=== PATIENT | female | born 1965 ===

== ENCOUNTER 2020-02-19 10:26 | Outpatient (REF) | payer OTHER, SELFPAY ==
[2020-02-20 09:44] LABS: BV Int Neg Control Negative (Negative); BV Int Pos Control Positive (Positive)
[2020-03-16 11:27] LABS: CT PCR NOT DETECTED (Not Detect.); NG PCR NOT DETECTED (Not Detect.)
== END 2020-02-19 10:27 | disposition home or self-care (01) ==
LOC: HO.LAB 10:26
PROVIDERS: PCP Internal Medicine; Visit Provider Advanced Practice Midwife
DX: N89.8 Other specified noninflammatory disorders of vagina (principal)
CPT/HCPCS: 81003; 87210; 87480; 87491; 87510; 87591; 87660; 99202

== ENCOUNTER 2020-02-26 15:24 | Outpatient (REF) | payer OTHER, SELFPAY ==
[2020-02-29 11:18] LABS: HPV mRNA E6/E7 rflx Not Detected (Not Detected)
== END 2020-02-26 15:25 | disposition home or self-care (01) ==
LOC: HO.LAB 15:24
PROVIDERS: Visit Provider Advanced Practice Midwife
DX: Z01.419 Encounter for gynecological examination (general) (routine) without abnormal findings (principal); N88.9 Noninflammatory disorder of cervix uteri, unspecified; N62 Hypertrophy of breast; Z11.51 Encounter for screening for human papillomavirus (HPV); Z78.0 Asymptomatic menopausal state
CPT/HCPCS: 87624; 87625; 88142

== ENCOUNTER 2020-03-07 09:52 | Outpatient (REF) | payer OTHER, SELFPAY ==
--- NOTE | 2020-03-07 09:58 | XR_ITS ---
EXAMINATION: XR LUMBOSACRAL SPINE CLINICAL INFORMATION: Low back pain COMPARISON: 07/15/2018 TECHNIQUE: AP and lateral views of the lumbar spine with an additional coned down lateral spot view of the lumbosacral junction. FINDINGS: 5 non-rib bearing lumbar type vertebral bodies are seen. The body and disc heights are maintained. Minimal anterior osteophytosis from the superior endplates of L3, L4, and L5. No compression fracture. Normal sagittal alignment. Lower lumbar facet arthropathy. Sacroiliac joints are patent. 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 Mild degenerative changes similar to the prior study.
== END 2020-03-07 09:53 | disposition home or self-care (01) ==
LOC: HO.XRAY 09:52
PROVIDERS: PCP Internal Medicine; Visit Provider Student in an Organized Health Care Education/Training Program
DX: M54.5 Low back pain (principal)
CPT/HCPCS: 72100

== ENCOUNTER 2020-03-11 12:19 | Outpatient (REF) | payer OTHER, SELFPAY ==
--- NOTE | 2020-03-11 12:24 | MM_ITS ---
EXAMINATION: MM SCREENING DIGITAL BREAST TOMOSYNTHESIS, BILATERAL CLINICAL INFORMATION: Screening. Asymptomatic. The lifetime risk of breast cancer based on the Tyrer-Cuzick Model is 7%. COMPARISON: Mammography: 01/02/2019, 12/29/2017, 11/30/2016, 11/23/2016, 11/20/2015 TECHNIQUE: Digital breast tomosynthesis is performed in both the craniocaudal and mediolateral oblique views along with computer-aided detection (CAD). Synthesized 2D images are generated from the tomosynthesis. Additional right MLO view is provided. FINDINGS: There are scattered areas of fibroglandular density (ACR BI-RADS breast composition Category b). Parenchymal pattern is similar to prior studies. Scattered subtle parenchymal asymmetries are stable. There is no developing density or interval mass or architectural abnormality. No abnormal calcifications. The axilla and skin contours are unremarkable. MM/MM tomosynthesis screening BI IMPRESSION: No significant changes from prior studies. ASSESSMENT: BI-RADS 2: Benign RECOMMENDATION: Routine annual mammography screening. This patient's information was entered into a reminder system with a target due date for their next mammogram.
== END 2020-03-11 12:20 | disposition home or self-care (01) ==
LOC: HO.MAMMO 12:19
PROVIDERS: PCP Internal Medicine; Visit Provider Internal Medicine
DX: Z12.31 Encounter for screening mammogram for malignant neoplasm of breast (principal)
CPT/HCPCS: 77063; 77067

== ENCOUNTER 2020-03-14 10:20 | Outpatient (REF) | payer OTHER, SELFPAY ==
[2020-03-15 19:57] LABS: C. trachomatis RNA TMA NOT DETECTED (NOT DETECTED); N. gonorrhoeae RNA TMA NOT DETECTED (NOT DETECTED)
== END 2020-03-14 10:21 | disposition home or self-care (01) ==
LOC: HO.LAB 10:20
PROVIDERS: PCP Internal Medicine; Visit Provider Advanced Practice Midwife
DX: N88.9 Noninflammatory disorder of cervix uteri, unspecified (principal); N89.8 Other specified noninflammatory disorders of vagina
CPT/HCPCS: 36415; 87491; 87591; 99212

== ENCOUNTER 2020-03-27 08:25 | Outpatient (REF) | payer OTHER, SELFPAY ==
[2020-03-28 08:40] LABS: BV Int Neg Control Negative (Negative); BV Int Pos Control Positive (Positive)
[2020-03-29 07:51] LABS: C. trachomatis RNA TMA NOT DETECTED (NOT DETECTED); N. gonorrhoeae RNA TMA NOT DETECTED (NOT DETECTED)
== END 2020-03-27 08:26 | disposition home or self-care (01) ==
LOC: HO.LNP 08:25
PROVIDERS: PCP Internal Medicine; Visit Provider Obstetrics & Gynecology
DX: N89.8 Other specified noninflammatory disorders of vagina (principal); E78.5 Hyperlipidemia, unspecified; Z11.8 Encounter for screening for other infectious and parasitic diseases; Z11.3 Encounter for screening for infections with a predominantly sexual mode of transmission; Z88.0 Allergy status to penicillin
CPT/HCPCS: 87480; 87491; 87510; 87591; 87660; 99212

== ENCOUNTER 2020-04-10 08:12 | Outpatient (REF) | payer OTHER, SELFPAY | END 2020-04-10 08:13 | disposition home or self-care (01) | LOC: HO.LAB 08:12 | PROVIDERS: PCP Internal Medicine; Visit Provider Obstetrics & Gynecology | DX: N87.0 Mild cervical dysplasia (principal) | CPT/HCPCS: 57454; 88305 ==

== ENCOUNTER 2020-04-23 10:18 | Outpatient (REF) | payer OTHER, SELFPAY ==
[2020-04-23 11:04] LABS: MANUAL DIFF FLAG NO
[2020-04-23 11:11] LABS: Basophils Percent Auto 0.3 % (0-2); Eosinophils Percent Auto 0.1 % (0-4); Hematocrit 36.7 % (37-47); Hemoglobin 12.2 g/dl (12.0-16.0); Imm Gran Abs Auto 0.04 X10*3/uL (0.00-0.03); Imm Gran Pct Auto 0.6 % (0.0-0.4); Lymphocytes Absolute Auto 2.1 X10*3/uL (1.2-4.9); Lymphocytes Percent Auto 30.9 % (20-40); Mean Corpuscular HGB Conc 33.2 g/dl (31.0-35.0); Mean Corpuscular Hemoglobin 31.4 pg (27.0-33.0); Mean Corpuscular Volume 94.6 fL (80-98); Mean Platelet Volume 10.3 fL (9.4-12.3); Monocytes Absolute Auto 0.5 X10*3/uL (0.1-1.2); Monocytes Percent Auto 6.9 % (2-11); Neutrophils Absolute Auto 4.2 X10*3/uL (2.0-8.3); Neutrophils Percent Auto 61.2 % (45-73); Platelet Count 307 X10*3/uL (160-400); Red Blood Count 3.88 X10*6/uL (4.20-5.50); Red Cell Distribution Width 13.1 % (11.0-16.0); White Blood Count 6.9 X10*3/uL (4.8-10.8)
[2020-04-23 11:16] LABS: Estimated Average Glucose 111 mg/dL; Hemoglobin A1c % 5.5 %
[2020-04-24 17:36] LABS: C. trachomatis RNA TMA NOT DETECTED (NOT DETECTED); N. gonorrhoeae RNA TMA NOT DETECTED (NOT DETECTED)
== END 2020-04-23 10:19 | disposition home or self-care (01) ==
LOC: HO.LAB 10:18
PROVIDERS: PCP Internal Medicine; Visit Provider Nurse Practitioner Family
DX: Z00.00 Encounter for general adult medical examination without abnormal findings (principal); N89.8 Other specified noninflammatory disorders of vagina
CPT/HCPCS: 36415; 83036; 85025; 87491; 87591

== ENCOUNTER 2020-04-24 11:17 | Emergency (ER) | payer OTHER, SELFPAY | END 2020-04-24 15:17 | disposition left against medical advice (07) | PROVIDERS: Emergency Provider Emergency Medicine; PCP Internal Medicine | DX: M54.5 Low back pain (principal) | CPT/HCPCS: Q3014 ==

== ENCOUNTER 2020-04-24 12:58 | Outpatient (REF) | payer OTHER, SELFPAY ==
--- NOTE | ~2020-04-24 | XR_ITS ---
EXAMINATION: XR SHOULDER, RIGHT CLINICAL INFORMATION: Right shoulder pain. COMPARISON: None TECHNIQUE: AP external rotation, Grashey, scapular Y, and axillary views of the right shoulder. FINDINGS: The bones and soft tissues are normal. No fracture. Glenohumeral and acromioclavicular alignment is anatomic with normal joint space. No abnormal soft tissue calcifications. XR/XR shoulder RT min 2V IMPRESSION: Unremarkable right shoulder.
--- NOTE | ~2020-04-24 | XR_ITS ---
EXAMINATION: XR THORACIC SPINE CLINICAL INFORMATION: Back pain. COMPARISON: None TECHNIQUE: 3 views of the thoracic spine were obtained. FINDINGS: Mild thoracic levoscoliosis is seen. Mild disc space narrowing is seen superiorly in the thoracic spine. Mild to moderate multilevel marginal osteophyte formation is seen most pronounced inferiorly. The vertebral bodies are intact. There is no acute fracture. The soft tissues are unremarkable. XR/XR thoracic spine 3V IMPRESSION: Mild thoracic levoscoliosis and mild to moderate multilevel degenerative changes. No acute abnormality.
== END 2020-04-24 12:59 | disposition home or self-care (01) ==
LOC: HO.XRAY 12:58
PROVIDERS: PCP Internal Medicine; Visit Provider Internal Medicine
DX: M25.511 Pain in right shoulder (principal); M54.9 Dorsalgia, unspecified
CPT/HCPCS: 72072; 73030

== ENCOUNTER 2020-04-29 08:00 | Outpatient (REF) | payer OTHER, SELFPAY | END 2020-04-29 08:01 | disposition home or self-care (01) | LOC: HO.LAB 08:00 | PROVIDERS: Visit Provider Obstetrics & Gynecology | DX: N87.0 Mild cervical dysplasia (principal); E78.5 Hyperlipidemia, unspecified; R03.0 Elevated blood-pressure reading, without diagnosis of hypertension; E78.00 Pure hypercholesterolemia, unspecified; E55.9 Vitamin D deficiency, unspecified; Z88.0 Allergy status to penicillin | CPT/HCPCS: 88305; 99212 ==

== ENCOUNTER → 2020-05-13 11:04 | Outpatient (BNVA) | payer OTHER, SELFPAY | PROVIDERS: PCP Internal Medicine; Visit Provider Obstetrics & Gynecology | DX: Z13.89 Encounter for screening for other disorder (principal) | CPT/HCPCS: Q3014 ==

== ENCOUNTER 2020-12-19 11:09 | Outpatient (REF) | payer OTHER, SELFPAY ==
[2020-12-19 11:27] LABS: MANUAL DIFF FLAG NO
[2020-12-19 11:58] LABS: Basophils Percent Auto 0.1 % (0-2); Eosinophils Percent Auto 0.1 % (0-4); Hematocrit 36.3 % (37-47); Hemoglobin 12.2 g/dl (12.0-16.0); Imm Gran Abs Auto 0.02 X10*3/uL (0.00-0.03); Imm Gran Pct Auto 0.3 % (0.0-0.4); Lymphocytes Absolute Auto 1.5 X10*3/uL (1.2-4.9); Lymphocytes Percent Auto 19.6 % (20-40); Mean Corpuscular HGB Conc 33.6 g/dl (31.0-35.0); Mean Corpuscular Hemoglobin 31.4 pg (27.0-33.0); Mean Corpuscular Volume 93.6 fL (80-98); Mean Platelet Volume 9.6 fL (9.4-12.3); Monocytes Absolute Auto 0.4 X10*3/uL (0.1-1.2); Monocytes Percent Auto 5.8 % (2-11); Neutrophils Absolute Auto 5.5 X10*3/uL (2.0-8.3); Neutrophils Percent Auto 74.1 % (45-73); Platelet Count 303 X10*3/uL (160-400); Red Blood Count 3.88 X10*6/uL (4.20-5.50); White Blood Count 7.5 X10*3/uL (4.8-10.8)
[2020-12-19 12:25] LABS: Estimated Average Glucose 117 mg/dL; Hemoglobin A1c % 5.7 %
[2020-12-19 12:29] LABS: Alanine Aminotransferase 13 U/L (0-31); Albumin Level 4.3 g/dL (3.5-5.0); Alkaline Phosphatase 95 U/L (39-117); Anion Gap 10 (12-20); Aspartate Amino Transferase 16 U/L (5-31); Bilirubin Total 0.5 mg/dL (0.0-1.0); Blood Urea Nitrogen 7 mg/dL (9-16); C Reactive Protein 0.85 mg/dL (< or = 0.50); Calcium 9.8 mg/dL (8.4-10.2); Carbon Dioxide 30 mmol/L (22-29); Chloride 104 mmol/L (96-108); Cholesterol 163 mg/dL; Estimated Glomerular Filt Rate > 60; Glucose Fasting 111 mg/dL (60-99); HDL Cholesterol 51 mg/dL; LDL Cholesterol Calculated 94 mg/dl; Potassium 4.1 mmol/L (3.3-5.1); Sodium 140 mmol/L (135-145); Total Protein 7.5 g/dL (6.5-8.0); Triglycerides 91 mg/dL
[2020-12-19 12:51] LABS: TSH reflex Free T4 1.34 uIU/mL (0.32-4.0); Vitamin D 25-OH Total 29.8 ng/mL (>30)
[2020-12-19 12:58] LABS: Erythrocyte Sedimentation Rate 38 MM/HR (0-20)
[2020-12-20 23:27] LABS: Anti Nuclear Antibody Screen POSITIVE (NEGATIVE); Anti Nuclear Antibody Titer 1:40 titer
== END 2020-12-19 11:10 | disposition home or self-care (01) ==
LOC: HO.LAB 11:09
PROVIDERS: PCP Internal Medicine; Visit Provider Internal Medicine
DX: M25.50 Pain in unspecified joint (principal); R03.0 Elevated blood-pressure reading, without diagnosis of hypertension; M47.816 Spondylosis without myelopathy or radiculopathy, lumbar region; E78.00 Pure hypercholesterolemia, unspecified; R73.01 Impaired fasting glucose; E55.9 Vitamin D deficiency, unspecified
CPT/HCPCS: 36415; 80053; 80061; 82306; 83036; 84443; 85025; 85652; 86038; 86039; 86140

== ENCOUNTER 2021-03-20 09:19 | Outpatient (REF) | payer OTHER, SELFPAY ==
--- NOTE | ~2021-03-20 | MM_ITS ---
EXAMINATION: MM SCREENING DIGITAL BREAST TOMOSYNTHESIS, BILATERAL CLINICAL INFORMATION: Screening. Asymptomatic. The lifetime risk of breast cancer based on the Tyrer-Cuzick Model is 8%. COMPARISON: Mammography: March 11, 2020 and studies dating back to November 03, 2013 TECHNIQUE: Digital breast tomosynthesis is performed in both the craniocaudal and mediolateral oblique views along with computer-aided detection (CAD). Synthesized 2D images are generated from the tomosynthesis. FINDINGS: There are scattered areas of fibroglandular density (ACR BI-RADS breast composition Category b). There are no significant masses, abnormal calcifications, or other abnormalities. MM/MM tomosynthesis screening BI IMPRESSION: There are no significant changes from prior study. ASSESSMENT: BI-RADS 1: Negative RECOMMENDATION: Routine annual mammography screening. This patient's information was entered into a reminder system with a target due date for their next mammogram.
[2021-03-20 10:25] LABS: MANUAL DIFF FLAG NO
[2021-03-20 11:29] LABS: Basophils Percent Auto 0.2 % (0-2); Eosinophils Percent Auto 0.1 % (0-4); Hematocrit 36.4 % (37.0-47.0); Imm Gran Abs Auto 0.04 X10*3/uL (0.00-0.03); Imm Gran Pct Auto 0.5 % (0.0-0.4); Lymphocytes Absolute Auto 1.8 X10*3/uL (1.2-4.9); Mean Corpuscular Hemoglobin 31.2 pg (27.0-33.0); Mean Corpuscular Volume 94.5 fL (80.0-98.0); Mean Platelet Volume 9.7 fL (9.4-12.3); Monocytes Absolute Auto 0.5 X10*3/uL (0.1-1.2); Monocytes Percent Auto 6.5 % (2-11); Neutrophils Percent Auto 71.7 % (45-73); Platelet Count 337 X10*3/uL (160-400); Red Blood Count 3.85 X10*6/uL (4.20-5.50); Red Cell Distribution Width 13.3 % (11.0-16.0); White Blood Count 8.4 X10*3/uL (4.8-10.8)
[2021-03-20 11:55] LABS: Alanine Aminotransferase 14 U/L (0-31); Albumin Level 4.2 g/dL (3.5-5.0); Alkaline Phosphatase 93 U/L (39-117); Anion Gap 11 (12-20); Aspartate Amino Transferase 16 U/L (5-31); Bilirubin Total 0.5 mg/dL (0.0-1.0); Blood Urea Nitrogen 8 mg/dL (9-16); Calcium 9.8 mg/dL (8.4-10.2); Carbon Dioxide 30 mmol/L (22-29); Chloride 106 mmol/L (96-108); Cholesterol 165 mg/dL; Estimated Glomerular Filt Rate > 60; Glucose Fasting 120 mg/dL (60-99); HDL Cholesterol 60 mg/dL; LDL Cholesterol Calculated 92 mg/dl; Potassium 4.7 mmol/L (3.3-5.1); Sodium 142 mmol/L (135-145); Total Protein 7.5 g/dL (6.5-8.0); Triglycerides 68 mg/dL
[2021-03-20 12:05] LABS: Appearance Urine CLEAR; Color Urine YELLOW; Glucose Urine UA NEG (NEG); Leukocyte Esterase Urine NEG (NEG); Nitrite Urine NEG (NEG); PH 7.5 (5.0-8.0); Specific Gravity - Urine 1.025 (1.005-1.025); UACC Culture Trigger NO; Urine Blood 1+ (NEG); Urine Ketones NEG (NEG); Urine Protein NEG (NEG-TRACE)
[2021-03-20 12:11] LABS: TSH reflex Free T4 1.38 uIU/mL (0.32-4.0); Vitamin D 25-OH Total 27.3 ng/mL (>30)
[2021-03-20 12:54] LABS: Squamous Epithelial Cell Urine TRACE /LPF; WBC Urine 0-2 /HPF (0-4)
== END 2021-03-20 09:20 | disposition home or self-care (01) ==
LOC: HO.MAMMO 09:19
PROVIDERS: PCP Internal Medicine; Visit Provider Internal Medicine
DX: Z12.31 Encounter for screening mammogram for malignant neoplasm of breast (principal); E78.00 Pure hypercholesterolemia, unspecified; E55.9 Vitamin D deficiency, unspecified; I10 Essential (primary) hypertension
CPT/HCPCS: 36415; 77063; 77067; 80053; 80061; 81001; 81003; 82306; 84443; 85025

== ENCOUNTER 2021-05-13 08:20 | Outpatient (REF) | payer OTHER, SELFPAY ==
--- NOTE | ~2021-05-13 | XR_ITS ---
EXAMINATION: XR PELVIS XR HIP, LEFT CLINICAL INFORMATION: Pelvic and perineal pain. COMPARISON: Radiographs dated 07/04/2018. TECHNIQUE: AP view of the pelvis. AP and frog-leg lateral views of the left hip. FINDINGS: Bony alignment and mineralization are normal. The acetabular joint spaces are well-maintained. There is mild peripheral osteophyte formation of the bilateral acetabular roofs. The femoral heads appear smooth. There is no fracture or dislocation. A calcified fibroid is seen within the left hemipelvis. There are pelvic phleboliths. XR/XR pelvis 1-2V IMPRESSION: 1. There is stable mild osteoarthritic change of the bilateral hips. 2. No fracture or dislocation is seen. 3. There is a calcified pelvic fibroid.
--- NOTE | ~2021-05-13 | XR_ITS ---
EXAMINATION: XR LUMBOSACRAL SPINE CLINICAL INFORMATION: Lower back pain. COMPARISON: Radiographs dated 03/07/2020. TECHNIQUE: AP and lateral views of the lumbar spine and lateral view of the lumbosacral junction. FINDINGS: The vertebral bodies and posterior elements are normal. The disc spaces are preserved and the vertebral alignment is normal. There is multi-level very mild lumbar spondylosis. The paraspinal soft tissues are normal. A calcified fibroid is seen within the left hemipelvis. XR/XR lumbar spine 2-3V IMPRESSION: 1. No acute fracture or spondylolisthesis is seen. 2. The lumbar disc spaces are well-maintained. 3. There is multi-level very mild lumbar spondylosis.
== END 2021-05-13 08:21 | disposition home or self-care (01) ==
LOC: HO.XRAY 08:20
PROVIDERS: PCP Internal Medicine; Visit Provider Internal Medicine
DX: Z01.411 Encounter for gynecological examination (general) (routine) with abnormal findings (principal); R10.2 Pelvic and perineal pain; N88.9 Noninflammatory disorder of cervix uteri, unspecified; M54.50 Low back pain, unspecified
CPT/HCPCS: 57500; 72100; 72170; 99212

== ENCOUNTER 2021-05-13 09:33 | Outpatient (REF) | payer OTHER, SELFPAY ==
[2021-05-21 16:22] LABS: HPV mRNA E6/E7 rflx Not Detected (Not Detected)
== END 2021-05-13 09:34 | disposition home or self-care (01) ==
LOC: HO.LAB 09:33
PROVIDERS: Visit Provider Obstetrics & Gynecology
DX: Z01.419 Encounter for gynecological examination (general) (routine) without abnormal findings (principal); Z11.51 Encounter for screening for human papillomavirus (HPV); N88.9 Noninflammatory disorder of cervix uteri, unspecified
CPT/HCPCS: 87624; 88142; 88305

== ENCOUNTER → 2021-05-27 12:48 | Outpatient (BNVA) | payer OTHER, SELFPAY | PROVIDERS: PCP Internal Medicine; Visit Provider Obstetrics & Gynecology | DX: N87.0 Mild cervical dysplasia (principal) | CPT/HCPCS: Q3014 ==

== ENCOUNTER 2021-07-17 08:22 | Outpatient (REF) | payer OTHER, SELFPAY ==
[2021-07-17 10:08] LABS: Estimated Average Glucose 123 mg/dL; Hemoglobin A1c % 5.9 %
[2021-07-17 10:34] LABS: Erythrocyte Sedimentation Rate 27 MM/HR (0-20)
[2021-07-17 10:56] LABS: Alanine Aminotransferase 15 U/L (0-31); Albumin Level 4.1 g/dL (3.5-5.0); Alkaline Phosphatase 85 U/L (39-117); Anion Gap 15 (12-20); Aspartate Amino Transferase 17 U/L (5-31); Bilirubin Total 0.5 mg/dL (0.0-1.0); Blood Urea Nitrogen 9 mg/dL (9-16); C Reactive Protein 0.53 mg/dL (< or = 0.50); Calcium 9.6 mg/dL (8.4-10.2); Carbon Dioxide 26 mmol/L (22-29); Chloride 104 mmol/L (96-108); Cholesterol 159 mg/dL; Estimated Glomerular Filt Rate > 60; Glucose Fasting 116 mg/dL (60-99); HDL Cholesterol 60 mg/dL; LDL Cholesterol Calculated 86 mg/dl; Potassium 4.1 mmol/L (3.3-5.1); Sodium 141 mmol/L (135-145); Total Protein 7.2 g/dL (6.5-8.0); Triglycerides 69 mg/dL
[2021-07-17 12:26] LABS: Rheumatoid Factor < 15.0 IU/mL (<15.0)
[2021-07-21 21:16] LABS: Anti DNA DS Antibody <1 IU/mL; Scleroderma 70 Antibody <1.0 NEG AI (<1.0 NEG)
== END 2021-07-17 08:23 | disposition home or self-care (01) ==
LOC: HO.LAB 08:22
PROVIDERS: PCP Internal Medicine; Visit Provider Internal Medicine
DX: M25.50 Pain in unspecified joint (principal); R76.8 Other specified abnormal immunological findings in serum; E78.00 Pure hypercholesterolemia, unspecified; M79.7 Fibromyalgia; R73.01 Impaired fasting glucose
CPT/HCPCS: 36415; 80053; 80061; 83036; 84443; 85652; 86140; 86225; 86235; 86431

== ENCOUNTER → 2021-07-24 12:16 | Outpatient (BNVA) | payer OTHER, SELFPAY | PROVIDERS: PCP Internal Medicine; Visit Provider Obstetrics & Gynecology | DX: B37.2 Candidiasis of skin and nail (principal) | CPT/HCPCS: 99212 ==

== ENCOUNTER → 2021-08-14 10:57 | Outpatient (BNVA) | payer OTHER, SELFPAY | PROVIDERS: PCP Internal Medicine; Visit Provider Obstetrics & Gynecology | DX: N87.0 Mild cervical dysplasia (principal) | CPT/HCPCS: 99212 ==

== ENCOUNTER 2021-08-15 08:13 | Day surgery (SDC) | payer OTHER, SELFPAY ==
--- NOTE | 2021-08-14 08:55 | HO.ANESPROP2 ---
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) Depression (Acute) Primary insomnia (Acute) Lumbar spondylosis (Acute) Vitamin D deficiency (Acute) Impaired fasting glucose (Acute) Pure hypercholesterolemia (Acute) Elevated blood pressure reading (Acute) JENNIFER I (cervical intraepithelial neoplasia I) (Acute) Physical exam (Acute) Vaginal discharge (Acute) Lesion of cervix (Acute) Low back pain (Acute) Vaginal irritation (Acute) Past Medical History Medical History Asthma Degenerative joint disease of thoracic spine Depression Elevated blood pressure reading Hyperlipemia Impaired fasting glucose Insomnia Lumbar spondylosis Obesity (BMI 30-39.9) Physical exam Primary insomnia Pure hypercholesterolemia Vitamin D deficiency Family History Family History Father Cancer Hypertension Bladder cancer Mother Hypertension Diabetes Uterine cancer Maternal Grandmother No problems noted. Sister No problems noted. Surgical History Surgical History History of varicose veins Social History Social History Housing: Apartment Alcohol intake: never Patient Tobacco Use Status: Never used Tobacco Second Hand Smoke Exposure: No Use of substances other than those prescribed or required for medical reasons: No Are you DNR?: No Advance Directives: No Advance Directives Information Provided: Yes service: No Current occupational status: disabled Cognitive needs: No Hearing needs: No Vision needs: No Meds Allergies Allergy/AdvReac Type Severity Reaction Status Date / Time Penicillins [PENICILLINS] Allergy Intermediate RASH/ITCHIN Verified 08/14/21 11:04 G Home Medications Medication Instructions Recorded Confirmed Last Taken Type acetaminophen 500 mg tablet 500 mg PO Q6H PRN 02/26/20 06/19/21 Unknown History baclofen 10 mg tablet 10 mg PO DAILY 02/26/20 06/19/21 Unknown History hydroxyzine pamoate 50 mg capsule 50 mg PO BEDTIME 02/26/20 06/19/21 Unknown History sertraline 100 mg tablet 100 mg PO DAILY 02/26/20 06/19/21 Unknown History trazodone 50 mg tablet 50 mg PO DAILY 02/26/20 06/19/21 Unknown History Exam Exam Date and Time: August 14, 2021 0855 Pertinent Lab Results Pertinent Lab Results: Laboratory Tests 03/20/21 07/17/21 10:24 Unknown WBC 8.4 Hgb 12.0 Hct 36.4 L Plt Count 337 Sodium 141 Potassium 4.1 Chloride 104 Carbon Dioxide 26 BUN 9 Creatinine 0.67 Assessment and Plan Assessment Anesthesia Assessment: Chart Reviewed Documented by User: Teresa Kyle MD 08/15/21 11:57 PMFSH Past Medical History Medical History Asthma Degenerative joint disease of thoracic spine Depression Elevated blood pressure reading Hyperlipemia Impaired fasting glucose Insomnia Lumbar spondylosis Obesity (BMI 30-39.9) Physical exam Primary insomnia Pure hypercholesterolemia Vitamin D deficiency Family History Family History Father Cancer Hypertension Bladder cancer Mother Hypertension Diabetes Uterine cancer Maternal Grandmother No problems noted. Sister No problems noted. Family history of problems with anesthesia: No Surgical History Surgical History History of varicose veins History of Problems with Anesthesia: No Social History Social History Housing: Apartment Alcohol intake: never Patient Tobacco Use Status: Never used Tobacco Second Hand Smoke Exposure: No Use of substances other than those prescribed or required for medical reasons: No Are you DNR?: No Advance Directives: No Advance Directives Information Provided: Yes service: No Current occupational status: disabled Cognitive needs: No Hearing needs: No Vision needs: No Meds Allergies Allergy/AdvReac Type Severity Reaction Status Date / Time Penicillins [PENICILLINS] Allergy Intermediate RASH/ITCHIN Verified 08/14/21 11:04 G Home Medications Medication Instructions Recorded Confirmed Last Taken Type acetaminophen 500 mg tablet 500 mg PO Q6H PRN 02/26/20 06/19/21 Unknown History baclofen 10 mg tablet 10 mg PO DAILY 02/26/20 06/19/21 Unknown History hydroxyzine pamoate 50 mg capsule 50 mg PO BEDTIME 02/26/20 06/19/21 Unknown History sertraline 100 mg tablet 100 mg PO DAILY 02/26/20 06/19/21 Unknown History trazodone 50 mg tablet 50 mg PO DAILY 02/26/20 06/19/21 Unknown History Exam Height,Weight and Vital Signs: Height 5 ft Weight 86.636 kg Vital Signs Temp Pulse Resp BP Pulse Ox O2 Del Method 08/15/21 09:45 98.2 F 81 16 148/85 H 96 Room Air Airway Mallampati Class: III TM Dist: >3cm Loose/Missing/Broken Teeth: Yes (Loose incisor bottom ) Heart: RRR Lungs: CTAB Assessment and Plan Assessment Anesthesia Assessment: Anesthesia Plan Discussed Final Anesthetic Review Family History of Problems with Anesthesia: No History of Problems with Anesthesia: No ASA Class: III Final Preanesthetic Review: No Changes in Pt Med Stat, Meds/Allgs Chart Reviewed, Consent Obtained/Reviewed and Anes Risks/Benef Reviewed Patient Risk: Intermediate Procedure Risk: Low Assessment/Block/Sedation in SS: Assess/Block/Sedation-SS Anesthetic Plan Anesthetic Plan: GA Disposition: Standard PACU
[2021-08-15] VITALS (7 sets, daily range): BP systolic 126–148; BP diastolic 71–85; PULSE 81–91; RESP 16–18; TEMP 36.7–36.9; O2SAT 94–98; BMI 37.3
[2021-08-15] MEDS: Lactated Ringers 1,000 ML 100 ML IVCONT (10:04)
--- NOTE | 2021-08-15 10:44 | MHC.SHP ---
Pre-Procedural Eval Section A Date of Service: 08/15/21 The patient is an INPATIENT: No Changes since office visit: No Cold of Flu in the past 2 weeks, No New Medical Problems, No Changes in Medication and No Patient answered all questions The History & Physical has been completed within 30 days and I have reviewed it.: Yes Section B Chief Complaint: edilma 1 Allergies: Allergies Allergy/AdvReac Type Severity Reaction Status Date / Time Penicillins [PENICILLINS] Allergy Intermediate RASH/ITCHIN Verified 08/14/21 11:04 G Plan Diagnosis/Plan: Unchanged I have reviewed the history and physical and performed a pertinent physical examination on my patient. No changes have occurred unless specified.
--- NOTE | 2021-08-15 11:09 | PM.OP ---
Brief Operative Note Date of Service: 08/15/21 Pre-op diagnosis: Persistent JENNIFER 1 Post-op diagnosis: same Procedure: LEEP CONE with post CONE ECC under colposcopic guidance Surgeon: Pramod Coronado MD Anesthesia: local and other (Paracervical block) Was an Director Of Instructional Technology used for this Procedure?: No Estimated blood loss (mL): 0 Pathology: other (Cervical cone, top-hat endocervical excision, Post cone ECC) Disposition: other (Home)
--- NOTE | 2021-08-15 11:10 | P.OP_ITS ---
Operative Note Operative Note Date of Service: 08/15/21 Narrative: Pre op diagnosis: Persistent JENNIFER 1 Operation: Colposcopy, Loop electrical excision procedure cone, top hat endocervical excision, post cone ECC Postop diagnosis: the same Quantitative blood loss: 10 cc Surgeon: Pramod Coronado MD, FACOG Licensed Social Worker: None Pathology: Cervical cone, top-hat endo cervical excision, endo cervical curettage Complications: none Anesthesia: MAC and Para cervical block Procedure: The patient was put in a dorsal lithotomy position, scrubbed and draped in the usual sterile fashion. A speculum was inserted inside the patient's vagina. The cervix is assessed using the colposcope with acetic acid , the lesions were seen, and at least 1 cm of the squamocolumnar junction was observed. 20 x 5 mm size loop was selected based upon the diameter of the lesion. Lugol solution was used to outline the lesions and area of the transformation zone order to be removed 10 cc of xylocaine with epinephrine were injected submucosally into the surface of the cervix (ectocervix) at the 3, 6, 9, and 12 o'clock positions. The electrosurgical generator is set at 30 to 40 seay on blend 1. The loop is carefully passed simultaneously around and under the transformation zone, in order to ensure excising it making sure the lesion is at least 5 mm far from the specimen margins . The loop was allowed to glide through the cervix from one side to the other, allowing the cutting current to divide the tissue. Since ECC was positive and the entire endo cervical canal was not visualized well, endo cervical disease could be beyond the reach of the loop, additional tissue was excised from this area with a smaller-diameter loop , endo cervical top-hat excision was performed An endo cervical curettage is performed following completion of excision, and hemostasis is obtained with a Ball electrode or regular tip cautery. At the end, Monsel's solution was applied to the cone bed. The patient tolerated the procedure well and, all instruments were taken out of the patient vaginal cavity, and the patient was transferred to the PACU in stable condition.
[2021-08-15] MEDS: Acetaminophen 325 MG TABLET 650 MG PO (11:36)
== END 2021-08-15 12:35 | disposition home or self-care (01) ==
PROVIDERS: PCP Internal Medicine; Visit Provider Obstetrics & Gynecology
PROC: 0UBC7ZZ Excision of Cervix, Via Natural or Artificial Opening (ICD-10-PCS; CPT 57522; principal; 2021-08-15 10:10)
DX: N87.1 Moderate cervical dysplasia (principal); J45.909 Unspecified asthma, uncomplicated; R03.0 Elevated blood-pressure reading, without diagnosis of hypertension; E78.5 Hyperlipidemia, unspecified; E78.00 Pure hypercholesterolemia, unspecified; E55.9 Vitamin D deficiency, unspecified; R76.0 Raised antibody titer; R73.01 Impaired fasting glucose; Z79.899 Other long term (current) drug therapy; Z88.0 Allergy status to penicillin
CPT/HCPCS: 57460; 88305; 88307; J2250; J2405; J3010

== ENCOUNTER 2021-08-27 10:30 | Emergency (ER) | payer OTHER, SELFPAY ==
--- NOTE | ~2021-08-27 | XR_ITS ---
EXAMINATION: XR THORACOLUMBAR SPINE CLINICAL INFORMATION: Pain. COMPARISON: X-ray thoracic spine 04/24/2020 TECHNIQUE: 3 views FINDINGS: Mild levoconvex curvature of the thoracic spine. On the lateral images, the cervicothoracic junction, upper vertebral bodies are partially obscured by overlapping densities. Posterior alignment is maintained. Mild to moderate multilevel spondylosis in the thoracic spine. No acute fracture is seen. Bones appear osteopenic. The included portions of the cervical and lumbar spine, are incompletely evaluated, without obvious fracture. No suspicious findings in the visualized lung. XR/XR thoracic spine 2V IMPRESSION: Mild thoracic levoscoliosis. Mild to moderate multilevel spondylosis in the thoracic spine. No acute fractures seen. Osteopenia.
[2021-08-27 10:36] VITALS: BP 149/60; PULSE 86; RESP 16; TEMP 36; O2SAT 99; BMI 37.5
--- NOTE | 2021-08-27 11:14 | ED_ITS ---
HPI - General Adult General Chief complaint: Back Pain/Injury Stated complaint: R Side Pain Time Seen by Provider: 08/27/21 11:14 Source: patient and certified court/medical interpreter Mode of arrival: ambulatory Limitations: language barrier History of Present Illness HPI narrative: Patient is a 55 year old female presenting to the emergency department today with mid back pain. Patient states that over the last few days she has had mid back pain that is worse with movement. Patient denies any dizziness, lightheadedness, abdominal pain, nausea, vomiting, fever, chills, blurry vision, double vision, loss of vision, chest pain, difficulty breathing, shortness of breath, night sweats, pain with urination, increased urinary frequency, increased urinary urgency, blood in her urine or stool, syncope or a near syncopal episode, recent trauma or falls, bowel incontinence, bladder incontinence, bowel retention, bladder retention, or any other complaints at this time. Onset (ago): day(s) Location: back Radiation: non-radiation Severity: mild Severity scale (1-10): 3 Quality: dull Pain Consistency: constant Relieving factors: none Exacerbating factors: movement Associated symptoms: denies other symptoms Treatments prior to arrival: none Related Data Home Medications Medication Instructions Recorded Confirmed acetaminophen 500 mg tablet 500 mg PO Q6H PRN 02/26/20 06/19/21 baclofen 10 mg tablet 10 mg PO DAILY 02/26/20 06/19/21 hydroxyzine pamoate 50 mg capsule 50 mg PO BEDTIME 02/26/20 06/19/21 sertraline 100 mg tablet 100 mg PO DAILY 02/26/20 06/19/21 trazodone 50 mg tablet 50 mg PO DAILY 02/26/20 06/19/21 Previous Rx's Medication Instructions Recorded acetaminophen 650 mg 650 mg PO Q8H PRN pain 30 days #90 05/20/20 tablet,extended release (Mapap tabs Arthritis Pain) ibuprofen 600 mg tablet 600 mg PO TID PRN pain 30 days #90 12/23/20 tabs cholecalciferol (vitamin D3) 25 25 mcg PO DAILY 90 days #90 caps 03/21/21 mcg (1,000 unit) capsule albuterol sulfate 90 mcg/actuation 2 puff inhalation Q6H PRN 06/19/21 aerosol inhaler (ProAir HFA) shortness of breath or wheezing 30 days #18 grams azithromycin 250 mg tablet See Rx Instructions PO .COMPLEX #6 06/19/21 tabs nebulizers (Compact Compressor #1 ea 06/19/21 Nebulizer) atorvastatin 20 mg tablet 20 mg PO QPM 90 days #90 tabs 06/20/21 clotrimazole-betamethasone 1 1 appl topical BID 5 days #45 grams 07/24/21 %-0.05 % topical cream cephalexin 500 mg capsule 500 mg PO Q6H 7 days #28 caps 08/27/21 Allergies Allergy/AdvReac Type Severity Reaction Status Date / Time Penicillins [PENICILLINS] Allergy Intermediate RASH/ITCHIN Verified 08/14/21 11:04 G Review of Systems Constitutional: Constitutional: Reports no additional constitutional complaints, Denies chills, Denies fever(s) and Denies night sweats Eyes: Eyes: Reports no additional eye complaints, Denies blurry vision, Denies change in vision, Denies diplopia, Denies eye discharge, Denies loss of vision and Denies eye pain ENT: Denies dizziness Cardiovascular: Cardiovascular: Reports no additional cardiovascular complaints, Denies chest pain, Denies lightheadedness, Denies Loss of Consciousness and Denies dyspnea Respiratory: Respiratory: Reports no additional respiratory complaints and Denies dyspnea Gastrointestinal: Gastrointestinal: Reports no additional gastrointestinal complaints, Denies abdominal pain, Denies melena, Denies hematochezia, Denies change in bowel habits and Denies change in stool character Genitourinary: Genitourinary: Denies hematuria, Denies urinary frequency, Denies dysuria, Denies urinary incontinence, Denies urinary hesitancy and Denies urinary urgency Musculoskeletal: Musculoskeletal: Reports no additional musculoskeletal complaints, Reports back pain, Denies numbness and Denies tingling Neurologic: Denies dizziness, Denies loss of vision, Denies numbness and Denies tingling Psychiatric: Psychiatric: Reports no additional psychiatric complaints Endocrine: Endocrine: Reports no additional endocrine complaints Hematologic/Lymphatic: Hematologic/Lymphatic: Reports no additional hematologic/lymphatic complaints Allergic/Immunologic: Allergic/Immunologic: Reports no additional allergic/immunologic complaints PMF Past Medical History Attestation statement: The following information was validated with the patient. Source: old records reviewed Medical History Asthma Hyperlipemia Insomnia Surgical History History of varicose veins Family History Family History Father Cancer Hypertension Bladder cancer Mother Hypertension Diabetes Uterine cancer Maternal Grandmother No problems noted. Sister No problems noted. Social History Social History Housing: Apartment Alcohol intake: never Patient Tobacco Use Status: Never used Tobacco Second Hand Smoke Exposure: No Advance Directives: No Advance Directives Information Provided: Yes service: No Current occupational status: disabled Cognitive needs: No Hearing needs: No Vision needs: No Physical Exam ED Vital Signs: Vital Signs - 24 hr 08/27/21 10:36 Temperature 96.8 F Pulse Rate 86 Respiratory Rate 16 Blood Pressure 149/60 H Pulse Oximetry 99 Oxygen Delivery Method Room Air BMI result Body Mass Index 37.5 Const General: cooperative, no acute distress, alert and awake Nutritional Appearance: well nourished Orientation/consciousness: patient oriented x3 Limitations: no limitations HENMT Head: Yes normal to inspection and Yes atraumatic Ears: hearing grossly normal bilaterally and external ears normal General nose exam: Normal external nose present, no nasal discharge noted and no epistaxis Face and sinus: Yes normal facial exam, No abrasion and No laceration Mouth: Normal oral and palatal mucosa present, no drooling and no muffled voice Eyes General: appearance normal, both eyes and all related structures Periorbital: periorbital findings normal Eyelids: Yes eyelids normal Conjunctivae: conjunctivae normal Pupils: Equal, round and reactive pupils present EOM: EOMs intact bilaterally Neck Neck: Yes normal visual inspection, Yes full ROM and Yes no lymphadenopathy Chest Chest palpation & inspection: normal inspection of the chest Resp Effort & Inspection: normal respiratory effort and able to speak in complete sentences Auscultation: clear to auscultation bilaterally Cardio Rate: regular rate Rhythm: regular rhythm GI Inspection: Yes normal to inspection General: Yes CVA tenderness and Yes no CVA tenderness Back/Spine/Pelvis Back: no CVA tenderness and CVA tenderness Cervical Spine: normal cervical lordosis and cervical ROM normal Thoracic/Lumbar Spine: thoracic and lumbar spine normal to inspection and thoraco-lumbar ROM normal Neuro General: patient oriented x3 and moves all extremities Cranial nerves: Yes Equal, round and reactive pupils present Cognition (Neuro): normal cognition Motor exam (neuro): 5/5 motor strength present throughout Sensory Exam: Normal double simultaneous stimulation for sensation Coordination: [id number] test normal Extrem General: Yes normal to inspection, Yes full ROM and Yes capillary refill normal Psych Appearance: grossly normal Mental Status: mental status grossly normal Affect: normal affect Attitude: cooperative Thought process: Normal thought process present Thought content: Normal thought content present Insight: Good insight present (Psych) Medical Decision Making MDM Narrative Medical decision making narrative: Patient is a 55 year old female presenting to the emergency department today with mid back pain. Patient's physical exam was unremarkable. Patient's urine showed an acute UTI. Patient's thoracic spine x-ray showed no acute process. I explained my physical exam findings as well as all test results to the patient. I answered all questions asked by the patient. Patient received IM toradol and PO Flexeril which she stated helped her symptoms significantly. I stressed the importance of the patient taking her medication as prescribed. I stressed the importance of the patient following up with her primary care provider. I stressed the importance of the patient returning to the emergency department immediately if her symptoms were to worsen or if she were to develop any dizziness, shortness of breath, difficulty breathing, chest pain, blurry vision, loss of vision, nausea, vomiting, abdominal pain, fever, chills, back pain, or any other complaints. Patient verbalized agreement and understanding with this t reatment plan and discharge. Differential Diagnosis Differential Diagnosis: UTI, mechanical back pain Medical Records Medical records reviewed: Yes I reviewed the patient's medical records. Lab Data Lab results reviewed: Yes I reviewed the patient's lab results. Labs: Lab Results 08/27/21 Range/Units 11:44 Urine Color STRAW Urine Appearance CLEAR Urine pH 6.5 (5.0-8.0) Ur Specific [place] <= 1.005 (1.005-1.025) Urine Protein NEG (NEG-TRACE) MG/DL Urine Glucose (UA) NEG (NEG) MG/DL Urine Ketones NEG (NEG) MG/DL Urine Blood 1+ H (NEG) Urine Nitrite NEG (NEG) Ur Leukocyte Esterase 1+ H (NEG) Urine RBC 5-9 H (0) /HPF Urine WBC 1-4 (0-4) /HPF Ur Squamous Epith Cells TRACE /LPF Urine Bacteria NONE /LPF Imaging Data Thoracic spine x-ray: Attestation: I personally reviewed and interpreted this imaging study as follows: My impression: No acute fractures. Radiologist's impression: EXAMINATION: XR THORACOLUMBAR SPINE CLINICAL INFORMATION: Pain.? COMPARISON: X-ray thoracic spine 04/24/2020? TECHNIQUE: 3 views? FINDINGS: Mild levoconvex curvature of the thoracic spine. On the lateral images, the cervicothoracic junction, upper vertebral bodies are partially obscured by overlapping densities. Posterior alignment is maintained. Mild to moderate multilevel spondylosis in the thoracic spine. No acute fracture is seen. Bones appear osteopenic. The included portions of the cervical and lumbar spine, are incompletely evaluated, without obvious fracture. No suspicious findings in the visualized lung. XR/XR thoracic spine 2V IMPRESSION: Mild thoracic levoscoliosis. Mild to moderate multilevel spondylosis in the thoracic spine. No acute fractures seen. Osteopenia.? Dictated By: Gabe Duncan MD Signed By: Electronically signed by Gabe Duncan MD 08/27/21 0757 Discharge Plan Discharge Clinical Impression: Urinary tract infection Patient Disposition: Home, Self-Care Instructions: Urinary Tract Infection in Women (ED) Additional Instructions: Follow up with your primary care provider. Return to the emergency department immediately if your symptoms worsen or if you develop any dizziness, shortness of breath, difficulty breathing, chest pain, blurry vision, loss of vision, nausea, vomiting, abdominal pain, fever, chills, back pain, or any other complaints. Prescriptions: New cephalexin 500 mg capsule 500 mg PO Q6H 7 Days Qty: 28 0RF No Action acetaminophen [Mapap Arthritis Pain] 650 mg tablet extended release 650 mg PO Q8H PRN (Reason: pain) 30 Days Qty: 90 3RF ibuprofen 600 mg tablet 600 mg PO TID PRN (Reason: pain) 30 Days Qty: 90 0RF Rx Instructions: Take with food atorvastatin 20 mg tablet 20 mg PO QPM 90 Days Qty: 90 1RF azithromycin 250 mg tablet See Rx Instructions PO .COMPLEX Qty: 6 0RF Rx Instructions: take 500 mg today (day 1), then 250 mg for 4 days (days 2-5) PO (DME) Compact Compressor Nebulizer Misc See Rx Instructions .Route Qty: 1 0RF Rx Instructions: As directed albuterol sulfate [ProAir HFA] 90 mcg/actuation HFA aerosol inhaler 2 puff inhalation Q6H PRN (Reason: shortness of breath or wheezing) 30 Days Qty: 18 5RF cholecalciferol (vitamin D3) 25 mcg (1,000 unit) capsule 25 mcg PO DAILY 90 Days Qty: 90 3RF baclofen 10 mg tablet 10 mg PO DAILY sertraline 100 mg tablet 100 mg PO DAILY acetaminophen 500 mg tablet 500 mg PO Q6H PRN hydroxyzine pamoate 50 mg capsule 50 mg PO BEDTIME trazodone 50 mg tablet 50 mg PO DAILY clotrimazole-betamethasone 1-0.05 % cream 1 appl topical BID 5 Days Qty: 45 0RF Referrals: Nathan Xavier MD [Primary Care Provider] - Interventions: ED Discharge Assessment Last Done: 08/27/21 12:49 Discharge Date/Time: 08/27/21 12:51 Print Language: Guatemalan
[2021-08-27 11:52] LABS: Appearance Urine CLEAR; Color Urine STRAW; Glucose Urine UA NEG (NEG); Leukocyte Esterase Urine 1+ (NEG); Nitrite Urine NEG (NEG); PH 6.5 (5.0-8.0); Specific Gravity - Urine <= 1.005 (1.005-1.025); UACC Culture Trigger YES; Urine Blood 1+ (NEG); Urine Ketones NEG (NEG); Urine Protein NEG (NEG-TRACE)
[2021-08-27 12:00] LABS: Squamous Epithelial Cell Urine TRACE /LPF
[2021-08-27] MEDS: Cyclobenzaprine HCl 5 MG TABLET PO (12:03)
[2021-08-27] MEDS: Ketorolac Tromethamine 15 MG/ML VIAL IM (12:04)
== END 2021-08-27 12:51 | disposition home or self-care (01) ==
PROVIDERS: Physician Assistant Medical; Emergency Provider Emergency Medicine; PCP Internal Medicine
DX: N39.0 Urinary tract infection, site not specified (principal); M54.6 Pain in thoracic spine; M54.50 Low back pain, unspecified; Z79.899 Other long term (current) drug therapy
CPT/HCPCS: 72070; 81001; 87086; 96372; 99284; J1885

== ENCOUNTER → 2021-08-28 12:19 | Outpatient (BNVA) | payer OTHER, SELFPAY | PROVIDERS: PCP Internal Medicine; Visit Provider Obstetrics & Gynecology | DX: N87.0 Mild cervical dysplasia (principal) | CPT/HCPCS: 99212 ==

== ENCOUNTER 2021-12-02 09:08 | Outpatient (REF) | payer OTHER, SELFPAY ==
[2021-12-02 17:04] LABS: Appearance Urine Clear; Color Urine Yellow; Glucose Urine UA Negative (Negative); Leukocyte Esterase Urine Negative (Negative); Nitrite Urine Negative (Negative); PH 6.5 (5.0-9.0); UMIC TRIGGER UACC YES; Urine Blood Small (1+) (Negative); Urine Ketones Negative (Negative); Urine Protein Negative (Neg-Trace)
[2021-12-02 17:12] LABS: Bacteria Urine None Seen (None Seen); Hyaline Casts Urine 0-2 /LPF (0-2); WBC Urine 0-5 /HPF (0-5)
== END 2021-12-02 09:09 | disposition home or self-care (01) ==
LOC: HO.LAB 09:08
PROVIDERS: Internal Medicine; Visit Provider Nurse Practitioner Family
DX: N39.0 Urinary tract infection, site not specified (principal)
CPT/HCPCS: 81001; 81003

== ENCOUNTER 2021-12-23 11:55 | Outpatient (REF) | payer OTHER, SELFPAY ==
[2021-12-23 12:38] LABS: Appearance Urine Clear; Color Urine Yellow; Glucose Urine UA Negative (Negative); Leukocyte Esterase Urine Small (1+) (Negative); Nitrite Urine Negative (Negative); PH 8.5 (5.0-9.0); Specific Gravity - Urine 1.015 (1.005-1.025); UMIC TRIGGER UACC YES; Urine Blood Negative (Negative); Urine Ketones Negative (Negative); Urine Protein Negative (Neg-Trace)
[2021-12-23 13:05] LABS: Bacteria Urine None Seen (None Seen); Hyaline Casts Urine 0-2 /LPF (0-2); UACC Culture Trigger YES; WBC Urine 0-5 /HPF (0-5)
[2021-12-23 13:08] LABS: Alanine Aminotransferase 16 U/L (0-31); Albumin Level 4.4 g/dL (3.5-5.0); Alkaline Phosphatase 92 U/L (39-117); Anion Gap 16 (12-20); Aspartate Amino Transferase 19 U/L (5-31); Bilirubin Total 0.7 mg/dL (0.0-1.0); Blood Urea Nitrogen 9 mg/dL (9-16); Calcium 9.6 mg/dL (8.4-10.2); Carbon Dioxide 28 mmol/L (22-29); Chloride 101 mmol/L (96-108); Cholesterol 211 mg/dL; Estimated Glomerular Filt Rate > 60; Glucose Fasting 111 mg/dL (60-99); HDL Cholesterol 60 mg/dL; LDL Cholesterol Calculated 135 mg/dl; Potassium 4.4 mmol/L (3.3-5.1); Sodium 141 mmol/L (135-145); Total Protein 7.7 g/dL (6.5-8.0); Triglycerides 82 mg/dL
== END 2021-12-23 11:56 | disposition home or self-care (01) ==
LOC: HO.LAB 11:55
PROVIDERS: PCP Internal Medicine; Visit Provider Internal Medicine
DX: E78.00 Pure hypercholesterolemia, unspecified (principal); E55.9 Vitamin D deficiency, unspecified; M54.50 Low back pain, unspecified; R30.0 Dysuria
CPT/HCPCS: 36415; 80053; 80061; 81001; 82306; 87086

== ENCOUNTER 2022-04-03 10:23 | Outpatient (REF) | payer OTHER, SELFPAY ==
--- NOTE | ~2022-04-03 | MM_ITS ---
EXAMINATION: MM SCREENING DIGITAL BREAST TOMOSYNTHESIS, BILATERAL CLINICAL INFORMATION: Screening. Asymptomatic. The lifetime risk of breast cancer based on the Tyrer-Cuzick Model is 4%. COMPARISON: Mammography: 03/20/2021, 03/11/2020, 01/02/2019 TECHNIQUE: Digital breast tomosynthesis is performed in both the craniocaudal and mediolateral oblique views along with computer-aided detection (CAD). Synthesized 2D images are generated from the tomosynthesis. FINDINGS: There are scattered areas of fibroglandular density (ACR BI-RADS breast composition Category b). Parenchymal pattern is similar to prior studies. There is no developing density or architectural abnormality. Minor fibronodular densities are stable. No significant mass. The axilla and skin contours are unremarkable. No significant changes. MM/MM tomosynthesis screening BI IMPRESSION: No mammographic evidence of malignancy. ASSESSMENT: BI-RADS 2: Benign RECOMMENDATION: Routine annual mammography screening. This patient's information was entered into a reminder system with a target due date for their next mammogram.
== END 2022-04-03 10:24 | disposition home or self-care (01) ==
LOC: HO.MAMMO 10:23
PROVIDERS: PCP Internal Medicine; Visit Provider Internal Medicine
DX: Z12.31 Encounter for screening mammogram for malignant neoplasm of breast (principal)
CPT/HCPCS: 77063; 77067

== ENCOUNTER 2022-05-20 10:03 | Outpatient (REF) | payer OTHER, SELFPAY ==
[2022-05-22 02:04] LABS: HPV mRNA E6/E7 rflx Not Detected (Not Detected)
== END 2022-05-20 10:04 | disposition home or self-care (01) ==
LOC: HO.LNP 10:03
PROVIDERS: Visit Provider Obstetrics & Gynecology
DX: Z01.419 Encounter for gynecological examination (general) (routine) without abnormal findings (principal)
CPT/HCPCS: 87624; 88142

== ENCOUNTER 2022-11-13 12:21 | Outpatient (AMB) | payer OTHER, SELFPAY ==
[2022-11-13 12:39] VITALS: BP 126/82; PULSE 91; O2SAT 99; BMI 39.4
--- NOTE | 2022-11-13 12:39 | A.OFFPC_ITS ---
Vital Signs 11/13/22 12:39 Height 5 ft Weight 202 lb BMI 39.4 BP 126/82 Blood Pressure Location Lt brachial Position Sitting Pulse 91 Pulse Source Pulse Oximeter Pulse Oximetry (%) 99 Oxygen Delivery Method Room Air Intake Visit Reasons: Body aches [employer] Developer Required: Yes [employer] Crm Developer Language: Whitesmith Name: Ellie Pepe Accompanied by: Self / Same As Patient Allergies Penicillins [PENICILLINS] Allergy (Intermediate, Verified 11/13/22 13:12) RASH/ITCHING Medication List - Last Reconciled 11/13/22 by Nathan Xavier MD acetaminophen ER ([facility] Arthritis Pain) 650 mg PO Q8H PRN 30 days albuterol sulfate 90 mcg/actuation (ProAir HFA) 2 puffs inhalation Q6H PRN 30 days atorvastatin 20 mg PO QPM 90 days buspirone 5 mg PO BID calcium acetate 667 mg PO TID 30 days cholecalciferol (vitamin D3) 25 mcg PO DAILY 90 days clotrimazole-betamethasone 1-0.05 % 1 appl topical BID 5 days cyclobenzaprine 5 mg PO BID PRN ibuprofen 600 mg PO TID PRN 30 days nebulizers (Compact Compressor Nebulizer) As directed sertraline 100 mg PO DAILY trazodone 50 mg PO DAILY Tobacco use date assessed: 11/13/22 Dental Screening Dental Screen Date: 11/13/22 Did you have a dental visit in the last 12 months?: No Did you have a dental problem in the last 6 months where you did not have access to dental care?: No Was dental information given to patient?: Patient has dentist HPI Body aches HPI Details Patient comes in today for her follow up visit - was last seen in December 2021 States that she continues to experience increased pain diffusely Still has increased pain and stiffness over both shoulders often - states that she has a hard time lifting up her arms as a result Has also been experiencing increased pain over her left knee lately and would like to get an x-ray of her knee to look into this Reports (+) back pain as well - chronic She denies any headaches or dizziness Denies any chest pains, no SOB No nausea/vomiting, no abdominal pain No change in bowel habits noted Needs a few of her Rx refilled Has no follow up labs done since December 2021 [facility] Medical History Obesity (BMI 30-39.9) Degenerative joint disease of thoracic spine Depression Primary insomnia Lumbar spondylosis Vitamin D deficiency Impaired fasting glucose Pure hypercholesterolemia Elevated blood pressure reading JENNIFER I (cervical intraepithelial neoplasia I) Physical exam Insomnia Asthma Hyperlipemia Surgical History History of varicose veins Family History Father Cancer Hypertension Bladder cancer Mother Hypertension Diabetes Uterine cancer Maternal Grandmother No problems noted. Sister No problems noted. Social History Housing: Apartment Alcohol intake: never Patient Tobacco Use Status: Never used Tobacco e-Cigarette/Vaping Use: Never Used Second Hand Smoke Exposure: No service: No Current occupational status: disabled Cognitive needs: No Hearing needs: No Vision needs: No Female Reproductive History Menstrual Age of Menarche: 14 Questionnaire PHQ-9 Over the last 2 weeks, how often have you been bothered by any of the following problems? 1. Little interest or pleasure in doing things: several days 2. Feeling down, depressed, or hopeless: several days 3. Trouble falling or staying asleep, or sleeping too much: several days 4. Feeling tired or having little energy: several days 5. Poor appetite or overeating: not at all 6. Feeling bad about yourself - or that you are a failure or have let yourself or your family down: not at all 7. Trouble concentrating on things, such as reading the newspaper or watching television: not at all 8. Moving or speaking so slowly that other people could have noticed. Or the opposite - being so fidgety or restless that you have been moving around a lot more than usual: not at all 9. Thoughts that you would be better off or of hurting yourself in some way: not at all Total score: 4 Depression Screening Interpretation: Positive Depression Screening Follow-up: Existing condition and In treatment 71796 - PHQ-9 Billing: Yes Source: Developed by Drs. Yves Lam, María Alfred, Negrito Mcguire and colleagues, with an educational terri from [employer]. Thrive Questionnaire Date Thrive assessed: 11/13/22 I am a: Patient What is your living situation today?: I have a steady place to live Within the past 12 months, did the food you bought not last and you didn't have the money to get more?: Never true Within the past 12 months, did you worry whether your food would run out before you got money to buy more?: Never true Do you have trouble paying for medicines?: No Do you have trouble getting transportation to medical appointments?: No Do you have trouble paying your heating and electricity bill?: No Do you have trouble taking care of your child, family member or friend?: No Do you have trouble with day-to-day activities such as bathing, preparing meals, shopping, managing finances, etc.?: No Are you currently unemployed and looking for a job?: No Are you interested in more education?: No Please select the resources that you would like help with: None Currently or been in a relationship where the following occur: no concerns r eported AUDIT C Alcohol Use Questionnaire (AUDIT-C) 1. How often do you have a drink containing alcohol?: Never 3. How often do you have six or more drinks on one occasion?: Never Total Score: 0 Score Reviewed/Action Taken: Yes EZ-7 AMB Questionnaire EZ-7 Date EZ - 7 assessed: 11/13/22 Feeling nervous, anxious, or on edge: 0 = Not at all Not being able to stop or control worryin = Not at all Worrying too much about different things: 0 = Not at all Trouble relaxin = Not at all Being so restless that it is hard to sit still: 0 = Not at all Becoming easily annoyed or irritable: 0 = Not at all Feeling afraid as if something awful might happen: 0 = Not at all Total EZ-7 score (0-4 normal; 5-9 mild; 10-14 moderate; 15-21 severe): 0 Source: Developed by Drs. Yves Lam, María Alfred, Negrito Mcguire and colleagues, with an educational terri from [employer]. EZ-7 Assessment Billing EZ-7 Assessment Tool: EZ-7 Assessment 91597 Review of Systems Const Reports fatigue, Denies fever(s) and Denies headache(s) ENT Denies dysphagia, Denies dizziness, Denies otalgia, Denies headache(s), Denies odynophagia and Denies sore throat Card Denies chest pain, Denies palpitations and Denies dyspnea Resp Denies cough and Denies dyspnea GI Denies abdominal pain, Denies constipation, Denies dysphagia, Denies heartburn, Denies diarrhea, Denies nausea, Denies odynophagia and Denies vomiting Denies difficulty voiding, Denies nocturia and Denies dysuria Musc Reports back pain (over the lower back), Reports myalgias (diffuse), Reports arthralgias (multiple joints, including both shoulders and left knee) and Reports stiffness Skin/Breast Denies rash Neuro Denies dizziness and Denies headache(s) Endo Reports fatigue and Denies palpitations Physical exam (Primary Care) Vital Signs: Last Vital Signs Pulse 91 11/13/22 12:39 BP 126/82 11/13/22 12:39 Pulse Ox 99 11/13/22 12:39 Oxygen Delivery Method Room Air 11/13/22 12:39 BMI result Body Mass Index 39.4 Tobacco/Smoking Status: Tobacco use Status Tobacco use date assessed 11/13/22 11/13/22 12:57 Patient Tobacco Use Status Never used Tobacco 11/13/22 12:57 e-Cigarette/Vaping Use Never Used 11/13/22 12:57 PHQ-9: PHQ-9 Score PHQ-9: Total score 4 11/13/22 12:57 Depression Screening Interpretation: Positive Depression Screening Follow-up: Existing condition and In treatment Thrive Assessment: Date of Thrive Assessment Date Thrive assessed 11/13/22 11/13/22 12:57 Currently or been in a relationship where the following occur: no concerns reported Const General: no acute distress and alert HENMT Ears: TM's normal bilaterally and EAC's normal Throat: Yes posterior oropharynx normal and Yes tonsils normal (no TP congestion) Neck Neck: Yes no lymphadenopathy and Yes supple Resp Auscultation: clear to auscultation bilaterally, no rales and no wheezes Cardio Rate: regular rate Rhythm: regular rhythm Heart sounds: no murmurs GI Palpation (GI): Soft to palpation and nontender Auscultation: normal bowel sounds Back/Spine/Pelvis Thoracic/Lumbar Spine: paraspinal muscle tenderness bilaterally in the mid lumbar and in the lower lumbar, thoracic spinal tenderness and lumbar spinal tenderness Skin General skin exam: no rashes or lesions noted Extrem General: Yes no clubbing, cyanosis or edema Right upper extremity: shoulder/upper arm Details: tenderness; no swelling Left upper extremity: shoulder/upper arm Details: tenderness; no swelling Left lower extremity: knee Details: tenderness; no swelling Assessment and Plan Assessment & Plan (1) Pure hypercholesterolemia: Code(s): E78.00 - Pure hypercholesterolemia, unspecified Plan: Has no follow up labs done recently; will have her check her fasting lipids BRO Reinforced low cholesterol diet Continue Atorvastatin 20 gm QD Will recheck her labs again in 4 months for follow up (2) Elevated blood pressure reading: Code(s): R03.0 - Elevated blood-pressure reading, without diagnosis of hypertension Plan: Reinforced low sodium diet Patient is reminded to continue monitoring her blood pressure regularly (3) Impaired fasting glucose: Code(s): R73.01 - Impaired fasting glucose Plan: In-office HgbA1c was at 5.8% and 5.5% when checked a couple of times separately last year Reinforced low calorie diet/exercise as tolerated (4) Vitamin D deficiency: Code(s): E55.9 - Vitamin D deficiency, unspecified Plan: Continue Vitamin D3 1000 units QD (5) Lumbar spondylosis: Code(s): M47.816 - Spondylosis without myelopathy or radiculopathy, lumbar region Plan: Reinforced activity and weight-lifting restrictions X-rays done last year showed only mild lumbar spondylosis Takes OTC Tylenol as needed with (+) relief of her low back pain May need to consider referral again to physical therapy if symptoms persist Advised to apply some warm compress over her lower back PRN Per request, will send for repeat thoracic and lumbar spine x-rays for follow up (6) Degenerative joint disease of thoracic spine: Comment: Thoracic spine x-rays done a couple of days ago showed (+) mild levoscoliosis and mild to moderate multilevel degenerative disc disease Code(s): M47.814 - Spondylosis without myelopathy or radiculopathy, thoracic region Qualifiers: Spinal osteoarthritis complication: without myelopathy or radiculopathy Qualified Code(s): M47.814 - Spondylosis without myelopathy or radiculopathy, thoracic region Plan: Reinforced activity and weight lifting restrictions to minimize aggravating her back pain Will send her for repeat thoracic spine x-rays, per request, for further evaluation (7) Left knee pain: Code(s): M25.562 - Pain in left knee Qualifiers: Chronicity: chronic Qualified Code(s): M25.562 - Pain in left knee; G89.29 - Other chronic pain Plan: Per request, will send her for left knee x-rays for further evaluation (8) Shoulder pain: Code(s): M25.519 - Pain in unspecified shoulder Qualifiers: Chronicity: unspecified Laterality: bilateral Qualified Code(s): M25.511 - Pain in right shoulder; M25.512 - Pain in left shoulder Plan: Will send her for x-rays of both shoulders, per request, for further evaluation Will refer her to rheumatology for further evaluation and management of her diffuse arthralgias and joint pains (9) Primary insomnia: Code(s): F51.01 - Primary insomnia Plan: Sleep hygiene reinforced Continue Trazodone 50 mg daily and OTC Melatonin 10 mg daily at bedtime (10) Depression: Code(s): F32.9 - Major depressive disorder, single episode, unspecified Qualifiers: Depression Type: unspecified Qualified Code(s): F32.9 - Major depressive disorder, single episode, unspecified Plan: Continue Sertraline 100 mg QD Follow-up with Psychiatry as scheduled (11) Obesity (BMI 30-39.9): Code(s): E66.9 - Obesity, unspecified Plan: Reinforced diet/exercise as tolerated/lose weight Plan Follow up in 4 months Orders: Orders Erythrocyte Sedimentation Rate Today M25.50 - Pain in unspecified joint, R76.8 - Other specified abnormal immunological findings in serum Complete Blood Count Auto Diff Today I10 - Essential (primary) hypertension Vitamin D 25-OH Total Today E55.9 - Vitamin D deficiency, unspecified Lipid Panel 4 Months E78.00 - Pure hypercholesterolemia, unspecified UA CC w/rflx Micro + Cult 4 Months R30.0 - Dysuria Complete Blood Count Auto Diff 4 Months I10 - Essential (primary) hypertension XR shoulder LT min 2V Today M25.519 - Pain in unspecified shoulder XR shoulder RT min 2V Today M25.519 - Pain in unspecified shoulder XR lumbar spine 2-3V Today M54.50 - Low back pain, unspecified, M54.9 - Dorsalgia, unspecified XR knee LT 4V Today M25.562 - Pain in left knee C Reactive Protein Today M25.50 - Pain in unspecified joint, R76.8 - Other specified abnormal immunological findings in serum CALEB Reflex Titer and Pattern Today M25.50 - Pain in unspecified joint, R76.8 - Other specified abnormal immunological findings in serum Rheumatoid Factor Today M25.50 - Pain in unspecified joint, R76.8 - Other specified abnormal immunological findings in serum Comprehensive [place]. Panel Fast Today E78.00 - Pure hypercholesterolemia, unspecified Lipid Panel Today E78.00 - Pure hypercholesterolemia, unspecified TSH reflex Free T4 Today E78.00 - Pure hypercholesterolemia, unspecified UA CC w/rflx Micro + Cult Today R30.0 - Dysuria Comprehensive [place]. Panel Fast 4 Months E78.00 - Pure hypercholesterolemia, unspecified XR thoracic spine 3V Today M54.9 - Dorsalgia, unspecified Referrals Rheumatology Referral M25.50 - Pain in unspecified joint Medications: New calcium carbonate 650 mg PO DAILY 30 tabs 5RF Refilled atorvastatin 20 mg PO QPM 90 days 90 tabs 1RF cholecalciferol (vitamin D3) 25 mcg PO DAILY 90 days 90 caps 3RF Coding Level of Care Code Est Pt Level 4 (01630) Diagnoses Pure hypercholesterolemia E78.00 Elevated blood pressure reading R03.0 Impaired fasting glucose R73.01 Vitamin D deficiency E55.9 Lumbar spondylosis M47.816 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.814 Spinal osteoarthritis complication: without myelopathy or radiculopathy Chronic pain of left knee M25.562; G89.29 Chronicity: chronic Bilateral shoulder pain, unspecified chronicity M25.511; M25.512 Chronicity: unspecified Laterality: bilateral Primary insomnia F51.01 Depression, unspecified depression type F32.9 Depression Type: unspecified Obesity (BMI 30-39.9) E66.9 Additional Codes EZ-7 Assessment Billing - EZ-7 Assessment Tool: EZ-7 Assessment 17832 ([id number])
== END 2022-11-13 13:27 | disposition home or self-care (01) ==
PROVIDERS: PCP Internal Medicine; Visit Provider Internal Medicine
DX: E78.00 Pure hypercholesterolemia, unspecified (principal); R03.0 Elevated blood-pressure reading, without diagnosis of hypertension; E55.9 Vitamin D deficiency, unspecified; F32.9 Major depressive disorder, single episode, unspecified; R73.01 Impaired fasting glucose; M47.816 Spondylosis without myelopathy or radiculopathy, lumbar region; M47.814 Spondylosis without myelopathy or radiculopathy, thoracic region; M25.562 Pain in left knee; M25.511 Pain in right shoulder; M25.512 Pain in left shoulder; F51.01 Primary insomnia
CPT/HCPCS: 99214

== ENCOUNTER 2022-11-16 08:22 | Outpatient (REF) | payer OTHER, SELFPAY ==
--- NOTE | ~2022-11-16 | XR_ITS ---
EXAMINATION: XR SHOULDER, RIGHT CLINICAL INFORMATION: Pain. COMPARISON: Radiographs dated 04/24/2020. TECHNIQUE: AP external rotation, Grashey, scapular Y, and axillary views of the right shoulder. FINDINGS: Bony alignment and mineralization are normal. The glenohumeral joint is intact. There is moderate peripheral osteophyte formation of the intra-articular margin of the glenoid. The acromioclavicular coracoclavicular intervals are normal. No fracture or dislocation is seen. There is no soft tissue calcifications or foreign body. No right pneumothorax is seen. XR/XR shoulder LT min 2V IMPRESSION: 1. There is moderate osteoarthritic change of the right glenohumeral joint. 2. No fracture or dislocation is seen. EXAMINATION: XR SHOULDER, LEFT CLINICAL INFORMATION: Pain. COMPARISON: Radiograph dated 03/14/2019. TECHNIQUE: AP external rotation, Grashey, scapular Y, and axillary views of the left shoulder. FINDINGS: Bony alignment and mineralization are normal. The glenohumeral joint is intact. A moderate osteophyte is again seen arising from the inferior articular margin of the glenoid. The acromioclavicular and coracoclavicular intervals are normal. There is cortical irregularity of the greater tuberosity of the proximal right humerus. A tiny calcification is seen on the Grashey view towards the rotator cuff insertion. No fracture or dislocation is seen. There is no foreign body. No left pneumothorax is seen. IMPRESSION: 1. There is moderate osteoarthritic change of the left glenohumeral joint. 2. There is slight calcific tendinitis of the left rotator cuff. 3. No fracture or dislocation is seen.
--- NOTE | ~2022-11-16 | XR_ITS ---
EXAMINATION: XR THORACIC SPINE CLINICAL INFORMATION: Lower back pain. COMPARISON: None available. TECHNIQUE: Frontal and lateral views of the thoracic spine were obtained, together with a swimmer's view. FINDINGS: Vertebral body heights are normal. There is a mild thoracolumbar levoscoliosis. The thoracic disc spaces are relatively well-maintained. No acute fracture or spondylolisthesis is seen. There is multi-level moderate to marked thoracic spondylosis. The posterior elements are intact. The paravertebral soft tissues are unremarkable. XR/XR lumbar spine 2-3V IMPRESSION: 1. The thoracic disc spaces are relatively well-maintained. 2. There is multi-level moderate to marked thoracic spondylosis. 3. There is a mild thoracolumbar levoscoliosis. EXAMINATION: XR LUMBOSACRAL SPINE CLINICAL INFORMATION: Lower back pain. COMPARISON: None available. TECHNIQUE: Three views of the lumbosacral spine. FINDINGS: The vertebral bodies and posterior elements are normal. The disc spaces are preserved and the vertebral alignment is normal. There is mild anterior spondylosis of the L3-L5 upper endplates. The paraspinal soft tissues are normal. A calcified uterine fibroid and a small phlebolith are noted within the left hemipelvis. IMPRESSION: 1. The lumbar disc spaces are well-maintained. 2. There is mild anterior spondylosis of the L3-L5 upper endplates. 3. No acute fracture or spondylolisthesis is seen.
--- NOTE | ~2022-11-16 | XR_ITS ---
EXAMINATION: XR THORACIC SPINE CLINICAL INFORMATION: Lower back pain. COMPARISON: None available. TECHNIQUE: Frontal and lateral views of the thoracic spine were obtained, together with a swimmer's view. FINDINGS: Vertebral body heights are normal. There is a mild thoracolumbar levoscoliosis. The thoracic disc spaces are relatively well-maintained. No acute fracture or spondylolisthesis is seen. There is multi-level moderate to marked thoracic spondylosis. The posterior elements are intact. The paravertebral soft tissues are unremarkable. XR/XR thoracic spine 3V IMPRESSION: 1. The thoracic disc spaces are relatively well-maintained. 2. There is multi-level moderate to marked thoracic spondylosis. 3. There is a mild thoracolumbar levoscoliosis. EXAMINATION: XR LUMBOSACRAL SPINE CLINICAL INFORMATION: Lower back pain. COMPARISON: None available. TECHNIQUE: Three views of the lumbosacral spine. FINDINGS: The vertebral bodies and posterior elements are normal. The disc spaces are preserved and the vertebral alignment is normal. There is mild anterior spondylosis of the L3-L5 upper endplates. The paraspinal soft tissues are normal. A calcified uterine fibroid and a small phlebolith are noted within the left hemipelvis. IMPRESSION: 1. The lumbar disc spaces are well-maintained. 2. There is mild anterior spondylosis of the L3-L5 upper endplates. 3. No acute fracture or spondylolisthesis is seen.
--- NOTE | ~2022-11-16 | XR_ITS ---
EXAMINATION: XR KNEE, LEFT CLINICAL INFORMATION: Pain. COMPARISON: None available. TECHNIQUE: AP, lateral, tunnel, and sunrise views of the left knee. FINDINGS: Bony alignment and mineralization are normal. The lateral and medial joint space compartments are well-maintained. The patellofemoral compartment is well-maintained. Tiny peripheral osteophyte is seen of the superior articular surface of the patella. Enthesophytes arise from the anterior patella at the quadriceps and patellar tendon insertions. No fracture, dislocation or joint effusion is seen. There is no foreign body. XR/XR knee LT 4V IMPRESSION: 1. There is minimal osteoarthritic change of the left patellofemoral compartment. 2. No left knee fracture, dislocation or joint effusion is seen.
--- NOTE | ~2022-11-16 | XR_ITS ---
EXAMINATION: XR SHOULDER, RIGHT CLINICAL INFORMATION: Pain. COMPARISON: Radiographs dated 04/24/2020. TECHNIQUE: AP external rotation, Grashey, scapular Y, and axillary views of the right shoulder. FINDINGS: Bony alignment and mineralization are normal. The glenohumeral joint is intact. There is moderate peripheral osteophyte formation of the intra-articular margin of the glenoid. The acromioclavicular coracoclavicular intervals are normal. No fracture or dislocation is seen. There is no soft tissue calcifications or foreign body. No right pneumothorax is seen. XR/XR shoulder RT min 2V IMPRESSION: 1. There is moderate osteoarthritic change of the right glenohumeral joint. 2. No fracture or dislocation is seen. EXAMINATION: XR SHOULDER, LEFT CLINICAL INFORMATION: Pain. COMPARISON: Radiograph dated 03/14/2019. TECHNIQUE: AP external rotation, Grashey, scapular Y, and axillary views of the left shoulder. FINDINGS: Bony alignment and mineralization are normal. The glenohumeral joint is intact. A moderate osteophyte is again seen arising from the inferior articular margin of the glenoid. The acromioclavicular and coracoclavicular intervals are normal. There is cortical irregularity of the greater tuberosity of the proximal right humerus. A tiny calcification is seen on the Grashey view towards the rotator cuff insertion. No fracture or dislocation is seen. There is no foreign body. No left pneumothorax is seen. IMPRESSION: 1. There is moderate osteoarthritic change of the left glenohumeral joint. 2. There is slight calcific tendinitis of the left rotator cuff. 3. No fracture or dislocation is seen.
[2022-11-16 08:43] LABS: MANUAL DIFF FLAG NO
[2022-11-16 09:42] LABS: Basophils Percent Auto 0.2 % (0-2); Eosinophils Percent Auto 0.3 % (0-4); Hematocrit 37.4 % (37.0-47.0); Hemoglobin 12.3 g/dl (12.0-16.0); Imm Gran Abs Auto 0.02 X10*3/uL (0.00-0.03); Imm Gran Pct Auto 0.2 % (0.0-0.4); Lymphocytes Percent Auto 23.5 % (20-40); Mean Corpuscular HGB Conc 32.9 g/dl (31.0-35.0); Mean Corpuscular Hemoglobin 30.8 pg (27.0-33.0); Mean Corpuscular Volume 93.7 fL (80.0-98.0); Mean Platelet Volume 9.5 fL (9.4-12.3); Monocytes Absolute Auto 0.6 X10*3/uL (0.1-1.2); Monocytes Percent Auto 6.5 % (2-11); Neutrophils Absolute Auto 5.9 x10*3/uL (2.0-8.3); Neutrophils Percent Auto 69.3 % (45-73); Platelet Count 316 X10*3/uL (160-400); Red Blood Count 3.99 X10*6/uL (4.20-5.50); Red Cell Distribution Width 13.1 % (11.0-16.0); White Blood Count 8.6 X10*3/uL (4.8-10.8)
[2022-11-16 09:42] LABS: Appearance Urine Cloudy; Color Urine Yellow; Glucose Urine UA Negative (Negative); Leukocyte Esterase Urine Moderate (2+) (Negative); Nitrite Urine Negative (Negative); PH 6.5 (5.0-9.0); Specific Gravity - Urine 1.015 (1.005-1.025); UMIC TRIGGER UACC YES; Urine Blood Small (1+) (Negative); Urine Ketones Negative (Negative); Urine Protein Trace mg/dL (Neg-Trace)
[2022-11-16 09:46] LABS: Bacteria Urine Trace (None Seen); Hyaline Casts Urine 0-2 /LPF (0-2); UACC Culture Trigger YES
[2022-11-16 09:58] LABS: Estimated Average Glucose 114 mg/dL; Hemoglobin A1c % 5.6 % (<6.0)
[2022-11-16 10:39] LABS: Erythrocyte Sedimentation Rate 26 MM/HR (0-20)
[2022-11-16 11:07] LABS: Rheumatoid Factor < 13.0 IU/mL (<15.0)
[2022-11-16 11:24] LABS: Alanine Aminotransferase 11 U/L (0-31); Albumin Level 4.1 g/dL (3.5-5.0); Alkaline Phosphatase 74 U/L (39-117); Anion Gap 13 (12-20); Aspartate Amino Transferase 15 U/L (5-31); Bilirubin Total 0.6 mg/dL (0.0-1.0); Blood Urea Nitrogen 9 mg/dL (9-16); C Reactive Protein 0.56 mg/dL (< or = 0.50); Carbon Dioxide 26 mmol/L (22-29); Chloride 107 mmol/L (96-108); Cholesterol 188 mg/dL (<200); Estimated Glomerular Filt Rate > 60; Glucose Fasting 118 mg/dL (60-99); HDL Cholesterol 54 mg/dL (>40); LDL Cholesterol Calculated 118 mg/dL (<100); Potassium 3.8 mmol/L (3.3-5.1); Sodium 142 mmol/L (135-145); Total Protein 7.4 g/dL (6.5-8.0); Triglycerides 81 mg/dL (<150)
[2022-11-16 11:30] LABS: TSH reflex Free T4 1.84 uIU/mL (0.32-4.0); Vitamin D 25-OH Total 29.6 ng/mL (>30)
[2022-11-20 09:53] LABS: Anti Nuclear Antibody Screen NEGATIVE (NEGATIVE)
== END 2022-11-16 08:23 | disposition home or self-care (01) ==
LOC: HO.LAB 08:22
PROVIDERS: PCP Internal Medicine; Visit Provider Internal Medicine
DX: E55.9 Vitamin D deficiency, unspecified (principal); R76.8 Other specified abnormal immunological findings in serum; I10 Essential (primary) hypertension; E78.00 Pure hypercholesterolemia, unspecified; E11.9 Type 2 diabetes mellitus without complications; M54.50 Low back pain, unspecified; M54.9 Dorsalgia, unspecified; M25.562 Pain in left knee; M25.511 Pain in right shoulder; M25.512 Pain in left shoulder
CPT/HCPCS: 36415; 72072; 72100; 73030; 73564; 80053; 80061; 81001; 82306; 83036; 84443; 85025; 85652; 86038; 86140; 86431; 87086

== ENCOUNTER 2022-12-17 08:04 | Outpatient (AMB) | payer OTHER, SELFPAY ==
--- NOTE | 2022-12-17 08:12 | A.OFFVIS_ITS ---
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9) Degenerative joint disease of thoracic spine Depression Primary insomnia Lumbar spondylosis Vitamin D deficiency Impaired fasting glucose Pure hypercholesterolemia Elevated blood pressure reading JENNIFER I (cervical intraepithelial neoplasia I) Physical exam Insomnia Asthma Hyperlipemia Surgical History History of varicose veins Family History Father Cancer Hypertension Bladder cancer Mother Hypertension Diabetes Uterine cancer Maternal Grandmother No problems noted. Sister No problems noted. Social History Housing: Apartment Alcohol intake: never Patient Tobacco Use Status: Never used Tobacco e-Cigarette/Vaping Use: Never Used Second Hand Smoke Exposure: No service: No Current occupational status: disabled Cognitive needs: No Hearing needs: No Vision needs: No Female Reproductive History Menstrual Age of Menarche: 14 control method: none Physical Exam Vital Signs: Last Vital Signs BP 140/76 H 12/17/22 08:17 BMI result Body Mass Index 39.2 Chest Breast/axilla inspection: Other (Skin candidiasis bilateral under both breasts) Results AMB Urinalysis, Automated UA Leukoctes 2 Taylor/uL Last Edit by MARGIE Melton on 12/17/22 08:37 UA Nitrite Negative Last Edit by MARGIE Melton on 12/17/22 08:37 UA Urobilinogen 0 mg/dL Last Edit by SRAVANI MeltonA on 12/17/22 08:37 UA Protein 0.5 mg/dL Last Edit by Ramírez Brasher MARGIE on 12/17/22 08:37 UA pH 6 Last Edit by Ramírez Brasher, RMA on 12/17/22 08:37 UA Blood 3 Lm/uL Last Edit by Ramírez Brasher RMGarland on 12/17/22 08:37 UA Specific Osgood 1.020 Last Edit by Ramírez Brasher MARGIE on 12/17/22 08: 37 UA Ketone Negative Last Edit by Ramírez Brasher RMA on 12/17/22 08:37 UA Bilirubin 0 mg/dL Last Edit by Ramírez Brasher SRAVANIA on 12/17/22 08:37 UA Glucose 0 mg/dL Last Edit by Ramírez Brasher MARGIE on 12/17/22 08:37 Assessment & Plan Assessment & Plan (1) UTI (urinary tract infection): Code(s): N39.0 - Urinary tract infection, site not specified Plan: Urine dip showed microscopic hematuria and leukocytes, will send urine for culture treat with Macrobid 100 mg p.o. b.i.d.. Instructions given the patient to call in case symptoms persist , fever above 1.4, flank pain, nausea or vomiting (2) Skin candidiasis: Comment: Under needs both breasts Code(s): B37.2 - Candidiasis of skin and nail Plan: The patient was instructed to keep the area dry, use hair blower after showering, use baby powder without Talc and Desitin cream in addition to applying lotrisone cream BID x5 days Orders: Orders AMB Urinalysis Automated Today Z13.9 - Encounter for screening, unspecified Urine Culture Today R31.9 - Hematuria, unspecified, R80.9 - Proteinuria, unspecified Medications: New clotrimazole-betamethasone 1-0.05 % 1 appl topical BID 45 grams 0RF 5 days nitrofurantoin monohyd/m-cryst 100 mg (Macrobid) 100 mg PO BID 10 caps 0RF 5 days Coding Level of Care Code Est Pt Level 3 (73152) Diagnoses UTI (urinary tract infection) N39.0 Skin candidiasis B37.2
[2022-12-17 08:17] VITALS: BP 140/76; BMI 39.2
== END 2022-12-17 13:25 | disposition home or self-care (01) ==
LOC: HO.HWS 08:04
PROVIDERS: PCP Internal Medicine; Visit Provider Obstetrics & Gynecology
DX: N39.0 Urinary tract infection, site not specified (principal); B37.2 Candidiasis of skin and nail; Z13.9 Encounter for screening, unspecified
CPT/HCPCS: 99213

== ENCOUNTER 2022-12-17 08:04 | Outpatient (REF) | payer OTHER, SELFPAY | END 2022-12-17 08:05 | disposition home or self-care (01) | LOC: HO.LNP 08:04 | PROVIDERS: PCP Internal Medicine; Visit Provider Obstetrics & Gynecology | DX: N39.0 Urinary tract infection, site not specified (principal); B37.2 Candidiasis of skin and nail; R31.9 Hematuria, unspecified; R80.9 Proteinuria, unspecified | CPT/HCPCS: 81003; 87086; 99212 ==

== ENCOUNTER 2023-01-05 09:16 | Outpatient (AMB) | payer OTHER, SELFPAY ==
[2023-01-05 09:17] VITALS: BP 138/76; BMI 39.3
--- NOTE | 2023-01-05 09:17 | A.OFFVIS_ITS ---
Intake Vital Signs 3 01/05/23 09:17 Height 5 ft Weight 201 lb BMI 39.3 BP 138/76 Intake Visit Reasons: Cyst of skin/breast Traffic Control Supervisor Required: Yes Traffic Control Supervisor Language: Turkish Information Interpreted: non-clinical & clinical Accompanied by: Self / Same As Patient Allergies Penicillins [PENICILLINS] Allergy (Intermediate, Verified 01/05/23 09:18) RASH/ITCHING Medication List - Last Reconciled 01/05/23 by Minnie Kimble CNM acetaminophen ER (Mapap Arthritis Pain) 650 mg PO Q8H PRN 30 days albuterol sulfate 90 mcg/actuation (ProAir HFA) 2 puffs inhalation Q6H PRN 30 days atorvastatin 20 mg PO QPM 90 days buspirone 5 mg PO BID calcium carbonate 650 mg PO DAILY cholecalciferol (vitamin D3) 25 mcg PO DAILY 90 days clotrimazole-betamethasone 1-0.05 % 1 appl topical BID 5 days cyclobenzaprine 5 mg PO BID PRN ibuprofen 600 mg PO TID PRN 30 days nebulizers (Compact Compressor Nebulizer) As directed sertraline 100 mg PO DAILY trazodone 50 mg PO DAILY Post menopausal: Yes HPI Cyst of skin/breast 2 HPI0 Details It was here 2 weeks ago and saw Dr. Coronado she had fungal irritation underneath her breasts and he prescribed Lotrisone cream she has been keeping the area dry and she says the fungal irritation is better but about a week ago she started having the swelling that was very painful and itchy between her breasts it appears to be a swollen painful follicular cyst it is inflamed to the side of the breast she says when her breasts which are very heavy pull it hurts even more the main body of the lesion appears to be about 1 cm and is somewhat hardened and painful under the skin and appears that it may soon erupt. The patient has not been squeezing it she has only been placing warm soaks on it but it is getting more painful when her breasts pull it. [facility] Medical History Obesity (BMI 30-39.9) Degenerative joint disease of thoracic spine Depression Primary insomnia Lumbar spondylosis Vitamin D deficiency Impaired fasting glucose Pure hypercholesterolemia Elevated blood pressure reading JENNIFER I (cervical intraepithelial neoplasia I) Physical exam Insomnia Asthma Hyperlipemia Surgical History History of varicose veins Family History Father Cancer Hypertension Bladder cancer Mother Hypertension Diabetes Uterine cancer Maternal Grandmother No problems noted. Sister No problems noted. Social History Housing: Apartment Alcohol intake: never Patient Tobacco Use Status: Never used Tobacco e-Cigarette/Vaping Use: Never Used Second Hand Smoke Exposure: No service: No Current occupational status: disabled Cognitive needs: No Hearing needs: No Vision needs: No Female Reproductive History Menstrual Age of Menarche: 14 Physical Exam Vital Signs: Last Vital Signs BP 138/76 01/05/23 09:17 BMI result Body Mass Index 39.3 Chest Other: Patient has large pendulous breasts the fungal irritation underneath her breasts has improved and is not active there is 1 cm hardened raised swelling that appears cystic. There is an area of inflammation to the right of that on her breast. The entire her area involved is about 3 cm. It is between the breasts. Chest/axillae images: 2 1. follicular cyst. Assessment & Plan Assessment & Plan (1) Inflamed epidermoid cyst of skin: Comment: painful, between breasts, has been using warm soaks Code(s): L72.3 - Sebaceous cyst Plan It was here 2 weeks ago and saw Dr. Coronado she had fungal irritation underneath her breasts and he prescribed Lotrisone cream she has been keeping the area dry and she says the fungal irritation is better but about a week ago she started having the swelling that was very painful and itchy between her breasts it appears to be a swollen painful follicular cyst it is inflamed to the side of the breast she says when her breasts which are very heavy pull it hurts even more the main body of the lesion appears to be about 1 cm and is somewhat hardened and painful under the skin and appears that it may soon erupt. The patient has not been squeezing it she has only been placing warm soaks on it but it is getting more painful when her breasts pull it. I am placing an urgent referral to breast surgery where she hopefully might get evaluated in the next day or so. She may need and a intervention. In the meantime I recommend that she continue exactly what she is doing with the warm soaks and not squeeze it she is sure is me she is not doing that and she is taking very good care. I do not think there is an indication for antibiotics at this stage but I told her she may need them depending on what happens I gave her couple of gauze pads in case it burst and asked her to clean it if that happens with half-strength hydrogen peroxide. Awaiting placement the urgent referral. I asked the patient to wait in the waiting room Orders: Referrals 2 Breast Surgery Referral L72.3 - Sebaceous cyst Coding Level of Care Code Est Pt Level 3 (36661) Diagnoses Inflamed epidermoid cyst of skin L72.3
== END 2023-01-05 09:47 | disposition home or self-care (01) ==
LOC: HO.HWS 09:16
PROVIDERS: PCP Internal Medicine; Visit Provider Advanced Practice Midwife
DX: L72.3 Sebaceous cyst (principal)
CPT/HCPCS: 99213

== ENCOUNTER → 2023-01-05 09:16 | Outpatient (BNVA) | payer OTHER, SELFPAY | PROVIDERS: PCP Internal Medicine; Visit Provider Advanced Practice Midwife | DX: L72.3 Sebaceous cyst (principal) | CPT/HCPCS: 99212 ==

== ENCOUNTER 2023-01-06 11:05 | Outpatient (AMB) | payer OTHER, SELFPAY ==
[2023-01-06 11:07] VITALS: BP 134/76; PULSE 100; BMI 39.4
--- NOTE | 2023-01-06 11:07 | MHC.OFFVIS ---
Intake Vital Signs 01/06/23 11:07 Height 5 ft Weight 202 lb BMI 39.4 BP 134/76 Blood Pressure Location Lt brachial Position Sitting Pulse 100 Intake Visit Reasons: sebaceous cyst Intake Note: This patient presents for an assessment for sebaceous cyst. Patient c/o; reports pain, reports redness, reports cyst mid chest. Health Care Sanitary Technician Required: Yes Health Care Sanitary Technician Language: Floor Finisher Helper Name: Nany Information Interpreted: non-clinical & clinical Accompanied by: Self / Same As Patient Allergies Penicillins [PENICILLINS] Allergy (Intermediate, Verified 01/06/23 11:13) RASH/ITCHING Medication List - Last Reconciled 01/06/23 by Sandeep Jacobs MD acetaminophen ER (Mapap Arthritis Pain) 650 mg PO Q8H PRN 30 days albuterol sulfate 90 mcg/actuation (ProAir HFA) 2 puffs inhalation Q6H PRN 30 days atorvastatin 20 mg PO QPM 90 days buspirone 5 mg PO BID calcium carbonate 650 mg PO DAILY cholecalciferol (vitamin D3) 25 mcg PO DAILY 90 days clotrimazole-betamethasone 1-0.05 % 1 appl topical BID 5 days cyclobenzaprine 5 mg PO BID PRN ibuprofen 600 mg PO TID PRN 30 days nebulizers (Compact Compressor Nebulizer) As directed sertraline 100 mg PO DAILY trazodone 50 mg PO DAILY HPI sebaceous cyst HPI Details 57-year-old female referred for an infected epidermal cyst. She has had an area of pain, swelling tenderness on the lateral aspect near the right breast for over a week. This seems to be worsening. There was note of redness on the area. She denies any recent trauma or bug bite. Denies any drainage. [facility] Medical History (Updated 01/06/23 @ 11:30 by Sandeep Jacobs MD) Chest wall abscess Obesity (BMI 30-39.9) Degenerative joint disease of thoracic spine Depression Primary insomnia Lumbar spondylosis Vitamin D deficiency Impaired fasting glucose Pure hypercholesterolemia Elevated blood pressure reading JENNIFER I (cervical intraepithelial neoplasia I) Physical exam Insomnia Asthma Hyperlipemia Surgical History History of varicose veins Family History Father Cancer Hypertension Bladder cancer Mother Hypertension Diabetes Uterine cancer Maternal Grandmother No problems noted. Sister No problems noted. Social History Housing: Apartment Alcohol intake: never Patient Tobacco Use Status: Never used Tobacco e-Cigarette/Vaping Use: Never Used Second Hand Smoke Exposure: No service: No Current occupational status: disabled Cognitive needs: No Hearing needs: No Vision needs: No Female Reproductive History Menstrual Age of Menarche: 14 Review of Systems Const Denies chills and Denies fever(s) Card Denies chest pain, Denies dyspnea and Denies dyspnea on exertion Resp Denies cough, Denies dyspnea and Denies dyspnea on exertion GI Denies hematochezia and Denies change in bowel habits Denies hematuria Musc Denies back pain and Denies limited range of motion Neuro Denies focal weakness and Denies convulsions Psych Denies depression and Denies mood swings Physical Exam Const Other: Obese General: comfortable and no acute distress Orientation/consciousness: patient oriented x3 Neck Neck: Yes no lymphadenopathy Chest Other: On the right sternal area near the breast was note of an induration with central fluctuance about 1 cm in diameter, and redness consistent with an abscess likely from an infected epidermal cyst Resp Auscultation: clear to auscultation bilaterally Cardio Rhythm: regular rhythm GI Palpation (GI): Soft to palpation, nontender and no guarding Neuro General: patient oriented x3 Office Procedures I&D Drain Details: She was placed supine. The area of the abscess on the sternum to the right was prepped and draped. This was about 1 cm in diameter. Lidocaine 1% was used for local anesthesia. I made an incision on the skin overlying this abscess using blade 11. This carried down through the full-thickness the skin all the way to the subcutaneous layer until an abscess cavity was entered. This was drained. I bluntly debrided the abscess cavity with a Q-tip. Once the abscess cavity was completely emptied, I applied dressings. She tolerated procedure well. There were no immediate complications. [id number] of Skin Abscess, complex All charges added?: Procedure code (CPT) selection complete Assessment & Plan Assessment & Plan (1) Chest wall abscess: Code(s): L02.213 - Cutaneous abscess of chest wall Plan: She has an abscess on the sternum likely from an infected epidermal cyst. I told her it will be best to proceed with I&D. I explained the technique of I&D under local anesthesia. I discussed the risks, benefits, and alternatives and she had given verbal consent . I&D was done under local anesthesia here in the office. She tolerated procedure well. There were no immediate complications. I explained her proper wound care. She was instructed to see me in the office down the line if she notices not improvement or worsening. She can take Tylenol and ibuprofen at home. Plan I explained the technique of excision of the epidermal cyst. I reviewed the risks including but not limited to bleeding, infections, poor healing, postop pain, as well as the benefits and alternatives. Coding Level of Care Code New Pt Level 3 (57388) Diagnoses Chest wall abscess L02.213 CPT Codes I&D Drain - Drain 2: [id number] of Skin Abscess, complex ([id number])
== END 2023-01-06 11:32 | disposition home or self-care (01) ==
PROVIDERS: PCP Internal Medicine; Visit Provider Surgery
DX: L02.213 Cutaneous abscess of chest wall (principal)
CPT/HCPCS: 10060; 99203

== ENCOUNTER → 2023-01-06 11:05 | Outpatient (BNVA) | payer OTHER, SELFPAY | PROVIDERS: PCP Internal Medicine; Visit Provider Surgery | DX: L02.213 Cutaneous abscess of chest wall (principal) | CPT/HCPCS: 10060; 99202 ==

== ENCOUNTER 2023-03-17 10:20 | Outpatient (AMB) | payer OTHER, SELFPAY ==
[2023-03-17 10:34] VITALS: BP 104/80; PULSE 80; O2SAT 98; BMI 38.9
--- NOTE | 2023-03-17 10:34 | MHC.PC.OV ---
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 Accompanied by: Self / Same As Patient Allergies Penicillins [PENICILLINS] Allergy (Intermediate, Verified 03/17/23 11:20) RASH/ITCHING Medication List - Last Reconciled 03/17/23 by Nathan Xavier MD acetaminophen ER (Mapap Arthritis Pain) 650 mg PO Q8H PRN 30 days albuterol sulfate 90 mcg/actuation (ProAir HFA) 2 puffs inhalation Q6H PRN 30 days atorvastatin 20 mg PO QPM 90 days buspirone 5 mg PO BID calcium carbonate 650 mg PO DAILY cholecalciferol (vitamin D3) 25 mcg PO DAILY 90 days clotrimazole-betamethasone 1-0.05 % 1 appl topical BID 5 days cyclobenzaprine 5 mg PO BID PRN ibuprofen 600 mg PO TID PRN 30 days nebulizers (Compact Compressor Nebulizer) As directed sertraline 100 mg PO DAILY trazodone 50 mg PO DAILY Tobacco use date assessed: 03/17/23 Dental Screening Dental Screen Date: 03/17/23 Did you have a dental visit in the last 12 months?: No Did you have a dental problem in the last 6 months where you did not have access to dental care?: No Was dental information given to patient?: Patient has dentist HPI 4mth follow up HPI Details Patient comes in today for her follow up visit States that she feels okay Still has recurrent back pain and on and off sharp pains over her sides, along the lower margin of her rib cage bilaterally Recalls that she was referred to physical therapy over a year ago for the same complaints but states that she never received a call from physical therapy and was never scheduled for any PT visits She was referred to rheumatology previously and is scheduled to see them in a few days on 03/19/2023 She denies any headaches or dizziness Denies any chest pains, no SOB No nausea/vomiting, no abdominal pain No change in bowel habits noted Would like to know how she did on her labs and x-rays done AFTER her last visit; did not get any other follow up labs done recently as she states that she was not aware that she had to get some more labs done prior to her appt today Needs a few of her Rx refilled today Would also like to get her flu shot today PFSH Medical History Chest wall abscess Obesity (BMI 30-39.9) Degenerative joint disease of thoracic spine Depression Primary insomnia Lumbar spondylosis Vitamin D deficiency Impaired fasting glucose Pure hypercholesterolemia Elevated blood pressure reading JENNIFER I (cervical intraepithelial neoplasia I) Physical exam Insomnia Asthma Hyperlipemia Surgical History History of varicose veins Family History Father Cancer Hypertension Bladder cancer Mother Hypertension Diabetes Uterine cancer Maternal Grandmother No problems noted. Sister No problems noted. Social History Housing: Apartment Alcohol intake: never Patient Tobacco Use Status: Never used Tobacco e-Cigarette/Vaping Use: Never Used Second Hand Smoke Exposure: No service: No Current occupational status: disabled Cognitive needs: No Hearing needs: No Vision needs: No Female Reproductive History Menstrual Age of Menarche: 14 Questionnaire PHQ-9 Over the last 2 weeks, how often have you been bothered by any of the following problems? 1. Little interest or pleasure in doing things: several days 2. Feeling down, depressed, or hopeless: several days 3. Trouble falling or staying asleep, or sleeping too much: several days 4. Feeling tired or having little energy: several days 5. Poor appetite or overeating: not at all 6. Feeling bad about yourself - or that you are a failure or have let yourself or your family down: not at all 7. Trouble concentrating on things, such as reading the newspaper or watching television: not at all 8. Moving or speaking so slowly that other people could have noticed. Or the opposite - being so fidgety or restless that you have been moving around a lot more than usual: not at all 9. Thoughts that you would be better off or of hurting yourself in some way: not at all Total score: 4 Depression Screening Interpretation: Positive Depression Screening Follow-up: Existing condition and In treatment Depression Screening Done: Yes 99111 - PHQ-9 Billing: Yes Source: Developed by Drs. Yves Lam, María Alfred, Negrito Mcguire and colleagues, with an educational terri from [employer]. Thrive Questionnaire Date Thrive assessed: 03/17/23 I am a: Patient What is your living situation today?: I have a steady place to live Within the past 12 months, did the food you bought not last and you didn't have the money to get more?: Never true Within the past 12 months, did you worry whether your food would run out before you got money to buy more?: Never true Do you have trouble paying for medicines?: No Do you have trouble getting transportation to medical appointments?: No Do you have trouble paying your heating and electricity bill?: No Do you have trouble taking care of your child, family member or friend?: No Do you have trouble with day-to-day activities such as bathing, preparing meals, shopping, managing finances, etc.?: No Are you currently unemployed and looking for a job?: No Are you interested in more education?: No Please select the resources that you would like help with: None Currently or been in a relationship where the following occur: no concerns reported AUDIT C Alcohol Use Questionnaire (AUDIT-C) 1. How often do you have a drink containing alcohol?: Never 3. How often do you have six or more drinks on one occasion?: Never Total Score: 0 Score Reviewed/Action Taken: Yes EZ-7 AMB Questionnaire EZ-7 Date EZ - 7 assessed: 03/17/23 Feeling nervous, anxious, or on edge: 0 = Not at all Not being able to stop or control worryin = Not at all Worrying too much about different things: 0 = Not at all Trouble relaxin = Not at all Being so restless that it is hard to sit still: 0 = Not at all Becoming easily annoyed or irritable: 0 = Not at all Feeling afraid as if something awful might happen: 0 = Not at all Total EZ-7 score (0-4 normal; 5-9 mild; 10-14 moderate; 15-21 severe): 0 Source: Developed by María Cruz.W. Tima, Negrito Mcguire and colleagues, with an educational terri from [employer]. EZ-7 Assessment Billing EZ-7 Assessment Tool: EZ-7 Assessment 34364 Review of Systems Const Denies chills, Reports fatigue, Denies fever(s) and Denies headache(s) ENT Denies dysphagia, Denies dizziness, Denies otalgia, Denies headache(s), Denies neck pain, Denies odynophagia and Denies sore throat Card Denies chest pain, Denies palpitations and Denies dyspnea Resp Denies chest congestion, Denies cough and Denies dyspnea GI Denies abdominal pain, Denies constipation, Denies dysphagia, Denies heartburn, Denies diarrhea, Denies nausea, Denies odynophagia and Denies vomiting Denies difficulty voiding, Denies nocturia and Denies dysuria Musc Reports back pain (over the mid to lower back), Reports myalgias (diffuse), Reports arthralgias (multiple joints, including both shoulders and the left knee), Denies neck pain and Reports stiffness Skin/Breast Denies rash Neuro Denies dizziness and Denies headache(s) Endo Reports fatigue and Denies palpitations Physical exam (Primary Care) Vital Signs: Last Vital Signs Pulse 80 03/17/23 10:34 BP 104/80 03/17/23 10:34 Pulse Ox 98 03/17/23 10:34 Oxygen Delivery Method Room Air 03/17/23 10:34 BMI result Body Mass Index 38.9 Tobacco/Smoking Status: Tobacco use Status Tobacco use date assessed 03/17/23 03/17/23 10:39 Patient Tobacco Use Status Never used Tobacco 03/17/23 10:39 e-Cigarette/Vaping Use Never Used 03/17/23 10:39 PHQ-9: PHQ-9 Score PHQ-9: Total score 4 03/17/23 11:21 Depression Screening Interpretation: Positive Depression Screening Follow-up: Existing condition and In treatment Thrive Assessment: Date of Thrive Assessment Date Thrive assessed 03/17/23 03/17/23 10:39 Currently or been in a relationship where the following occur: no concerns reported Const General: no acute distress and alert HENMT Ears: TM's normal bilaterally and EAC's normal Throat: Yes posterior oropharynx normal and Yes tonsils normal (no TP congestion) Neck Neck: Yes no lymphadenopathy and Yes supple Resp Other: (+) tenderness over the lower margins of the rib cage bilaterally Auscultation: clear to auscultation bilaterally, no rales and no wheezes Cardio Rate: regular rate Rhythm: regular rhythm Heart sounds: no murmurs GI Palpation (GI): Soft to palpation and nontender Auscultation: normal bowel sounds Back/Spine/Pelvis Thoracic/Lumbar Spine: paraspinal muscle tenderness bilaterally in the mid thoracic, in the lower thoracic, in the mid lumbar and in the lower lumbar, thoracic spinal tenderness and lumbar spinal tenderness Skin Rashes: no rashes Extrem General: Yes no clubbing, cyanosis or edema Right upper extremity: shoulder/upper arm Details: tenderness; no swelling Left upper extremity: shoulder/upper arm Details: tenderness; no swelling Left lower extremity: knee Details: tenderness; no swelling Office Procedures Flu Questionnaire Does the patient have a severe egg allergy?: No Does the patient have severe life threatening allergies?: No Does the patient have a fever or illness today?: No Has the patient ever had Guillain-Tillson Syndrome?: No Has the patient ever had any past reaction to a flu shot?: No Immunizations flu vacc [id number] 6mos up(PF) 60 mcg(15 mcgx4)/0.5 mL IM syringe Performing Provider: Nathan Xavier MD Performing Location: [facility] Administered by: Maico Nunez on 03/17/23 11:35 Dose Route Admin Location Dispensed Lot Number Expiration Date N[employer] Super[employer] 0.5 mL IM Left Deltoid 0.5 mL [id number] 09/05/23 06512-606-01 [email or web address] VIS Given Date VIS Provided VIS Publication Date 03/17/23 Single Vaccine 20 Eligibility Eligibility Date Funding Source Not [facility] Eligible 03/17/23 Private Results Reviewed Results Reviewed: Laboratory Tests 11/16/22 11/16/22 11/16/22 08:35 08:35 08:42 WBC 8.6 Hgb 12.3 Hct 37.4 Plt Count 316 ESR 26 H Sodium 142 Potassium 3.8 Creatinine 0.71 Estimated GFR > 60 Fasting Glucose 118 H Hemoglobin A1c % 5.6 Calcium 10.0 AST 15 ALT C-Reactive Protein Triglycerides Cholesterol 188 LDL Cholesterol, Calc 118 H HDL Cholesterol 54 25-OH Vitamin D Total 29.6 TSH 1.84 Ur Specific [place] 1.015 Urine Protein Trace Urine Glucose (UA) Negative Urine Blood Small (1+) H Urine Nitrite Negative Ur Leukocyte Esterase Moderate (2+) H Rheumatoid Factor CALEB Screen 11/16/22 11/16/22 08:42 08:42 WBC Hgb Hct Plt Count ESR Sodium Potassium Creatinine Estimated GFR Fasting Glucose Hemoglobin A1c % Calcium AST ALT 11 C-Reactive Protein 0.56 H Triglycerides 81 Cholesterol LDL Cholesterol, Calc HDL Cholesterol 25-OH Vitamin D Total TSH Ur Specific [place] Urine Protein Urine Glucose (UA) Urine Blood Urine Nitrite Ur Leukocyte Esterase Rheumatoid Factor < 13.0 CALEB Screen NEGATIVE Assessment and Plan Assessment & Plan (1) Pure hypercholesterolemia: Code(s): E78.00 - Pure hypercholesterolemia, unspecified Plan: Patient did not get her follow up labs done recently although she did go to the lab after her last visit Per request, results of her labs done back in November 2022 reviewed and discussed with patient - advised that her LDL cholesterol level has improved from a year ago Reinforced low cholesterol diet Continue Atorvastatin 20 gm QD Will have patient recheck her labs and fasting lipids in 4 months for follow up (2) Elevated blood pressure reading: Code(s): R03.0 - Elevated blood-pressure reading, without diagnosis of hypertension Plan: Reinforced low sodium diet Patient is reminded to continue monitoring her blood pressure regularly (3) Impaired fasting glucose: Code(s): R73.01 - Impaired fasting glucose Plan: In-office HgbA1c was at 5.8% and 5.5% when checked a couple of times separately last year; HgbA1c was also normal at 5.6% on her labs done back in November 2022 Reinforced low calorie diet/exercise as tolerated (4) Vitamin D deficiency: Code(s): E55.9 - Vitamin D deficiency, unspecified Plan: Continue Vitamin D3 1000 units QD (5) Lumbar spondylosis: Code(s): M47.816 - Spondylosis without myelopathy or radiculopathy, lumbar region Plan: Reinforced activity and weight-lifting restrictions X-rays done a couple of years ago showed (+) mild lumbar spondylosis; repeat x-rays done in November 2022 revealed (+) mild to moderate thoracolumbar spondylosis Per request, will refer her to physical therapy to help with her symptoms Patient takes OTC Tylenol as needed with (+) relief of her low back pain; may also continue with warm compresses PRN for symptomatic relief (6) Degenerative joint disease of thoracic spine: Comment: Thoracic spine x-rays done a couple of days ago showed (+) mild levoscoliosis and mild to moderate multilevel degenerative disc disease Code(s): M47.814 - Spondylosis without myelopathy or radiculopathy, thoracic region Qualifiers: Spinal osteoarthritis complication: without myelopathy or radiculopathy Qualified Code(s): M47.814 - Spondylosis without myelopathy or radiculopathy, thoracic region Plan: Reinforced activity and weight lifting restrictions to minimize aggravating her back pain Repeat thoracic spine x-rays done last November 2022 revealed (+) thoracolumbar spondylosis She is being referred to physical therapy, per her request (7) Left knee pain: Code(s): M25.562 - Pain in left knee Qualifiers: Chronicity: chronic Qualified Code(s): M25.562 - Pain in left knee; G89.29 - Other chronic pain Plan: Left knee x-rays done last November 2022 revealed (+) OA changes Advised that we can refer her to orthopedics if her knee symptoms get worse - patient will call for referral when appropriate (8) Shoulder pain: Code(s): M25.519 - Pain in unspecified shoulder Qualifiers: Chronicity: unspecified Laterality: bilateral Qualified Code(s): M25.511 - Pain in right shoulder; M25.512 - Pain in left shoulder Plan: X-rays of both shoulders done last November 2022 also revealed (+) OA changes She has been referred to rheumatology for further evaluation and management of her diffuse arthralgias and joint pains and she is now scheduled to see rheumatology in a few days on 03/19/2023 (9) Primary insomnia: Code(s): F51.01 - Primary insomnia Plan: Sleep hygiene reinforced Continue Trazodone 50 mg daily and OTC Melatonin 10 mg daily at bedtime (10) Depression: Code(s): F32.9 - Major depressive disorder, single episode, unspecified Qualifiers: Depression Type: unspecified Qualified Code(s): F32.9 - Major depressive disorder, single episode, unspecified Plan: Continue Sertraline 100 mg QD Follow-up with Psychiatry as scheduled (11) Obesity (BMI 30-39.9): Code(s): E66.9 - Obesity, unspecified Plan: Reinforced diet/exercise as tolerated/lose weight Plan Flu vaccine given today Follow up in 4 months Orders: Orders PT Evaluation and Treatment Today M54.6 - Pain in thoracic spine, M54.9 - Dorsalgia, unspecified Comprehensive [place]. Panel Fast 4 Months E78.00 - Pure hypercholesterolemia, unspecified TSH reflex Free T4 4 Months E78.00 - Pure hypercholesterolemia, unspecified UA CC w/rflx Micro + Cult 4 Months R30.0 - Dysuria Vitamin D 25-OH Total 4 Months E55.9 - Vitamin D deficiency, unspecified Complete Blood Count Auto Diff 4 Months I10 - Essential (primary) hypertension Lipid Panel 4 Months E78.00 - Pure hypercholesterolemia, unspecified Influenza [id number] Immunization Today Z23 - Encounter for immunization Medications: Refilled ibuprofen Take with food 600 mg PO TID 30 days PRN 90 tabs 0RF pain cholecalciferol (vitamin D3) 25 mcg PO DAILY 90 days 90 caps 3RF atorvastatin 20 mg PO QPM 90 days 90 tabs 1RF Coding Level of Care Code Est Pt Level 4 (50334) Diagnoses Pure hypercholesterolemia E78.00 Elevated blood pressure reading R03.0 Impaired fasting glucose R73.01 Vitamin D deficiency E55.9 Lumbar spondylosis M47.816 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.814 Spinal osteoarthritis complication: without myelopathy or radiculopathy Chronic pain of left knee M25.562; G89.29 Chronicity: chronic Bilateral shoulder pain, unspecified chronicity M25.511; M25.512 Chronicity: unspecified Laterality: bilateral Primary insomnia F51.01 Depression, unspecified depression type F32.9 Depression Type: unspecified Obesity (BMI 30-39.9) E66.9 Additional Codes EZ-7 Assessment Billing - EZ-7 Assessment Tool: EZ-7 Assessment [id number] ([id number])
== END 2023-03-17 11:35 | disposition home or self-care (01) ==
PROVIDERS: PCP Internal Medicine; Visit Provider Internal Medicine
DX: Z23 Encounter for immunization (principal)
CPT/HCPCS: 90471; 90686; 99214

== ENCOUNTER 2023-03-19 09:27 | Outpatient (AMB) | payer OTHER, SELFPAY ==
--- NOTE | 2023-03-19 09:40 | MHC.OFFVIS ---
Intake Vital Signs 03/19/23 09:41 Height 5 ft Weight 199 lb 8.293 oz BMI 39.0 BP 118/70 Blood Pressure Location Rt brachial Position Sitting Pulse 82 Pulse Source Pulse Oximeter Temp 97.0 F Temp Source Skin Pulse Oximetry (%) 99 Oxygen Delivery Method Room Air Intake Visit Reasons: Joint Pain Intake Note: New patient, internally referred by PCP, presents to office today for joint pain. Previously seen at [facility] Rheumatology. C/o pain in shoulders, back, hips, and knees. Furniture Packer Required: Yes Furniture Packer Name: David [id number] Information Interpreted: clinical only Accompanied by: Self / Same As Patient Allergies Penicillins [PENICILLINS] Allergy (Intermediate, Verified 03/19/23 09:44) RASH/ITCHING HPI HPI Comments History of Present Illness Details Ms. Boyle 57 yoF presents today for evaluation of joint pain. She is a former patient and was last seen in the office June 2022. Today she registers similar concerns for shoulder, knee and foot pain. She reports her PCP told her to go back to the embossograph operator to discuss the joint pain treatment. She currently takes Ibuprofen and Tylenol arthritis which provides relief for 4 hours but the pain returns. The main area today is her left shoulder. She is also scheduled to do PT per PCP. She has also done xrays of shoulder, knees and lower back. She has not had any joint swelling or redness. She does have stiffness that comes and goes all day. [facility] Medical History (Updated 03/19/23 @ 10:58 by FRANCIS Beebe-) Bilateral primary osteoarthritis of knee Osteoarthritis of shoulders, bilateral Calcific tendinitis of left shoulder region Chest wall abscess Obesity (BMI 30-39.9) Degenerative joint disease of thoracic spine Depression Primary insomnia Lumbar spondylosis Vitamin D deficiency Impaired fasting glucose Pure hypercholesterolemia Elevated blood pressure reading JENNIFER I (cervical intraepithelial neoplasia I) Physical exam Insomnia Asthma Hyperlipemia Surgical History History of varicose veins Family History Father Cancer Hypertension Bladder cancer Mother Hypertension Diabetes Uterine cancer Maternal Grandmother No problems noted. Sister No problems noted. Social History Household Members Other:: Son Housing: Apartment Alcohol intake: never Patient Tobacco Use Status: Never used Tobacco e-Cigarette/Vaping Use: Never Used Second Hand Smoke Exposure: No service: No Current occupational status: disabled Cognitive needs: No Hearing needs: No Vision needs: No Female Reproductive History Menstrual Age of Menarche: 14 Review of Systems Const All systems reviewed & are unremarkable except as noted in HPI and below Physical Exam Vital Signs: Last Vital Signs Temp 97.0 F 03/19/23 09:41 Pulse 82 03/19/23 09:41 BP 118/70 03/19/23 09:41 Pulse Ox 99 03/19/23 09:41 Oxygen Delivery Method Room Air 03/19/23 09:41 BMI result Body Mass Index 39.0 APPEARANCE: Patient in no acute distress EYES no redness, pupils equal and reactive to light, eyelids normal EARS:? External ear normal, canal clear and tympanic membrane normal. NOSE/SINUS:? Airflow through both nares, no nasal discharge, no bleeding THROAT:? Oral mucosa moist, no ulcerations NECK:? No thyromegaly or masses, no adenopathy, trachea midline. HEART:? Regular rhythm, S1-S2 heard, no murmurs, rubs or gallops. LUNG:? Clear to percussion and auscultation ABD:? Normal bowel sounds, no organomegaly, masses or tenderness. MUSCULOSKELETAL:? No edema, no calf tenderness, normal peripheral pulses. Grossly normal range of motion in joints throughout the body. No deformity or other signs of injury. NEURO:? Oriented and alert x3.? No focal weakness.? Reflexes symmetric.? Gait normal. SKIN:? There are no skin lesions evident. No objective signs of Raynaud's phenomenon. JOINT EXAM: Cervical Spine:.? Full range of motion without pain; no tenderness. Thoracic Spine:.? No scoliosis.? No tenderness on palpation. Lumbar Spine:.? Alignment normal.? Full range of motion without pain, mild tenderness with palpation Chest Wall:.? No tenderness, swelling, increased warmth or erythema. Hands:.? Normal pain-free range of motion without tenderness, swelling, increased warmth or erythema. Able to make a full fist and has a good electronic imaging system operator strength. Wrists:.? Normal pain-free range of motion without tenderness, swelling, increased warmth or erythema. Elbows:. Normal pain-free range of motion without tenderness, swelling, increased warmth or erythema. Shoulders:.?? RIGHT:Full range of motion without pain. No tenderness, weakness, swelling, increased warmth or erythema. LEFT: decreased range of motion with pain at 110 degrees. tenderness, mild weakness, no swelling, increased warmth or erythema. Hips:.? Full range of motion without pain. Hip bursa:.? No tenderness. Knees:.?? Normal pain-free range of motion without tenderness, swelling, increased warmth or erythema.? There is no effusion or crepitation Ankles:.? Normal pain-free range of motion without tenderness, swelling, increased warmth or erythema. Feet:.? Normal pain-free range of motion without tenderness, swelling, increased warmth or erythema. Office Procedures Joint Injection/Drain Joint Injection/Drain Primary Site: left shoulder Prep: site was prepped using aseptic technique Injected: 80 mg of, Kenalog, with 1 mL of and 1% plain lidocaine Approach Used: anterolateral Procedure: The patient tolerated the procedure well and but had some pain with the injection Coding 77177 - Large joint Procedure code (CPT) selection complete Results Reviewed Results Reviewed: XR SHOULDER, LEFT CLINICAL INFORMATION: Pain. COMPARISON: Radiograph dated 03/14/2019. 1. There is moderate osteoarthritic change of the left glenohumeral joint. 2. There is slight calcific tendinitis of the left rotator cuff. 3. No fracture or dislocation is seen. XR/XR shoulder LT min 2V IMPRESSION: EXAMINATION: XR SHOULDER, RIGHT CLINICAL INFORMATION: Pain. 1. There is moderate osteoarthritic change of the right glenohumeral joint. 2. No fracture or dislocation is seen. XR/XR knee LT 4V IMPRESSION: 1. There is minimal osteoarthritic change of the left patellofemoral compartment. 2. No left knee fracture, dislocation or joint effusion is seen. EXAMINATION: XR THORACIC SPINE CLINICAL INFORMATION: Lower back pain. COMPARISON: None available. TECHNIQUE: Frontal and lateral views of the thoracic spine were obtained, together with a swimmer's view. FINDINGS: Vertebral body heights are normal. There is a mild thoracolumbar levoscoliosis. The thoracic disc spaces are relatively well-maintained. No acute fracture or spondylolisthesis is seen. There is multi-level moderate to marked thoracic spondylosis. The posterior elements are intact. The paravertebral soft tissues are unremarkable. XR/XR lumbar spine 2-3V IMPRESSION: 1. The thoracic disc spaces are relatively well-maintained. 2. There is multi-level moderate to marked thoracic spondylosis. 3. There is a mild thoracolumbar levoscoliosis. EXAMINATION: XR LUMBOSACRAL SPINE CLINICAL INFORMATION: Lower back pain. COMPARISON: None available. TECHNIQUE: Three views of the lumbosacral spine. FINDINGS: The vertebral bodies and posterior elements are normal. The disc spaces are preserved and the vertebral alignment is normal. There is mild anterior spondylosis of the L3-L5 upper endplates. The paraspinal soft tissues are normal. A calcified uterine fibroid and a small phlebolith are noted within the left hemipelvis. IMPRESSION: 1. The lumbar disc spaces are well-maintained. 2. There is mild anterior spondylosis of the L3-L5 upper endplates. 3. No acute fracture or spondylolisthesis is seen. Assessment & Plan Assessment & Plan (1) Shoulder pain: Code(s): M25.519 - Pain in unspecified shoulder Qualifiers: Chronicity: unspecified Laterality: bilateral Qualified Code(s): M25.511 - Pain in right shoulder; M25.512 - Pain in left shoulder (2) Calcific tendinitis of left shoulder region: Code(s): M75.32 - Calcific tendinitis of left shoulder (3) Osteoarthritis of shoulders, bilateral: Code(s): M19.011 - Primary osteoarthritis, right shoulder; M19.012 - Primary osteoarthritis, left shoulder Qualifiers: Osteoarthritis type: primary Qualified Code(s): M19.011 - Primary osteoarthritis, right shoulder; M19.012 - Primary osteoarthritis, left shoulder (4) Bilateral primary osteoarthritis of knee: Code(s): M17.0 - Bilateral primary osteoarthritis of knee Plan #Bilateral Shoulder OA/Left Shoulder Calcific Tendinitis: Ms. Hanna 57 yoF returns for evaluation of joint pain after a long absent. Her PCP ordered Xrays which shows OA of both shoulders with calcific tendonitis, with more calcification on the left. She is having difficulty today lifting the left arm. I think it is reasonable to give a corticosteroid injection today. I informed patient of precautions to take in the next 2 to 3 days with her shoulder and also demonstrated wall exercises she can do subsequently. She will hold starting PT for now. Patient would also benefit from wearing sports bra with wider shoulder straps. Her breasts are ample and given the bra impression on her shoulders, I suspect this may also be contributing to the shoulder discomfort. #Bilateral Knee OA: I think the knee pain is from the OA but also deconditioning. She has weak quad muscles and weak muscles causes more pressure on the joints. She denies red, warm swollen joints and the knee pain happes when she walks. Her Rheumatology serology for is negative for RF/CCP, and CALEB. Her CRP/ESR baseline mild elevation. She will continue with Ibuprofen 600 mg 1 tablet PO Q4 prn and Acetaminophen 650mg -1-2 tablets q12 hours PRN pain. Return to clinic 2 months I have spent 35 minutes reviewing chart and imaging, evaluating patient, and documenting. Orders: Orders Erythrocyte Sedimentation Rate Today M25.519 - Pain in unspecified shoulder C Reactive Protein Today M25.519 - Pain in unspecified shoulder AMB Joint Injection/Aspiration Today M75.32 - Calcific tendinitis of left shoulder Medications: Changed From acetaminophen ER ([facility] Arthritis Pain) 650 mg PO Q8H 30 days PRN 90 tabs 3RF pain To acetaminophen ER 650 mg PO Q8H 30 days PRN 90 tabs 3RF pain Coding Level of Care Code Tele New Pt Level 3 (72052) Diagnoses Bilateral shoulder pain, unspecified chronicity M25.511; M25.512 Chronicity: unspecified Laterality: bilateral Calcific tendinitis of left shoulder region M75.32 Primary osteoarthritis of both shoulders M19.011; M19.012 Osteoarthritis type: primary Bilateral primary osteoarthritis of knee M17.0 CPT Codes Coding - 54263 Large joint: 77737 - Large joint ([id number])
[2023-03-19 09:41] VITALS: BP 118/70; PULSE 82; TEMP 36.1; O2SAT 99; BMI 39.0
== END 2023-03-19 10:33 | disposition home or self-care (01) ==
PROVIDERS: PCP Internal Medicine; Visit Provider Nurse Practitioner Family
DX: M25.511 Pain in right shoulder (principal); M25.512 Pain in left shoulder; M75.32 Calcific tendinitis of left shoulder; M19.011 Primary osteoarthritis, right shoulder; M19.012 Primary osteoarthritis, left shoulder; M17.0 Bilateral primary osteoarthritis of knee
CPT/HCPCS: 20610; 99204

== ENCOUNTER → 2023-03-19 09:27 | Outpatient (BNVA) | payer OTHER, SELFPAY | PROVIDERS: PCP Internal Medicine; Visit Provider Nurse Practitioner Family | DX: M75.32 Calcific tendinitis of left shoulder (principal); M19.012 Primary osteoarthritis, left shoulder; M25.512 Pain in left shoulder; M19.011 Primary osteoarthritis, right shoulder; M25.511 Pain in right shoulder; M17.0 Bilateral primary osteoarthritis of knee | CPT/HCPCS: 20610; 99202; J3301 ==

== ENCOUNTER 2023-04-09 10:22 | Outpatient (REF) | payer OTHER, SELFPAY | END 2023-04-09 10:23 | disposition home or self-care (01) | LOC: HO.MAMMO 10:22 | PROVIDERS: PCP Internal Medicine; Visit Provider Internal Medicine | DX: Z12.31 Encounter for screening mammogram for malignant neoplasm of breast (principal) | CPT/HCPCS: 77063; 77067 ==

== ENCOUNTER → 2023-04-09 10:45 | Outpatient (BNV) | payer OTHER, SELFPAY | PROVIDERS: PCP Internal Medicine; Visit Provider Radiology Diagnostic Radiology | DX: Z12.31 Encounter for screening mammogram for malignant neoplasm of breast (principal) | CPT/HCPCS: 77063; 77067 ==

== ENCOUNTER 2023-06-09 10:41 | Outpatient (REF) | payer OTHER, SELFPAY ==
[2023-06-09 11:47] LABS: C Reactive Protein 0.74 mg/dL (< or = 0.50)
[2023-06-09 11:54] LABS: Erythrocyte Sedimentation Rate 37 MM/HR (0-20)
== END 2023-06-09 10:42 | disposition home or self-care (01) ==
LOC: HO.LAB 10:41
PROVIDERS: PCP Internal Medicine; Visit Provider Nurse Practitioner Family
DX: M25.519 Pain in unspecified shoulder (principal)
CPT/HCPCS: 36415; 85652; 86140

== ENCOUNTER 2023-07-19 08:19 | Outpatient (REF) | payer OTHER, SELFPAY ==
[2023-07-19 08:32] LABS: MANUAL DIFF FLAG NO
[2023-07-19 08:40] LABS: Basophils Percent Auto 0.2 % (0-2); Eosinophils Percent Auto 0.2 % (0-4); Hematocrit 37.2 % (37.0-47.0); Hemoglobin 12.7 g/dl (12.0-16.0); Imm Gran Abs Auto 0.03 X10*3/uL (0.00-0.03); Imm Gran Pct Auto 0.3 % (0.0-0.4); Lymphocytes Absolute Auto 2.2 X10*3/uL (1.2-4.9); Lymphocytes Percent Auto 26.1 % (20-40); Mean Corpuscular HGB Conc 34.1 g/dl (31.0-35.0); Mean Corpuscular Hemoglobin 31.7 pg (27.0-33.0); Mean Corpuscular Volume 92.8 fL (80.0-98.0); Mean Platelet Volume 8.9 fL (9.4-12.3); Monocytes Absolute Auto 0.6 X10*3/uL (0.1-1.2); Monocytes Percent Auto 7.1 % (2-11); Neutrophils Absolute Auto 5.7 x10*3/uL (2.0-8.3); Neutrophils Percent Auto 66.1 % (45-73); Platelet Count 317 X10*3/uL (160-400); Red Blood Count 4.01 X10*6/uL (4.20-5.50); Red Cell Distribution Width 13.3 % (11.0-16.0); White Blood Count 8.6 X10*3/uL (4.8-10.8)
[2023-07-19 09:22] LABS: Alanine Aminotransferase 15 U/L (0-31); Albumin Level 4.1 g/dL (3.5-5.0); Alkaline Phosphatase 88 U/L (39-117); Anion Gap 12 (12-20); Aspartate Amino Transferase 15 U/L (5-31); Bilirubin Total 0.4 mg/dL (0.0-1.0); Blood Urea Nitrogen 14 mg/dL (9-16); Carbon Dioxide 27 mmol/L (22-29); Chloride 106 mmol/L (96-108); Cholesterol 164 mg/dL (<200); Estimated Glomerular Filt Rate > 60; Glucose Fasting 124 mg/dL (60-99); HDL Cholesterol 60 mg/dL (>40); LDL Cholesterol Calculated 89 mg/dL (<100); Potassium 3.9 mmol/L (3.3-5.1); Sodium 141 mmol/L (135-145); Total Protein 7.8 g/dL (6.5-8.0); Triglycerides 75 mg/dL (<150)
[2023-07-19 09:29] LABS: TSH reflex Free T4 2.03 uIU/mL (0.32-4.0); Vitamin D 25-OH Total 28.1 ng/mL (>30)
[2023-07-19 10:22] LABS: Appearance Urine Clear; Color Urine Yellow; Glucose Urine UA Negative (Negative); Leukocyte Esterase Urine Trace (Negative); Nitrite Urine Negative (Negative); Specific Gravity - Urine 1.025 (1.005-1.025); UMIC TRIGGER UACC YES; Urine Blood Trace (Negative); Urine Ketones Negative (Negative); Urine Protein Negative (Neg-Trace)
[2023-07-19 10:26] LABS: Bacteria Urine None Seen (None Seen); Hyaline Casts Urine 0-2 /LPF (0-2); WBC Urine 0-5 /HPF (0-5)
== END 2023-07-19 08:20 | disposition home or self-care (01) ==
LOC: HO.LAB 08:19
PROVIDERS: PCP Internal Medicine; Visit Provider Internal Medicine
DX: I10 Essential (primary) hypertension (principal); E78.00 Pure hypercholesterolemia, unspecified; E55.9 Vitamin D deficiency, unspecified
CPT/HCPCS: 36415; 80053; 80061; 81001; 81003; 82306; 84443; 85025

== ENCOUNTER 2023-07-21 10:21 | Outpatient (AMB) | payer OTHER, SELFPAY ==
[2023-07-21 10:27] VITALS: BP 126/78; PULSE 90; O2SAT 98; BMI 38.7
--- NOTE | 2023-07-21 10:27 | A.OFFPC_ITS ---
Vital Signs 07/21/23 10:27 Height 5 ft Weight 198 lb 0.2 oz BMI 38.7 BP 126/78 Blood Pressure Location Lt brachial Position Sitting Pulse 90 Pulse Source Pulse Oximeter Pulse Oximetry (%) 98 Oxygen Delivery Method Room Air Intake Visit Reasons: 4 month f/u Intake Note: Patient is here to follow up on 4 months High Raw Sugar Boiler Required: Yes High Raw Sugar Boiler Language: Moldovan Allergies Penicillins (PENICILLINS) Allergy (Intermediate, Verified 07/07/24 11:01) RASH/ITCHING Medication List - Last Reconciled 07/21/23 by Nathan Xavier MD acetaminophen ER 650 mg PO Q8H PRN 30 days albuterol sulfate 90 mcg/actuation (ProAir HFA) 2 puffs inhalation Q6H PRN 30 days atorvastatin 20 mg PO QPM 90 days buspirone 5 mg PO BID calcium acetate(phosphat bind) 667 mg PO TID cholecalciferol (vitamin D3) 25 mcg PO DAILY 90 days clotrimazole-betamethasone 1-0.05 % 1 appl topical BID 5 days cyclobenzaprine 5 mg PO BID PRN hydroxyzine pamoate 50 mg PO BID PRN ibuprofen 600 mg PO TID PRN 30 days nebulizers (Compact Compressor Nebulizer) As directed sertraline 100 mg PO DAILY trazodone 50 mg PO DAILY Tobacco use date assessed: 07/21/23 Dental Screening Dental Screen Date: 03/17/23 HPI 4 month f/u HPI Details Patient comes in today for her follow up visit States that she feels okay She denies any headaches or dizziness Denies any chest pains, no increased SOB No nausea/vomiting, no abdominal pain No change in bowel habits noted She had her follow up labs done a couple of days ago - to discuss her results [facility] Medical History Chronic thoracic back pain Levoscoliosis of thoracolumbar spine Bilateral primary osteoarthritis of knee Osteoarthritis of shoulders, bilateral Calcific tendinitis of left shoulder region Chest wall abscess Obesity (BMI 30-39.9) Degenerative joint disease of thoracic spine Depression Primary insomnia Lumbar spondylosis Vitamin D deficiency Impaired fasting glucose Pure hypercholesterolemia Elevated blood pressure reading JENNIFER I (cervical intraepithelial neoplasia I) Insomnia Asthma Hyperlipemia Surgical History History of varicose veins Family History Father Cancer Hypertension Bladder cancer Mother Hypertension Diabetes Uterine cancer Maternal Grandmother No problems noted. Sister No problems noted. 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: left hand Cognitive needs: No Hearing needs: No Vision needs: No Female Reproductive History Menstrual Age of Menarche: 14 Questionnaire Thrive Questionnaire Date Thrive assessed: 07/21/23 I am a: Patient What is your living situation today?: I have a steady place to live Within the past 12 months, did the food you bought not last and you didn't have the money to get more?: Never true Within the past 12 months, did you worry whether your food would run out before you got money to buy more?: Never true Do you have trouble paying for medicines?: No Do you have trouble getting transportation to medical appointments?: No Do you have trouble paying your heating and electricity bill?: No Do you have trouble taking care of your child, family member or friend?: No Do you have trouble with day-to-day activities such as bathing, preparing meals, shopping, managing finances, etc.?: No Are you currently unemployed and looking for a job?: No Are you interested in more education?: No Please select the resources that you would like help with: None Currently or been in a relationship where the following occur: no concerns reported THRIVE Score: 0 AUDIT C Alcohol Use Questionnaire (AUDIT-C) 1. How often do you have a drink containing alcohol?: Never 3. How often do you have six or more drinks on one occasion?: Never Total Score: 0 Score Reviewed/Action Taken: Yes EZ-7 AMB Questionnaire EZ-7 Date EZ - 7 assessed: 03/17/23 Source: Developed by Drs. Yves Lam, María Alfred, Negrito Mcguire and colleagues, with an educational terri from [employer]. Review of Systems Const Denies chills, Denies fatigue, Denies fever(s) and Denies headache(s) ENT Denies dysphagia, Denies dizziness, Denies otalgia, Denies headache(s), Denies neck pain, Denies odynophagia and Denies sore throat Card Denies chest pain, Denies palpitations and Reports dyspnea on exertion (mild) Resp Denies chest congestion, Denies cough and Reports dyspnea on exertion (mild) GI Denies abdominal pain, Denies constipation, Denies dysphagia, Denies heartburn, Denies diarrhea, Denies nausea, Denies odynophagia and Denies vomiting Denies difficulty voiding, Denies nocturia, Denies dysuria and Denies urinary urgency Musc Reports back pain (over the mid to lower back), Reports myalgias (diffuse), Reports arthralgias (multiple joints, including both shoulders and the left knee), Denies neck pain and Reports stiffness Skin/Breast Denies rash Neuro Denies dizziness and Denies headache(s) Endo Denies fatigue and Denies palpitations Physical exam (Primary Care) Vital Signs: Last Vital Signs Pulse 90 07/21/23 10:27 BP 126/78 07/21/23 10:27 Pulse Ox 98 07/21/23 10:27 Oxygen Delivery Method Room Air 07/21/23 10:27 BMI result Body Mass Index 38.7 Tobacco/Smoking Status: Tobacco use Status Tobacco use date assessed 07/21/23 07/21/23 10:28 Patient Tobacco Use Status Never used Tobacco 07/21/23 10:28 e-Cigarette/Vaping Use Never Used 07/21/23 10:28 Thrive Assessment: Date of Thrive Assessment Date Thrive assessed 07/21/23 07/21/23 10:28 Currently or been in a relationship where the following occur: no concerns reported Const General: no acute distress and alert HENMT Ears: TM's normal bilaterally and EAC's normal Throat: Yes posterior oropharynx normal and Yes tonsils normal (no TP congestion) Neck Neck: Yes no lymphadenopathy and Yes supple Thyroid: Thyroid normal Resp Auscultation: clear to auscultation bilaterally, no rales and no wheezes Cardio Rate: regular rate Rhythm: regular rhythm Heart sounds: no murmurs GI Palpation (GI): Soft to palpation and nontender Auscultation: normal bowel sounds General: Yes no CVA tenderness Back/Spine/Pelvis Back: no CVA tenderness Thoracic/Lumbar Spine: paraspinal muscle tenderness bilaterally in the mid thoracic, in the lower thoracic, in the mid lumbar and in the lower lumbar, thoracic spinal tenderness and lumbar spinal tenderness Skin Rashes: no rashes Extrem General: Yes no clubbing, cyanosis or edema Right upper extremity: shoulder/upper arm Details: tenderness; no swelling Left upper extremity: shoulder/upper arm Details: tenderness; no swelling Left lower extremity: knee Details: tenderness; no swelling Results Reviewed Results Reviewed: Laboratory Tests 07/19/23 07/19/23 08:25 08:27 WBC 8.6 Hgb 12.7 Hct 37.2 Plt Count 317 Sodium 141 Potassium 3.9 Creatinine 0.66 Estimated GFR > 60 Fasting Glucose 124 H Calcium 10.0 AST 15 ALT 15 Triglycerides 75 Cholesterol 164 LDL Cholesterol, Calc 89 HDL Cholesterol 60 25-OH Vitamin D Total 28.1 L TSH 2.03 Ur Specific [place] 1.025 Urine Protein Negative Urine Glucose (UA) Negative Urine Blood Trace H Urine Nitrite Negative Ur Leukocyte Esterase Trace H Coding Level of Care Code Est Pt Level 4 (01671) Diagnoses Pure hypercholesterolemia E78.00 Elevated blood pressure reading R03.0 Impaired fasting glucose R73.01 Vitamin D deficiency E55.9 Lumbar spondylosis M47.816 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.814 Spinal osteoarthritis complication: without myelopathy or radiculopathy Chronic pain of left knee M25.562; G89.29 Chronicity: chronic Bilateral shoulder pain, unspecified chronicity M25.511; M25.512 Chronicity: unspecified Laterality: bilateral Primary insomnia F51.01 Depression, unspecified depression type F32.9 Depression Type: unspecified Obesity (BMI 30-39.9) E66.9
== END 2023-07-21 11:48 | disposition home or self-care (01) ==
PROVIDERS: PCP Internal Medicine; Visit Provider Internal Medicine
DX: E78.00 Pure hypercholesterolemia, unspecified (principal); R03.0 Elevated blood-pressure reading, without diagnosis of hypertension; R73.01 Impaired fasting glucose; E55.9 Vitamin D deficiency, unspecified; M47.816 Spondylosis without myelopathy or radiculopathy, lumbar region; M47.814 Spondylosis without myelopathy or radiculopathy, thoracic region; M25.562 Pain in left knee; G89.29 Other chronic pain; M25.511 Pain in right shoulder; M25.512 Pain in left shoulder; F51.01 Primary insomnia; F32.9 Major depressive disorder, single episode, unspecified; E66.9 Obesity, unspecified
CPT/HCPCS: 99499

== ENCOUNTER 2023-08-13 10:33 | Outpatient (AMB) | payer OTHER, SELFPAY ==
--- NOTE | 2023-08-13 10:38 | MHC.OFFVIS ---
Vital Signs 08/13/23 10:48 Height 5 ft Weight 198 lb BMI 38.7 BP 130/92 H Blood Pressure Location Rt brachial Position Sitting Pulse 88 Pulse Oximetry (%) 97 Intake Visit Reasons: Left Shoulder Pain/OA Intake Note: Patient last seen 03/19/23 by Luke, presents today for follow up. Patient reports back pain today. Agent Based Modeler Required: Yes Agent Based Modeler Language: Mud Temperer Name: [id number] Information Interpreted: clinical only Allergies Penicillins [PENICILLINS] Allergy (Intermediate, Verified 08/13/23 10:39) RASH/ITCHING HPI Comments Details: Ms. Montana Monzon yoRasheed presents today for evaluation of joint pain. She is a former patient and was last seen in the office June 2022. 03/19/2023 visit: Ms. Montana Monzon yoRasheed presents today for evaluation of joint pain. She is a former patient and was last seen in the office June 2022. Today she registers similar concerns for shoulder, knee and foot pain. She reports her PCP told her to go back to the pharmaceutical development technician to discuss the joint pain treatment. She currently takes Ibuprofen and Tylenol arthritis which provides relief for 4 hours but the pain returns. The main area today is her left shoulder. She is also scheduled to do PT per PCP. She has also done xrays of shoulder, knees and lower back. She has not had any joint swelling or redness. She does have stiffness that comes and goes all day. [facility] Medical History (Updated 08/13/23 @ 11:15 by Maura Butler [facility]) Chronic thoracic back pain Levoscoliosis of thoracolumbar spine Bilateral primary osteoarthritis of knee Osteoarthritis of shoulders, bilateral Calcific tendinitis of left shoulder region Chest wall abscess Obesity (BMI 30-39.9) Degenerative joint disease of thoracic spine Depression Primary insomnia Lumbar spondylosis Vitamin D deficiency Impaired fasting glucose Pure hypercholesterolemia Elevated blood pressure reading JENNIFER I (cervical intraepithelial neoplasia I) Physical exam Insomnia Asthma Hyperlipemia Surgical History History of varicose veins Family History Father Cancer Hypertension Bladder cancer Mother Hypertension Diabetes Uterine cancer Maternal Grandmother No problems noted. Sister No problems noted. Social History (Reviewed 08/13/23 @ 10:49 by LAYNE Desir Household Members Other:: Son Housing: Apartment Alcohol intake: never Patient Tobacco Use Status: Never used Tobacco e-Cigarette/Vaping Use: Never Used Second Hand Smoke Exposure: No service: No Current occupational status: disabled Cognitive needs: No Hearing needs: No Vision needs: No Female Reproductive History Menstrual Age of Menarche: 14 Review of Systems Const All systems reviewed & are unremarkable except as noted in HPI and below Physical Exam Vital Signs: Last Vital Signs Pulse 88 08/13/23 10:48 BP 130/92 H 08/13/23 10:48 Pulse Ox 97 08/13/23 10:48 BMI result Body Mass Index 38.7 APPEARANCE: Patient in no acute distress EYES no redness, eyelids normal EARS:? External ear normal, canal clear and tympanic membrane normal. NOSE/SINUS:? Airflow through both nares, no nasal discharge, no bleeding HEART:? Regular rhythm, S1-S2 heard, no murmurs, rubs or gallops. LUNG:? Clear to percussion and auscultation MUSCULOSKELETAL:? No edema, no calf tenderness, normal peripheral pulses. Grossly normal range of motion in joints throughout the body. No deformity or other signs of injury. NEURO:? Oriented and alert x3.? No focal weakness.? Reflexes symmetric.? Gait normal. SKIN:? There are no skin lesions evident. No objective signs of Raynaud's phenomenon. JOINT EXAM: Cervical Spine:.? Full range of motion without pain; no tenderness. Thoracic Spine:.? No scoliosis.? No tenderness on palpation. Lumbar Spine:.? Alignment normal.? Full range of motion without pain, mild tenderness with palpation Chest Wall:.? No tenderness, swelling, increased warmth or erythema. Hands:.? Normal pain-free range of motion without tenderness, swelling, increased warmth or erythema. Able to make a full fist and has a good sheetfed press operator strength. Wrists:.? Normal pain-free range of motion without tenderness, swelling, increased warmth or erythema. Elbows:. Normal pain-free range of motion without tenderness, swelling, increased warmth or erythema. Shoulders:.?? RIGHT:Full range of motion without pain. No tenderness, weakness, swelling, increased warmth or erythema. LEFT: decreased range of motion with pain at 110 degrees. tenderness, mild weakness, no swelling, increased warmth or erythema. Hips:.? Full range of motion without pain. Hip bursa:.? No tenderness. Knees:.?? Normal pain-free range of motion without tenderness, swelling, increased warmth or erythema.? There is no effusion or crepitation Ankles:.? Normal pain-free range of motion without tenderness, swelling, increased warmth or erythema. Feet:.? Normal pain-free range of motion without tenderness, swelling, increased warmth or erythema. Results Reviewed Results Reviewed: Laboratory Tests 06/09/23 07/19/23 10:49 08:27 WBC 8.6 RBC 4.01 L Hgb 12.7 Hct 37.2 ESR 37 H AST 15 ALT 15 C-Reactive Protein 0.74 H 25-OH Vitamin D Total 28.1 L Assessment & Plan Assessment & Plan (1) Shoulder pain: Code(s): M25.519 - Pain in unspecified shoulder Category: Medical Qualifiers: Chronicity: unspecified Laterality: bilateral Qualified Code(s): M25.511 - Pain in right shoulder; M25.512 - Pain in left shoulder (2) Calcific tendinitis of left shoulder region: Code(s): M75.32 - Calcific tendinitis of left shoulder Category: Medical (3) Osteoarthritis of shoulders, bilateral: Code(s): M19.011 - Primary osteoarthritis, right shoulder; M19.012 - Primary osteoarthritis, left shoulder Category: Medical Qualifiers: Osteoarthritis type: primary Qualified Code(s): M19.011 - Primary osteoarthritis, right shoulder; M19.012 - Primary osteoarthritis, left shoulder (4) Bilateral primary osteoarthritis of knee: Code(s): M17.0 - Bilateral primary osteoarthritis of knee Category: Medical (5) Levoscoliosis of thoracolumbar spine: Code(s): M41.85 - Other forms of scoliosis, thoracolumbar region Category: Medical (6) Chronic thoracic back pain: Comment: She as marked Levoscoliosis. Code(s): M54.6 - Pain in thoracic spine; G89.29 - Other chronic pain Category: Medical Qualifiers: Back pain laterality: bilateral Qualified Code(s): M54.6 - Pain in thoracic spine; G89.29 - Other chronic pain Plan #Bilateral Shoulder OA/Left Shoulder Calcific Tendinitis: Ms. Hanna 57 yoF returns for evaluation of joint pain after a long absent. Her PCP ordered Xrays which shows OA of both shoulders with calcific tendonitis, with more calcification on the left. The left shoulder injection given at 03/2023 did help for 2 months but now has onset of ROS although not as bad as it was before. She can use the newly prescribed volateren gel on the shoulder also. She does not want anymore injections. Patient would also benefit from wearing sports bra with wider shoulder straps. Her breasts are ample and given the bra impression on her shoulders, I suspect this may also be contributing to the shoulder and back discomfort. #Thoracic back pain with Levoscoliosis: Imaging shows marked Levoscoliosis. She said her son had her try the diclofenac gel which she says gave her 3 days relief at a time so I will prescribe that for her. Tylenol also helps with the pain. Note: The patient has elevated ESR/CRP. In the context of her back pain, one wonders if this is inflammatory back pain. She does get relief from the Tyelenol and the diclofenac so we will continue those at this time. She has had multiple therapy session over the years. #Bilateral Knee OA: I think the knee pain is from the OA, but also deconditioning. She has weak quad muscles and weak muscles causes more pressure on the joints. She denies red, warm swollen joints and the knee pain happes when she walks. Her Rheumatology serology is negative for RF/CCP, and CALEB. Her CRP/ESR baseline mild elevation. She will continue with Ibuprofen 600 mg 1 tablet PO Q4 prn and Acetaminophen 650mg -1-2 tablets q12 hours PRN pain. Return to clinic 6 months I have spent 20 minutes reviewing chart and imaging, evaluating patient, discussing treatment options, and documenting. Coding Level of Care Code Est Pt Level 3 (33938) Complex EM visit Add On G2211 Diagnoses Bilateral shoulder pain, unspecified chronicity M25.511; M25.512 Chronicity: unspecified Laterality: bilateral Calcific tendinitis of left shoulder region M75.32 Primary osteoarthritis of both shoulders M19.011; M19.012 Osteoarthritis type: primary Bilateral primary osteoarthritis of knee M17.0 Levoscoliosis of thoracolumbar spine M41.85 Chronic bilateral thoracic back pain M54.6; G89.29 Back pain laterality: bilateral
[2023-08-13 10:48] VITALS: BP 130/92; PULSE 88; O2SAT 97; BMI 38.7
== END 2023-08-13 11:12 | disposition home or self-care (01) ==
PROVIDERS: PCP Internal Medicine; Visit Provider Nurse Practitioner Family
DX: M25.511 Pain in right shoulder (principal); M25.512 Pain in left shoulder; M75.32 Calcific tendinitis of left shoulder; M19.011 Primary osteoarthritis, right shoulder; M19.012 Primary osteoarthritis, left shoulder; M17.0 Bilateral primary osteoarthritis of knee; M41.85 Other forms of scoliosis, thoracolumbar region; M54.6 Pain in thoracic spine; G89.29 Other chronic pain
CPT/HCPCS: 99213; G2211

== ENCOUNTER → 2023-08-13 10:33 | Outpatient (BNVA) | payer OTHER, SELFPAY | PROVIDERS: PCP Internal Medicine; Visit Provider Nurse Practitioner Family | DX: M25.511 Pain in right shoulder (principal); M25.512 Pain in left shoulder; M19.011 Primary osteoarthritis, right shoulder; M19.012 Primary osteoarthritis, left shoulder; M75.32 Calcific tendinitis of left shoulder; M17.0 Bilateral primary osteoarthritis of knee; M41.85 Other forms of scoliosis, thoracolumbar region; M54.6 Pain in thoracic spine; G89.29 Other chronic pain | CPT/HCPCS: 99212 ==

== ENCOUNTER 2023-10-21 14:22 | Outpatient (AMB) | payer OTHER, SELFPAY ==
[2023-10-21 14:34] VITALS: BP 110/70; BMI 38.3
--- NOTE | 2023-10-21 14:34 | MHC.OFFVIS ---
Vital Signs 10/21/23 14:34 Height 5 ft Weight 196 lb BMI 38.3 BP 110/70 Intake Visit Reasons: CARDIAC SPECIALIST annual exam/DO NOT RS Language Arts Teacher Required: Yes Language Arts Teacher Language: Route Relief Driver Services: Language Arts Teacher Present (in person) Language Arts Teacher Name: Romy HANSON Information Interpreted: non-clinical & clinical Engineer Exhauster: Engineer Exhauster Present (Romy HANSON) Accompanied by: Self / Same As Patient Allergies Penicillins [PENICILLINS] Allergy (Intermediate, Verified 10/21/23 14:38) RASH/ITCHING Post menopausal: Yes HPI Comments Details: Presenting for annual exam. No complaints. Last Pap/HPV was negative in 05/28 this was preceded by LEEP cone for persistent JENNIFER 1 in 2021 Last Mammogram was BI-RADS 1 in 05/01 Last Colonoscopy was 8 years ago, the recommendation was to repeat in 10 years according to the patient [facility] Medical History Chronic thoracic back pain Levoscoliosis of thoracolumbar spine Bilateral primary osteoarthritis of knee Osteoarthritis of shoulders, bilateral Calcific tendinitis of left shoulder region Chest wall abscess Obesity (BMI 30-39.9) Degenerative joint disease of thoracic spine Depression Primary insomnia Lumbar spondylosis Vitamin D deficiency Impaired fasting glucose Pure hypercholesterolemia Elevated blood pressure reading JENNIFER I (cervical intraepithelial neoplasia I) Physical exam Insomnia Asthma Hyperlipemia Surgical History History of varicose veins Family History Father Cancer Hypertension Bladder cancer Mother Hypertension Diabetes Uterine cancer Maternal Grandmother No problems noted. Sister No problems noted. Social History Household Members Other:: Son Housing: Apartment Alcohol intake: never Patient Tobacco Use Status: Never used Tobacco e-Cigarette/Vaping Use: Never Used Second Hand Smoke Exposure: No service: No Current occupational status: disabled Cognitive needs: No Hearing needs: No Vision needs: No Female Reproductive History Menstrual Age of Menarche: 14 Menopause type: natural Total pregnancies: 3 Full term: 2 Number of Living Children: 2 Ab spontaneous: 1 Date of last pap smear: 05/20/22 Date of Mammogram: 04/09/23 Review of Systems Const All systems reviewed & are unremarkable except as noted in HPI and below Card Reports as per HPI Resp Reports as per HPI GI Reports as per HPI and Reports no additional complaints Reports as per HPI Physical Exam Vital Signs: Last Vital Signs BP 110/70 10/21/23 14:34 BMI result Body Mass Index 38.3 Const General: cooperative, healthy appearing and comfortable Chest Chest palpation & inspection: normal inspection of the chest and normal palpation of entire chest wall Breast/axilla inspection: normal inspection of the breasts and normal inspection of the axillae Breast/axilla palpation: normal palpation of the breasts, normal palpation of the axillae and no axillary lymphadenopathy Resp Effort & Inspection: normal respiratory effort Auscultation: clear to auscultation bilaterally Percussion: percussion normal Cardio Palpation: normal PMI Rate: regular rate Rhythm: regular rhythm Heart sounds: no murmurs and no rubs Peripheral pulses: Peripheral pulses 2+ throughout GI Inspection: Yes normal to inspection Palpation (GI): Soft to palpation, nontender, no guarding, not rigid and No hepatosplenomegaly present Percussion: Yes normal to percussion Auscultation: normal bowel sounds Rectal Exam - Female: deferred General: Yes bladder normal to palpation External Female Exam: No lesion Speculum Exam - Vagina: normal appearance of the vagina, normal palpation, normal vaginal discharge and not erythematous Speculum Exam - Cervix: normal appearance of the cervix and normal palpation Bimanual exam- vagina & uterus: normal bimanual exam, normal palpation, uterine size normal, bladder normal to palpation, consistency normal and normal palpation Bimanual Exam- Adnexa, other: normal adnexae, no masses and no tenderness Assessment & Plan Assessment & Plan (1) Well woman exam: Code(s): Z01.419 - Encounter for gynecological examination (general) (routine) without abnormal findings Category: Medical Plan: Co testing done. Counseled the patient about the recommended dietary allowance of 1200 mg of Calcium & 600 IU of vitamin D. Instructions given the patient to schedule next screening Mammogram in 05/02. The patient was instructed to perform monthly self-breast exams and schedule annual exam in a year. All questions answered and the patient verbalized understanding. Coding Level of Care Code Est Pt Prev Care 40-64y(08177) Diagnoses Well woman exam Z01.419
== END 2023-10-21 15:46 | disposition home or self-care (01) ==
LOC: HO.HWS 14:22
PROVIDERS: PCP Internal Medicine; Visit Provider Obstetrics & Gynecology
DX: Z01.419 Encounter for gynecological examination (general) (routine) without abnormal findings (principal)
CPT/HCPCS: 99396

== ENCOUNTER 2023-10-21 14:22 | Outpatient (REF) | payer OTHER, SELFPAY ==
[2023-10-25 20:13] LABS: HPV mRNA E6/E7 Not Detected (Not Detected)
== END 2023-10-21 14:23 | disposition home or self-care (01) ==
LOC: HO.LNP 14:22
PROVIDERS: PCP Internal Medicine; Visit Provider Obstetrics & Gynecology
DX: Z01.419 Encounter for gynecological examination (general) (routine) without abnormal findings (principal)
CPT/HCPCS: 87624; 88175

== ENCOUNTER 2023-11-24 08:18 | Outpatient (REF) | payer OTHER, SELFPAY ==
[2023-11-24 08:33] LABS: MANUAL DIFF FLAG NO
[2023-11-24 09:33] LABS: Basophils Percent Auto 0.2 % (0-2); Eosinophils Percent Auto 0.4 % (0-4); Hematocrit 35.9 % (37.0-47.0); Hemoglobin 11.7 g/dl (12.0-16.0); Imm Gran Abs Auto 0.02 X10*3/uL (0.00-0.03); Imm Gran Pct Auto 0.2 % (0.0-0.4); Lymphocytes Absolute Auto 2.2 X10*3/uL (1.2-4.9); Lymphocytes Percent Auto 26.9 % (20-40); Mean Corpuscular HGB Conc 32.6 g/dl (31.0-35.0); Mean Corpuscular Hemoglobin 30.4 pg (27.0-33.0); Mean Corpuscular Volume 93.2 fL (80.0-98.0); Mean Platelet Volume 9.4 fL (9.4-12.3); Monocytes Absolute Auto 0.7 X10*3/uL (0.1-1.2); Monocytes Percent Auto 8.7 % (2-11); Neutrophils Absolute Auto 5.1 x10*3/uL (2.0-8.3); Neutrophils Percent Auto 63.6 % (45-73); Platelet Count 309 X10*3/uL (160-400); Red Blood Count 3.85 X10*6/uL (4.20-5.50); Red Cell Distribution Width 13.5 % (11.0-16.0); White Blood Count 8.1 X10*3/uL (4.8-10.8)
[2023-11-24 09:50] LABS: Appearance Urine Clear; Color Urine Yellow; Glucose Urine UA Negative (Negative); Leukocyte Esterase Urine Moderate (2+) (Negative); Nitrite Urine Negative (Negative); PH 5.5 (5.0-9.0); UMIC TRIGGER UACC YES; Urine Blood Moderate (2+) (Negative); Urine Ketones Trace mg/dL (Negative); Urine Protein 30 (1+) mg/dL (Neg-Trace)
[2023-11-24 09:54] LABS: Bacteria Urine Trace (None Seen); Hyaline Casts Urine 0-2 /LPF (0-2); UACC Culture Trigger YES
[2023-11-24 10:22] LABS: Alanine Aminotransferase 10 U/L (0-31); Albumin Level 3.9 g/dL (3.5-5.0); Alkaline Phosphatase 76 U/L (39-117); Anion Gap 9 (12-20); Aspartate Amino Transferase 14 U/L (5-31); Bilirubin Total 0.6 mg/dL (0.0-1.0); Blood Urea Nitrogen 9 mg/dL (9-16); Calcium 9.4 mg/dL (8.4-10.2); Carbon Dioxide 30 mmol/L (22-29); Chloride 107 mmol/L (96-108); Cholesterol 188 mg/dL (<200); Estimated Glomerular Filt Rate > 60; Glucose Fasting 128 mg/dL (60-99); HDL Cholesterol 55 mg/dL (>40); LDL Cholesterol Calculated 117 mg/dL (<100); Sodium 142 mmol/L (135-145); Total Protein 7.4 g/dL (6.5-8.0); Triglycerides 80 mg/dL (<150)
[2023-11-24 10:45] LABS: TSH reflex Free T4 2.13 uIU/mL (0.32-4.0); Vitamin D 25-OH Total 28.4 ng/mL (>30)
[2023-11-24 11:27] LABS: Estimated Average Glucose 123 mg/dL; Hemoglobin A1c % 5.9 % (<6.0)
== END 2023-11-24 08:19 | disposition home or self-care (01) ==
LOC: HO.LAB 08:18
PROVIDERS: PCP Internal Medicine; Visit Provider Internal Medicine
DX: E11.9 Type 2 diabetes mellitus without complications (principal); I10 Essential (primary) hypertension; E78.00 Pure hypercholesterolemia, unspecified; E55.9 Vitamin D deficiency, unspecified
CPT/HCPCS: 36415; 80053; 80061; 81001; 82306; 83036; 84443; 85025; 87086; 87147

== ENCOUNTER 2023-12-10 08:36 | Outpatient (REF) | payer OTHER, SELFPAY ==
--- NOTE | ~2023-12-10 | XR_ITS ---
EXAMINATION: XR SHOULDER, LEFT CLINICAL INFORMATION: Pain COMPARISON: X-ray dated November 16, 2022 TECHNIQUE: AP external rotation, Grashey, scapular Y, and axillary views of the left shoulder. FINDINGS: No acute cortical disruption or malalignment. No lytic or blastic lesions degenerative changes in the glenohumeral joint. XR/XR shoulder LT min 2V IMPRESSION: No acute fracture or dislocation. Electronically signed by: Guy Duke MD 01/14/2024 03:13 PM [facility]
== END 2023-12-10 08:37 | disposition home or self-care (01) ==
LOC: HO.LAB 08:36
PROVIDERS: PCP Internal Medicine; Visit Provider Internal Medicine
DX: M25.512 Pain in left shoulder (principal)
CPT/HCPCS: 73030

== ENCOUNTER → 2023-12-10 08:41 | Outpatient (BNV) | payer OTHER, SELFPAY | PROVIDERS: PCP Internal Medicine; Visit Provider Radiology Diagnostic Radiology | DX: M25.512 Pain in left shoulder (principal) | CPT/HCPCS: 73030 ==

== ENCOUNTER 2024-01-12 09:52 | Outpatient (AMB) | payer OTHER, SELFPAY ==
[2024-01-12 09:54] VITALS: BP 130/82; PULSE 86; O2SAT 96; BMI 38.7
--- NOTE | 2024-01-12 09:54 | MHC.PC.OV ---
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 Accompanied by: Self / Same As Patient Allergies Penicillins [PENICILLINS] Allergy (Intermediate, Verified 01/12/24 10:22) RASH/ITCHING Medication List - Last Reconciled 01/12/24 by Nathan Xavier MD acetaminophen ER 650 mg PO Q8H PRN 30 days albuterol sulfate 90 mcg/actuation (ProAir HFA) 2 puffs inhalation Q6H PRN 30 days atorvastatin 20 mg PO QPM 90 days buspirone 5 mg PO BID calcium acetate(phosphat bind) 667 mg PO TID cholecalciferol (vitamin D3) 25 mcg PO DAILY 90 days clotrimazole-betamethasone 1-0.05 % 1 appl topical BID 5 days diclofenac sodium 1% (Arthritis Pain (diclofenac)) 4 grams topical QID hydroxyzine pamoate 50 mg PO BID PRN ibuprofen 600 mg PO TID PRN 30 days nebulizers (Compact Compressor Nebulizer) As directed sertraline 100 mg PO DAILY trazodone 50 mg PO DAILY Tobacco use date assessed: 01/12/24 Dental Screening Dental Screen Date: 01/12/24 Did you have a dental visit in the last 12 months?: Yes Did you have a dental problem in the last 6 months where you did not have access to dental care?: No Was dental information given to patient?: Patient has dentist HPI follow up on labs/x-rays HPI Details Patient comes in today for her follow up visit States that she is still experiencing increased pain in her left shoulder and would like to know if her shoulder x-rays done last month showed anything to help explain her symptoms Would like to try getting Rx for Naproxen instead as she states that her Ibuprofen has not really been helping her too much States that she feels okay otherwise She denies any headaches or dizziness Denies any chest pains, no increased SOB No nausea/vomiting, no abdominal pain No change in bowel habits noted She had her follow up labs done a few weeks ago - to discuss her results Would also like to get her flu shot today [facility] Medical History (Updated 01/12/24 @ 10:53 by Nathan Xavier MD) Chronic thoracic back pain Levoscoliosis of thoracolumbar spine Bilateral primary osteoarthritis of knee Osteoarthritis of shoulders, bilateral Calcific tendinitis of left shoulder region Chest wall abscess Obesity (BMI 30-39.9) Degenerative joint disease of thoracic spine Depression Primary insomnia Lumbar spondylosis Vitamin D deficiency Impaired fasting glucose Pure hypercholesterolemia Elevated blood pressure reading JENNIFER I (cervical intraepithelial neoplasia I) Insomnia Asthma Hyperlipemia Surgical History History of varicose veins Family History Father Cancer Hypertension Bladder cancer Mother Hypertension Diabetes Uterine cancer Maternal Grandmother No problems noted. Sister No problems noted. Social History Household Members Other:: Son Housing: Apartment Alcohol intake: never Patient Tobacco Use Status: Never used Tobacco e-Cigarette/Vaping Use: Never Used Second Hand Smoke Exposure: No service: No Current occupational status: disabled Cognitive needs: No Hearing needs: No Vision needs: No Female Reproductive History Menstrual Age of Menarche: 14 Questionnaire PHQ-9 Over the last 2 weeks, how often have you been bothered by any of the following problems? 1. Little interest or pleasure in doing things: several days 2. Feeling down, depressed, or hopeless: several days 3. Trouble falling or staying asleep, or sleeping too much: several days 4. Feeling tired or having little energy: several days 5. Poor appetite or overeating: not at all 6. Feeling bad about yourself - or that you are a failure or have let yourself or your family down: not at all 7. Trouble concentrating on things, such as reading the newspaper or watching television: not at all 8. Moving or speaking so slowly that other people could have noticed. Or the opposite - being so fidgety or restless that you have been moving around a lot more than usual: not at all 9. Thoughts that you would be better off or of hurting yourself in some way: not at all Total score: 4 Depression Screening Interpretation: Positive Depression Screening Follow-up: Existing condition and In treatment Depression Screening Done: Yes 31088 - PHQ-9 Billing: Yes Source: Developed by Drs. Yves Lam, María Alfred, Negrito Mcguire and colleagues, with an educational terri from [employer] Thrive Questionnaire Date Thrive assessed: 01/12/24 I am a: Patient What is your living situation today?: I have a steady place to live Within the past 12 months, did the food you bought not last and you didn't have the money to get more?: Never true Within the past 12 months, did you worry whether your food would run out before you got money to buy more?: Never true Do you have trouble paying for medicines?: No Do you have trouble getting transportation to medical appointments?: No Do you have trouble paying your heating and electricity bill?: No Do you have trouble taking care of your child, family member or friend?: No Do you have trouble with day-to-day activities such as bathing, preparing meals, shopping, managing finances, etc.?: No Are you currently unemployed and looking for a job?: No Are you interested in more education?: No Please select the resources that you would like help with: None Currently or been in a relationship where the following occur: No concerns reported THRIVE Score: 0 AUDIT C Alcohol Use Questionnaire (AUDIT-C) 1. How often do you have a drink containing alcohol?: Never 3. How often do you have six or more drinks on one occasion?: Never Total Score: 0 Score Reviewed/Action Taken: Yes ZE-7 AMB Questionnaire EZ-7 Date EZ - 7 assessed: 01/12/24 Feeling nervous, anxious, or on edge: 0 = Not at all Not being able to stop or control worryin = Not at all Worrying too much about different things: 0 = Not at all Trouble relaxin = Not at all Being so restless that it is hard to sit still: 0 = Not at all Becoming easily annoyed or irritable: 0 = Not at all Feeling afraid as if something awful might happen: 0 = Not at all Total EZ-7 score (0-4 normal; 5-9 mild; 10-14 moderate; 15-21 severe): 0 Source: Developed by María Cruz, Negrito Mcguire and colleagues, with an educational terri from [employer] Review of Systems Const Denies chills, Denies fatigue, Denies fever(s) and Denies headache(s) ENT Denies dysphagia, Denies dizziness, Denies otalgia, Denies headache(s), Denies neck pain, Denies odynophagia and Denies sore throat Card Denies chest pain, Denies irregular heart rhythm, Denies palpitations and Reports dyspnea on exertion (mild) Resp Denies chest congestion, Denies cough and Reports dyspnea on exertion (mild) GI Denies abdominal pain, Denies constipation, Denies dysphagia, Denies heartburn, Denies diarrhea, Denies nausea, Denies odynophagia and Denies vomiting Denies difficulty voiding, Denies nocturia, Denies dysuria and Denies urinary urgency Musc Reports back pain (over the mid to lower back), Reports myalgias (diffuse), Reports arthralgias (involving multiple joints; especially over her left shoulder lately), Denies neck pain and Reports stiffness Skin/Breast Denies rash Neuro Denies dizziness and Denies headache(s) Endo Denies fatigue and Denies palpitations Physical exam (Primary Care) Vital Signs: Last Vital Signs Pulse 86 01/12/24 09:54 BP 130/82 01/12/24 09:54 Pulse Ox 96 01/12/24 09:54 Oxygen Delivery Method Room Air 01/12/24 09:54 BMI result Body Mass Index 38.7 Tobacco/Smoking Status: Tobacco use Status Tobacco use date assessed 01/12/24 01/12/24 09:56 Patient Tobacco Use Status Never used Tobacco 01/12/24 09:56 e-Cigarette/Vaping Use Never Used 01/12/24 09:56 PHQ-9: PHQ-9 Score PHQ-9: Total score 4 01/12/24 10:26 Depression Screening Interpretation: Positive Depression Screening Follow-up: Existing condition and In treatment Thrive Assessment: Date of Thrive Assessment Date Thrive assessed 01/12/24 01/12/24 09:56 Currently or been in a relationship where the following occur: No concerns reported Const General: no acute distress and alert HENMT Ears: TM's normal bilaterally and EAC's normal Throat: Yes posterior oropharynx normal and Yes tonsils normal (no TP congestion) Neck Neck: Yes no lymphadenopathy and Yes supple Thyroid: Thyroid normal Resp Auscultation: clear to auscultation bilaterally, no rales and no wheezes Cardio Rate: regular rate Rhythm: regular rhythm Heart sounds: no murmurs GI Palpation (GI): Soft to palpation and nontender Auscultation: normal bowel sounds General: Yes no CVA tenderness Back/Spine/Pelvis Back: no CVA tenderness Thoracic/Lumbar Spine: paraspinal muscle tenderness bilaterally in the mid thoracic, in the lower thoracic, in the mid lumbar and in the lower lumbar, thoracic spinal tenderness and lumbar spinal tenderness Skin Rashes: no rashes Extrem General: Yes no clubbing, cyanosis or edema Left upper extremity: shoulder/upper arm (increased) Details: tenderness; no swelling Left lower extremity: knee Details: tenderness; no swelling Office Procedures Flu Questionnaire Does the patient have a severe egg allergy?: No Does the patient have severe life threatening allergies?: No Does the patient have a fever or illness today?: No Has the patient ever had Guillain-Allston Syndrome?: No Has the patient ever had any past reaction to a flu shot?: No Immunizations Fluarix Triv [id number] (PF) 45 mcg (15 mcg x 3)/0.5 mL IM syringe Performing Provider: Nathan Xavier MD [facility] Administered by: MARGIE Larsen on 01/12/24 10:33 Dose Route Admin Location Dispensed Lot Number Expiration Date [place] [employer]ner 0.5 mL IM Right Deltoid 0.5 mL [id number] 09/04/24 [id number] [place] VIS Given Date VIS Provided VIS Publication Date 01/12/24 Single Vaccine 20 Eligibility Eligibility Date Funding Source Not [facility] Eligible 01/12/24 Private Results Reviewed Results Reviewed: Laboratory Tests 11/24/23 11/24/23 08:32 08:54 WBC 8.1 Hgb 11.7 L Hct 35.9 L Plt Count 309 Sodium 142 Potassium 4.0 Creatinine 0.69 Estimated GFR > 60 Fasting Glucose 128 H Hemoglobin A1c % 5.9 Calcium 9.4 ALT 10 Triglycerides 80 Cholesterol 188 LDL Cholesterol, Calc 117 H HDL Cholesterol 55 25-OH Vitamin D Total 28.4 L TSH 2.13 Ur Specific Concepcion 1.020 Urine Protein 30 (1+) H Urine Glucose (UA) Negative Urine Blood Moderate (2+) H Urine Nitrite Negative Ur Leukocyte Esterase Moderate (2+) H Coding Level of Care Code Est Pt Level 4 (13511) Complex EM visit Add On G2211 Diagnoses Pure hypercholesterolemia E78.00 Elevated blood pressure reading R03.0 Impaired fasting glucose R73.01 Vitamin D deficiency E55.9 Lumbar spondylosis M47.816 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.814 Spinal osteoarthritis complication: without myelopathy or radiculopathy Bilateral primary osteoarthritis of knee M17.0 Bilateral shoulder pain, unspecified chronicity M25.511; M25.512 Chronicity: unspecified Laterality: bilateral Insomnia, unspecified type G47.00 Insomnia type: unspecified Depression, unspecified depression type F32.9 Depression Type: unspecified Obesity (BMI 30-39.9) E66.9 Additional Codes PHQ-9 - 91482 - PHQ-9 Billing: Yes ([id number]) Assessment & Plan Assessment & Plan (1) Pure hypercholesterolemia: Code(s): E78.00 - Pure hypercholesterolemia, unspecified Category: Medical Plan: Results of her labs done a few weeks ago reviewed and discussed with patient - she is advised that her cholesterol levels have increased from previous despite her being on cholesterol-lowering medication(s) Reinforced low cholesterol diet - patient admits to some poor dietary compliance at times and is requesting to have her Rx dose increased as she is concerned about having high cholesterol levels Per request, will go ahead and increase her Atorvastatin to 40 mg QD today Will have her recheck her labs and fasting lipids in 4 months for follow up (2) Elevated blood pressure reading: Code(s): R03.0 - Elevated blood-pressure reading, without diagnosis of hypertension Category: Medical Plan: Reinforced low sodium diet Her blood pressure has been better controlled lately She is reminded to continue monitoring her blood pressure regularly (3) Impaired fasting glucose: Code(s): R73.01 - Impaired fasting glucose Category: Medical Plan: Her FBS is again elevated at 128 mg/dl and her HgbA1c has gone up to 5.9% on her labs done a few weeks ago - she is advised that this again places her in the borderline diabetes range Reinforced low calorie diet/exercise as tolerated Will recheck her FBS and HgbA1c in 4 months for follow up (4) Vitamin D deficiency: Code(s): E55.9 - Vitamin D deficiency, unspecified Category: Medical Plan: She is advised that her Vitamin D level is still slightly lower than normal - to continue taking her Vitamin D3 1000 units QD (5) Lumbar spondylosis: Code(s): M47.816 - Spondylosis without myelopathy or radiculopathy, lumbar region Category: Medical Plan: Reinforced activity and weight-lifting restrictions X-rays done a couple of years ago showed (+) mild lumbar spondylosis; repeat x-rays done in November 2022 revealed (+) mild to moderate thoracolumbar spondylosis Patient takes OTC Tylenol and/or Ibuprofen 600 mg TID as needed (Rx refilled) with (+) relief of her low back pain; may also continue with warm compresses PRN for symptomatic relief She was referred to physical therapy, per her request, at her last visit but it does not appear that she went to physical therapy at all since (6) Degenerative joint disease of thoracic spine: Comment: Thoracic spine x-rays done a couple of days ago showed (+) mild levoscoliosis and mild to moderate multilevel degenerative disc disease Code(s): M47.814 - Spondylosis without myelopathy or radiculopathy, thoracic region Category: Medical Qualifiers: Spinal osteoarthritis complication: without myelopathy or radiculopathy Qualified Code(s): M47.814 - Spondylosis without myelopathy or radiculopathy, thoracic region Plan: Reinforced activity and weight lifting restrictions to minimize aggravating her back pain Repeat thoracic spine x-rays done last November 2022 revealed (+) multi-level moderate to marked thoracic spondylosis and mild thoracolumbar levoscoliosis Can consider referring her to physical therapy if her back pain progresses (7) Bilateral primary osteoarthritis of knee: Code(s): M17.0 - Bilateral primary osteoarthritis of knee Category: Medical Plan: Left knee x-rays done last November 2022 revealed (+) OA changes Have advised her again that we can refer her to orthopedics if her knee symptoms get worse - patient will call for referral when she feels it is time to see orthopedics (8) Shoulder pain: Code(s): M25.519 - Pain in unspecified shoulder Category: Medical Qualifiers: Chronicity: unspecified Laterality: bilateral Qualified Code(s): M25.511 - Pain in right shoulder; M25.512 - Pain in left shoulder Plan: X-rays of both shoulders done last November 2022 also revealed (+) OA changes She has been referred to rheumatology for further evaluation and management of her diffuse arthralgias and joint pains received a cortisone injection into her shoulder, which she feels helped somewhat Due to increasing left shoulder pain, she requested to have x-rays done again on her left shoulder but there is still no report available for review on her x-rays done last month at this time Will try to reach out to radiology and have her shoulder x-ray reading expedited Per request, will start her on Naproxen 500 mg BID with food PRN for pain as she states that Ibuprofen has not been doing much for her (9) Insomnia: Code(s): G47.00 - Insomnia, unspecified Category: Medical Qualifiers: Insomnia type: unspecified Qualified Code(s): G47.00 - Insomnia, unspecified Plan: Sleep hygiene reinforced Continue Trazodone 50 mg daily and OTC Melatonin 10 mg daily at bedtime (10) Depression: Code(s): F32.9 - Major depressive disorder, single episode, unspecified Category: Medical Qualifiers: Depression Type: unspecified Qualified Code(s): F32.9 - Major depressive disorder, single episode, unspecified Plan: Continue Sertraline 100 mg QD Follow-up with Psychiatry as scheduled (11) Obesity (BMI 30-39.9): Code(s): E66.9 - Obesity, unspecified Category: Medical Plan: Reinforced diet/exercise as tolerated/lose weight Plan As requested, flu vaccine given to patient today Follow up in 4 months Orders: Orders Influenza [id number] Immunization Today Z23 - Encounter for immunization Lipid Panel 4 Months E78.00 - Pure hypercholesterolemia, unspecified TSH reflex Free T4 4 Months E78.00 - Pure hypercholesterolemia, unspecified Vitamin D 25-OH Total 4 Months E55.9 - Vitamin D deficiency, unspecified Complete Blood Count Auto Diff 4 Months D64.9 - Anemia, unspecified Comprehensive Bruni. Panel Fast 4 Months E78.00 - Pure hypercholesterolemia, unspecified UA CC w/rflx Micro + Cult 4 Months R30.0 - Dysuria Hemoglobin A1c 4 Months R73.01 - Impaired fasting glucose Medications: New naproxen Take with food only as needed 500 mg PO BID PRN 60 tabs 0RF pain Changed From atorvastatin 20 mg PO QPM 90 days 90 tabs 1RF To atorvastatin 40 mg PO QPM 90 days 90 tabs 1RF
== END 2024-01-12 10:29 | disposition home or self-care (01) ==
LOC: HO.HMCH 09:53
PROVIDERS: PCP Internal Medicine; Visit Provider Internal Medicine
DX: E78.00 Pure hypercholesterolemia, unspecified (principal); R03.0 Elevated blood-pressure reading, without diagnosis of hypertension; R73.01 Impaired fasting glucose; E55.9 Vitamin D deficiency, unspecified; M47.816 Spondylosis without myelopathy or radiculopathy, lumbar region; M47.814 Spondylosis without myelopathy or radiculopathy, thoracic region; M17.0 Bilateral primary osteoarthritis of knee; M25.511 Pain in right shoulder; M25.512 Pain in left shoulder; G47.00 Insomnia, unspecified; F32.9 Major depressive disorder, single episode, unspecified; E66.9 Obesity, unspecified

== ENCOUNTER → 2024-01-12 09:52 | Outpatient (BNVA) | payer OTHER, SELFPAY | PROVIDERS: PCP Internal Medicine; Visit Provider Internal Medicine | DX: E78.00 Pure hypercholesterolemia, unspecified (principal); R03.0 Elevated blood-pressure reading, without diagnosis of hypertension; E55.9 Vitamin D deficiency, unspecified; M47.816 Spondylosis without myelopathy or radiculopathy, lumbar region; M47.814 Spondylosis without myelopathy or radiculopathy, thoracic region; M17.0 Bilateral primary osteoarthritis of knee; M25.511 Pain in right shoulder; M25.512 Pain in left shoulder; G47.00 Insomnia, unspecified; F32.9 Major depressive disorder, single episode, unspecified; E66.9 Obesity, unspecified | CPT/HCPCS: 90471; 90656; 96127; 99212 ==

== ENCOUNTER 2024-05-16 08:20 | Outpatient (REF) | payer OTHER, SELFPAY ==
[2024-05-16 10:02] LABS: MANUAL DIFF FLAG NO
[2024-05-16 10:49] LABS: Basophils Percent Auto 0.3 % (0-2); Eosinophils Percent Auto 0.3 % (0-4); Hematocrit 38.3 % (37.0-47.0); Hemoglobin 12.7 g/dl (12.0-16.0); Imm Gran Abs Auto 0.03 X10*3/uL (0.00-0.03); Imm Gran Pct Auto 0.3 % (0.0-0.4); Lymphocytes Absolute Auto 1.8 X10*3/uL (1.2-4.9); Lymphocytes Percent Auto 20.3 % (20-40); Mean Corpuscular HGB Conc 33.2 g/dl (31.0-35.0); Mean Corpuscular Hemoglobin 30.6 pg (27.0-33.0); Mean Corpuscular Volume 92.3 fL (80.0-98.0); Mean Platelet Volume 9.6 fL (9.4-12.3); Monocytes Absolute Auto 0.6 X10*3/uL (0.1-1.2); Monocytes Percent Auto 6.5 % (2-11); Neutrophils Absolute Auto 6.4 x10*3/uL (2.0-8.3); Neutrophils Percent Auto 72.3 % (45-73); Platelet Count 334 X10*3/uL (160-400); Red Blood Count 4.15 X10*6/uL (4.20-5.50); Red Cell Distribution Width 13.4 % (11.0-16.0); White Blood Count 8.9 X10*3/uL (4.8-10.8)
--- OUTSIDE RECORDS SUMMARY | 2024-05-16 10:55 | XMS_ITS | Encounter Summary ---
Author Organization [employer] Address [address] [facility] [address] [place] [address] Care Team Providers Care Yarding Engineer Name Role Phone Unavailable Primary Care Provider Unavailabl e Encounter Details Date Type Department Care Team (Latest Contact Info) Description 04/25/2020 Abstract [facility] CONVERSIONS Dental, Provider, DDS Social History Tobacco [...]
--- OUTSIDE RECORDS SUMMARY | 2024-05-16 10:55 | XMS_ITS | Clinical Summary ---
Author Organization [employer] Address [address] [facility] [address] [place] [address] Care Team Providers Care Psychosocial Rehabilitation Counselor Name Role Phone Unavailable Primary Care Provider [...] 11/25/2023 Severe dental caries 11/25/2023 Fractured dental druze with loss of materi al 11/25/2023 Social [...]
[2024-05-16 11:10] LABS: Estimated Average Glucose 128 mg/dL; Hemoglobin A1c % 6.1 % (<6.0)
[2024-05-16 11:24] LABS: Appearance Urine Cloudy; Color Urine Yellow; Glucose Urine UA Negative (Negative); Leukocyte Esterase Urine Moderate (2+) (Negative); Nitrite Urine Negative (Negative); PH 8.5 (5.0-9.0); UMIC TRIGGER UACC YES; Urine Blood Trace (Negative); Urine Ketones Negative (Negative); Urine Protein Trace mg/dL (Neg-Trace)
[2024-05-16 11:34] LABS: Bacteria Urine 3+ (None Seen); Hyaline Casts Urine 0-2 /LPF (0-2); RBC Urine 0-2 /HPF (0-2); Squamous Epithelial Cell Urine >20 /HPF (0-2); UACC Culture Trigger YES
[2024-05-16 12:23] LABS: Alanine Aminotransferase 18 U/L (0-31); Albumin Level 4.1 g/dL (3.5-5.0); Alkaline Phosphatase 91 U/L (39-117); Anion Gap 12 (12-20); Aspartate Amino Transferase 25 U/L (5-31); Bilirubin Total 0.4 mg/dL (0.0-1.0); Blood Urea Nitrogen 10 mg/dL (9-16); Calcium 9.3 mg/dL (8.4-10.2); Carbon Dioxide 26 mmol/L (22-29); Chloride 108 mmol/L (96-108); Cholesterol 180 mg/dL (<200); Estimated Glomerular Filt Rate > 60; Glucose Fasting 114 mg/dL (60-99); HDL Cholesterol 56 mg/dL (>40); LDL Cholesterol Calculated 103 mg/dL (<100); Potassium 4.2 mmol/L (3.3-5.1); Sodium 142 mmol/L (135-145); TSH reflex Free T4 2.01 uIU/mL (0.32-4.0); Total Protein 8.3 g/dL (6.5-8.0); Triglycerides 105 mg/dL (<150); Vitamin D 25-OH Total 30.7 ng/mL (>30)
== END 2024-05-16 08:21 | disposition home or self-care (01) ==
LOC: HO.LAB 08:20
PROVIDERS: Absent Provider Internal Medicine; PCP Internal Medicine
DX: E55.9 Vitamin D deficiency, unspecified (principal); D64.9 Anemia, unspecified; E78.00 Pure hypercholesterolemia, unspecified; R73.01 Impaired fasting glucose; E66.9 Obesity, unspecified; M25.512 Pain in left shoulder; G89.29 Other chronic pain; M54.6 Pain in thoracic spine; M41.85 Other forms of scoliosis, thoracolumbar region; M17.0 Bilateral primary osteoarthritis of knee; J45.909 Unspecified asthma, uncomplicated; F51.01 Primary insomnia; M47.816 Spondylosis without myelopathy or radiculopathy, lumbar region; R03.0 Elevated blood-pressure reading, without diagnosis of hypertension; R82.90 Unspecified abnormal findings in urine; Z71.3 Dietary counseling and surveillance
CPT/HCPCS: 36415; 80053; 80061; 81001; 82306; 83036; 84443; 85025; 87086; 96127; 99212

== ENCOUNTER 2024-05-16 08:20 | Outpatient (AMB) | payer OTHER, SELFPAY ==
[2024-05-16 08:21] VITALS: BP 124/76; PULSE 88; TEMP 37.4; O2SAT 98; BMI 38.4
--- NOTE | 2024-05-16 08:21 | A.OFFPC_ITS ---
Vital Signs 05/16/24 08:21 Height 5 ft Weight 196 lb 9.6 oz BMI 38.4 BP 124/76 Blood Pressure Location Lt brachial Position Sitting Pulse 88 Pulse Source Pulse Oximeter Temp 99.4 F Temp Source Oral Pulse Oximetry (%) 98 Oxygen Delivery Method Room Air Intake Visit Reasons: 4 month follow up Paver Operator Required: Yes Paver Operator Language: Helmet Hat Brim Cutter Name: Used tablet- Nhung [id number] Accompanied by: Self / Same As Patient Allergies Penicillins [PENICILLINS] Allergy (Intermediate, Verified 05/16/24 08:31) RASH/ITCHING Medication List - Last Reconciled 05/20/24 by YARON Cullen acetaminophen ER 650 mg PO Q8H PRN 30 days albuterol sulfate 90 mcg/actuation (ProAir HFA) 2 puffs inhalation Q6H PRN 30 days atorvastatin 40 mg PO QPM 90 days buspirone 5 mg PO BID calcium acetate(phosphat bind) 667 mg PO TID capsaicin 0.1% (Arthritis Pain Relief (capsaicin)) 1 appl topical BID cholecalciferol (vitamin D3) 25 mcg PO DAILY 90 days hydroxyzine pamoate 50 mg PO BID PRN meloxicam 15 mg PO DAILY 60 days nebulizers (Compact Compressor Nebulizer) As directed sertraline 100 mg PO DAILY trazodone 50 mg PO DAILY Tobacco use date assessed: 05/16/24 Dental Screening Dental Screen Date: 05/16/24 Did you have a dental visit in the last 12 months?: Yes Did you have a dental problem in the last 6 months where you did not have access to dental care?: No Was dental information given to patient?: Patient has dentist HPI 4 month follow up HPI Details The patient is a 58-year-old female who presenting for follow up evaluation of chronic conditions Patient was unable to complete ordered labs-reports that she has not eaten yet and will get them done after this appointment Pain reports that her left shoulder pain/decreased range of motion has been ongoing. She will be seeing Orthopedics on 06/23/2024 but would like something to help her with the pain until then. Patient reports that her current treatment is not helping Patient is currently taking naproxen 500 mg b.i.d. p.r.n. and diclofenac sodium 1% topical q.i.d. We will try the patient on meloxicam 15 mg and capsaicin 0.1% topical b.i.d. Patient denies shortness of breath, chest pain, heart palpitation, or dizziness Denies any change in her bowel habits or urinary symptoms PFSH Medical History Chronic thoracic back pain Levoscoliosis of thoracolumbar spine Bilateral primary osteoarthritis of knee Osteoarthritis of shoulders, bilateral Calcific tendinitis of left shoulder region Chest wall abscess Obesity (BMI 30-39.9) Degenerative joint disease of thoracic spine Depression Primary insomnia Lumbar spondylosis Vitamin D deficiency Impaired fasting glucose Pure hypercholesterolemia Elevated blood pressure reading JENNIFER I (cervical intraepithelial neoplasia I) Insomnia Asthma Hyperlipemia Surgical History History of varicose veins Family History Father Cancer Hypertension Bladder cancer Mother Hypertension Diabetes Uterine cancer Maternal Grandmother No problems noted. Sister No problems noted. Social History Household Members Other:: Son Housing: Apartment Alcohol intake: never Patient Tobacco Use Status: Never used Tobacco e-Cigarette/Vaping Use: Never Used Second Hand Smoke Exposure: No service: No Current occupational status: disabled Cognitive needs: No Hearing needs: No Vision needs: No Female Reproductive History Menstrual Age of Menarche: 14 Questionnaire PHQ-9 Over the last 2 weeks, how often have you been bothered by any of the following problems? 1. Little interest or pleasure in doing things: not at all 2. Feeling down, depressed, or hopeless: not at all 3. Trouble falling or staying asleep, or sleeping too much: not at all 4. Feeling tired or having little energy: not at all 5. Poor appetite or overeating: not at all 6. Feeling bad about yourself - or that you are a failure or have let yourself or your family down: not at all 7. Trouble concentrating on things, such as reading the newspaper or watching television: not at all 8. Moving or speaking so slowly that other people could have noticed. Or the opposite - being so fidgety or restless that you have been moving around a lot more than usual: not at all 9. Thoughts that you would be better off or of hurting yourself in some way: not at all Total score: 0 Depression Screening Interpretation: Negative Depression Screening Done: Yes 00199 - PHQ-9 Billing: Yes Source: Developed by Drs. Yves Lam, María Alfred, Negrito Mcguire and colleagues, with an educational terri from [employer]. Thrive Questionnaire Date Thrive assessed: 05/16/24 I am a: Patient What is your living situation today?: I have a steady place to live Within the past 12 months, did the food you bought not last and you didn't have the money to get more?: Never true Within the past 12 months, did you worry whether your food would run out before you got money to buy more?: Never true Do you have trouble paying for medicines?: No Do you have trouble getting transportation to medical appointments?: No Do you have trouble paying your heating and electricity bill?: No Do you have trouble taking care of your child, family member or friend?: No Do you have trouble with day-to-day activities such as bathing, preparing meals, shopping, managing finances, etc.?: No Are you currently unemployed and looking for a job?: No Are you interested in more education?: No Please select the resources that you would like help with: None Currently or been in a relationship where the following occur: No concerns reported THRIVE Score: 0 AUDIT C Alcohol Use Questionnaire (AUDIT-C) 1. How often do you have a drink containing alcohol?: Never 3. How often do you have six or more drinks on one occasion?: Never Total Score: 0 Score Reviewed/Action Taken: Yes EZ-7 AMB Questionnaire EZ-7 Date EZ - 7 assessed: 05/16/24 Feeling nervous, anxious, or on edge: 1 = Several days Not being able to stop or control worryin = Several days Worrying too much about different things: 2 = More than half the days Trouble relaxin = Not at all Being so restless that it is hard to sit still: 1 = Several days Becoming easily annoyed or irritable: 0 = Not at all Feeling afraid as if something awful might happen: 0 = Not at all Total EZ-7 score (0-4 normal; 5-9 mild; 10-14 moderate; 15-21 severe): 5 Source: Developed by Drs. Yves Lam, María Alfred, Negrito Mcguire and colleagues, with an educational terri from [employer]. EZ-7 Assessment Billing EZ-7 Assessment Tool: EZ-7 Assessment 71207 Review of Systems Const Denies headache(s) Eyes Denies loss of vision ENT Denies vertigo, Denies dizziness, Denies headache(s) and Denies sore throat Card Denies chest pain, Denies leg edema and Denies lightheadedness Resp Denies cough, Denies hemoptysis and Denies wheezing GI Denies abdominal pain, Denies melena, Denies constipation, Denies diarrhea and Denies vomiting Denies urinary frequency, Denies dysuria and Denies urinary urgency Musc Reports back pain (lower back pain), Reports arthralgias (left shoulder and bilateral knee), Denies joint swelling, Reports limited range of motion (decreased ROM in left shoulder), Denies numbness, Reports stiffness (cervical region) and Denies tingling Neuro Denies Abnormal speech present, Denies behavioral changes, Denies vertigo, Denies dizziness, Denies headache(s), Denies loss of vision, Denies memory loss, Denies numbness and Denies tingling Psych Denies anxiety, Denies behavioral changes, Denies depression, Denies memory loss and Denies panic attacks Yosi/Lymph Denies easy bleeding and Denies easy bruising Aller/Immun Denies wheezing Physical exam (Primary Care) Vital Signs: Last Vital Signs Temp 99.4 F 05/16/24 08:21 Pulse 88 05/16/24 08:21 BP 124/76 05/16/24 08:21 Pulse Ox 98 05/16/24 08:21 Oxygen Delivery Method Room Air 05/16/24 08:21 BMI result Body Mass Index 38.4 Tobacco/Smoking Status: Tobacco use Status Tobacco use date assessed 05/16/24 05/16/24 08:25 Patient Tobacco Use Status Never used Tobacco 05/16/24 08:25 e-Cigarette/Vaping Use Never Used 05/16/24 08:25 PHQ-9: PHQ-9 Score PHQ-9: Total score 0 05/16/24 09:09 Depression Screening Interpretation: Negative Thrive Assessment: Date of Thrive Assessment Date Thrive assessed 05/16/24 05/16/24 08:25 Currently or been in a relationship where the following occur: No concerns reported Const General: healthy appearing, no acute distress, alert and awake Nutritional Appearance: well nourished Orientation/consciousness: oriented to person, oriented to place and oriented to time HENMT Ears: TM's normal bilaterally General nose exam: Normal nasal mucous membranes and turbinates present Eyes Conjunctivae: conjunctivae normal Sclerae: sclerae normal Pupils: Equal, round and reactive pupils present Neck Neck: Yes no lymphadenopathy and Yes no JVD Thyroid: Thyroid normal Carotids: no bruits Resp Effort & Inspection: normal respiratory effort and not tachypneic Auscultation: no crackles, no rales, no rhonchi and no wheezes Cardio Rate: regular rate Rhythm: regular rhythm Heart sounds: no murmurs and normal S1 and S2 GI Palpation (GI): Soft to palpation, nontender, no hepatomegaly and no splenomegaly Auscultation: normal bowel sounds General: Yes no CVA tenderness Back/Spine/Pelvis Back: no CVA tenderness Cervical Spine: No Cervical spine tenderness Thoracic/Lumbar Spine: lumbar spinal tenderness Skin General skin exam: no rashes or lesions noted and dry skin Neuro General: oriented to person, oriented to place and oriented to time Cranial nerves: Yes Equal, round and reactive pupils present Speech: No Abnormal speech present Gait exam (Neuro): Normal gait present Motor exam (neuro): no tremor noted Extrem General: Yes no pedal edema and Yes no calf tenderness Right upper extremity: full ROM and shoulder/upper arm Details: normal ROM; no tenderness and no swelling Left upper extremity: full ROM and shoulder/upper arm Details: tenderness and abnormal ROM; no swelling and no crepitus Right lower extremity: full ROM and knee Details: no tenderness and no swelling; no edema Left lower extremity: full ROM and knee Details: no tenderness and no swelling; no edema Psych Mental Status: mental status grossly normal Speech and movement: Normal speech and movement present Affect: normal affect Attitude: cooperative Thought process: Normal thought process present Coding Level of Care Code Est Pt Level 4 (16965) Diagnoses Chronic left shoulder pain M25.512; G89.29 Chronicity: chronic Chronic bilateral thoracic back pain M54.6; G89.29 Back pain laterality: bilateral Levoscoliosis of thoracolumbar spine M41.85 Bilateral primary osteoarthritis of knee M17.0 Asthma, unspecified asthma severity, unspecified whether complicated, unspe cified whether persistent J45.909 Asthma severity: unspecified severity Asthma persistence: unspecified Asthma complication type: unspecified Obesity (BMI 30-39.9) E66.9 Primary insomnia F51.01 Lumbar spondylosis M47.816 Vitamin D deficiency E55.9 Pure hypercholesterolemia E78.00 Elevated blood pressure reading R03.0 Additional Codes EZ-7 Assessment Billing - EZ-7 Assessment Tool: EZ-7 Assessment 87139 ([id number]) PHQ-9 - 09602 - PHQ-9 Billing: Yes ([id number]) Time Spent (min) 38 Assessment & Plan Assessment & Plan (1) Left shoulder pain: Code(s): M25.512 - Pain in left shoulder Category: Medical Qualifiers: Chronicity: chronic Qualified Code(s): M25.512 - Pain in left shoulder; G89.29 - Other chronic pain Plan: Pain reports that her left shoulder pain/decreased range of motion has been ongoing. She has seen Orthopedics on 06/23/2024 but would like something to help her with the pain until that. Patient reports that her current treatment is not helping Patient is currently taking naproxen 500 mg b.i.d. p.r.n. and diclofenac sodium 1% topical q.i.d. We will try the patient on meloxicam 15 mg and capsaicin 0.1% topical b.i.d. (2) Chronic thoracic back pain: Comment: She as marked Levoscoliosis. Code(s): M54.6 - Pain in thoracic spine; G89.29 - Other chronic pain Category: Medical Qualifiers: Back pain laterality: bilateral Qualified Code(s): M54.6 - Pain in thoracic spine; G89.29 - Other chronic pain Plan: Avoid bed rest (including sitting in bed) and to simply limit painful activities; improvement usually occurs within a few weeks May use cool packs; may alternate cold and hot packs Exercises a bo (e.g., walking, swimming, cycling) as soon as possible, starting with 5-10 min and walk-in up to 20-30 minute q.day Abdominal core and back strengthening exercises may help to prevent future problems Continue meloxicam 15 mg daily and capsaicin 0.1 % topical BID (3) Levoscoliosis of thoracolumbar spine: Code(s): M41.85 - Other forms of scoliosis, thoracolumbar region Category: Medical Plan: Reinforced activity and weight-lifting restrictions Avoid aggravating activities that worsens symptoms Balance activity with rest to allow the spine to heal Apply heat or cold pack to reduce pain and inflammation continue acetaminophen ER 650 Q 8 p.r.n., capsaicin 0.1% topical b.i.d., meloxicam 15 mg daily (4) Bilateral primary osteoarthritis of knee: Code(s): M17.0 - Bilateral primary osteoarthritis of knee Category: Medical Plan: May use NSAIDs (meloxicam 15 mg and capsaicin 0.1% b.i.d.) and decreased knee stress until improvement is seen with quad strengthening exercises Consider PT if no improvement after 3-4 weeks (5) Asthma: Code(s): J45.909 - Unspecified asthma, uncomplicated Category: Medical Qualifiers: Asthma severity: unspecified severity Asthma persistence: unspecified Asthma complication type: unspecified Qualified Code(s): J45.909 - Unspecified asthma, uncomplicated Plan: Lifestyle modifications like smoking cessation. Wear a mask when around irritants, fumes, or particulate matter (e.g., painting, lawn mowing). Increase humidification at home, especially in the winter. Annual flu shots and the pneumonia shot can mitigate exacerbation. Increase fluids if not contraindicated because of heart failure Continue albuterol sulfate 90 mcg/actuation 2 puffs inhalation q.6H P.R.N. (6) Obesity (BMI 30-39.9): Code(s): E66.9 - Obesity, unspecified Category: Medical Plan: Discussed macronutrients and cutting simple and flour based carbs from the diet and increasing vegetables and good proteins and fats. Discussed exercising 3-5 days a week for at least 30 minutes to help boost metabolism and maintain strong muscles to maintain weight. (7) Primary insomnia: Code(s): F51.01 - Primary insomnia Category: Medical Plan: Sleep hygiene: Exercise regularly, but not within 4 hour of bedtime. Limit fluid intake and avoid large meals in the evening hours. Limit overall caf feine, tobacco, and alcohol intake; no night cap. Maintain a regular sleep- wake cycle without naps in the daytime. Lie down to sleep only when feeling sleepy; leave the bed if unable to fall asleep within 20 minutes; stay in bed for only the hours actually sleeping(but not less than 5 hour in 24 hours). Continue trazodone 50 mg daily (8) Lumbar spondylosis: Code(s): M47.816 - Spondylosis without myelopathy or radiculopathy, lumbar region Category: Medical Plan: Reinforced activity and weight-lifting restrictions Avoid aggravating activities that worsens symptoms Balance activity with rest to allow the spine to heal Apply heat or cold pack to reduce pain and inflammation Continue meloxicam 15 mg daily, capsaicin 0.1% topical b.i.d. (9) Vitamin D deficiency: Code(s): E55.9 - Vitamin D deficiency, unspecified Category: Medical Plan: Corporate vitamin-D rich foods. Safe and appropriate exposure to sunlight can also help the body. He was vitamin-D Continue cholecalciferol 25 mcg daily (10) Pure hypercholesterolemia: Code(s): E78.00 - Pure hypercholesterolemia, unspecified Category: Medical Plan: Encouraged to exercise for at least 30 minutes a day/5 days a week Healthy eating discussed. Encouraged to eat fruits/vegetables, protein- fish/baked chicken, and to avoid salty/fried foods, sweets, caffeine and carbohydrates. Encouraged to increase water intake 6-8 glasses a day Continue atorvastatin 40 mg q.p.m. (11) Elevated blood pressure reading: Code(s): R03.0 - Elevated blood-pressure reading, without diagnosis of hypertension Category: Medical Plan: Blood pressure within goal in office Encouraged DASH diet and activity as tolerated. Refrain from alcohol use and if you smoke, smoking cessation is advised Orders: Orders UA CC w/rflx Micro + Cult 4 Months E55.9 - Vitamin D deficiency, unspecified, E66.9 - Obesity, unspecified, F32.9 - Major depressive disorder, single episode, unspecified, J45.909 - Unspecified asthma, uncomplicated, M17.0 - Bilateral primary osteoarthritis of knee, M19.011 - Primary osteoarthritis, right shoulder, M19.012 - Primary osteoarthritis, left shoulder, M47.814 - Spondylosis without myelopathy or radiculopathy, thoracic region, R03.0 - Elevated blood- pressure reading, without diagnosis of hypertension, R73.01 - Impaired fasting glucose, Z00.00 - Encounter for general adult medical examination without abnormal findings TSH reflex Free T4 4 Months E55.9 - Vitamin D deficiency, unspecified, E66.9 - Obesity, unspecified, F32.9 - Major depressive disorder, single episode, unspecified, J45.909 - Unspecified asthma, uncomplicated, M17.0 - Bilateral primary osteoarthritis of knee, M19.011 - Primary osteoarthritis, right shoulder, M19.012 - Primary osteoarthritis, left shoulder, M47.814 - Spondylosis without myelopathy or radiculopathy, thoracic region, R03.0 - Elevated blood- pressure reading, without diagnosis of hypertension, R73.01 - Impaired fasting glucose, Z00.00 - Encounter for general adult medical examination without abnormal findings Complete Blood Count Auto Diff 4 Months E55.9 - Vitamin D deficiency, unspecified, E66.9 - Obesity, unspecified, F32.9 - Major depressive disorder, single episode, unspecified, J45.909 - Unspecified asthma, uncomplicated, M17.0 - Bilateral primary osteoarthritis of knee, M19.011 - Primary osteoarthritis, right shoulder, M19.012 - Primary osteoarthritis, left shoulder, M47.814 - Spondylosis without myelopathy or radiculopathy, thoracic region, R03.0 - Elevated blood-pressure reading, without diagnosis of hypertension, R73.01 - Impaired fasting glucose, Z00.00 - Encounter for general adult medical examination without abnormal findings Comprehensive [place]. Panel Fast 4 Months E55.9 - Vitamin D deficiency, unspecified, E66.9 - Obesity, unspecified, F32.9 - Major depressive disorder, single episode, unspecified, J45.909 - Unspecified asthma, uncomplicated, M17.0 - Bilateral primary osteoarthritis of knee, M19.011 - Primary osteoarthritis, right shoulder, M19.012 - Primary osteoarthritis, left shoulder, M47.814 - Spondylosis without myelopathy or radiculopathy, thoracic region, R03.0 - Elevated blood-pressure reading, without diagnosis of hypertension, R73.01 - I mpaired fasting glucose, Z00.00 - Encounter for general adult medical examination without abnormal findings Lipid Panel 4 Months E55.9 - Vitamin D deficiency, unspecified, E66.9 - Obesity, unspecified, F32.9 - Major depressive disorder, single episode, unspecified, J45.909 - Unspecified asthma, uncomplicated, M17.0 - Bilateral primary osteoarthritis of knee, M19.011 - Primary osteoarthritis, right shoulder, M19.012 - Primary osteoarthritis, left shoulder, M47.814 - Spondylosis without myelopathy or radiculopathy, thoracic region, R03.0 - Elevated blood- pressure reading, without diagnosis of hypertension, R73.01 - Impaired fasting glucose, Z00.00 - Encounter for general adult medical examination without abnormal findings Vitamin D 25-OH Total 4 Months E55.9 - Vitamin D deficiency, unspecified, E66.9 - Obesity, unspecified, F32.9 - Major depressive disorder, single episode, unspecified, J45.909 - Unspecified asthma, uncomplicated, M17.0 - Bilateral primary osteoarthritis of knee, M19.011 - Primary osteoarthritis, right shoulder, M19.012 - Primary osteoarthritis, left shoulder, M47.814 - Spondylosis without myelopathy or radiculopathy, thoracic region, R03.0 - Elevated blood- pressure reading, without diagnosis of hypertension, R73.01 - Impaired fasting glucose, Z00.00 - Encounter for general adult medical examination without ab normal findings Glucose Fasting 4 Months E55.9 - Vitamin D deficiency, unspecified, E66.9 - Obesity, unspecified, F32.9 - Major depressive disorder, single episode, unspecified, J45.909 - Unspecified asthma, uncomplicated, M17.0 - Bilateral primary osteoarthritis of knee, M19.011 - Primary osteoarthritis, right shoulder, M19.012 - Primary osteoarthritis, left shoulder, M47.814 - Spondylosis without myelopathy or radiculopathy, thoracic region, R03.0 - Elevated blood- pressure reading, without diagnosis of hypertension, R73.01 - Impaired fasting glucose, Z00.00 - Encounter for general adult medical examination without abnormal findings Medications: New capsaicin 0.1% (Arthritis Pain Relief (capsaicin)) do not wash area for at least 30 min after application 1 appl topical BID 56.6 grams 0RF M19.011 - Primary osteoarthritis, right shoulder, M19.012 - Primary osteoarthritis, left shoulder meloxicam 15 mg PO DAILY 60 days 60 tabs 3RF M19.011 - Primary osteoarthritis, right shoulder, M19.012 - Primary osteoarthritis, left shoulder Discontinued naproxen Take with food only as needed Discontinued Reason: Doctor's Order 500 mg PO BID PRN 60 tabs 0RF pain
--- OUTSIDE RECORDS SUMMARY | 2024-05-16 08:54 | XMS_ITS | Clinical Summary ---
Author Organization [employer] Address [address] [facility] [address] [place] [address] Care Team Providers Care Repairer Screen Crusher Name Role Phone Unavailable Primary Care Provider Unavailabl e Allergies Active Allergy Reactions Criticality Noted Date Comments Penicillins Rash Low 01/05/2014 Medications Albuterol Sulfate (ProAir RespiClick) 108 (90 Base) MCG/ACT aerosol powder Inhale 2 puffs every 4 (four) hours. Active atorvastatin (Lipitor) 20 MG tablet Take 20 mg by mouth at bedtime. Active cholecalciferol (Vitamin D-3) 25 MCG (1000 UT) capsule Take 25 mcg by mouth Once per day. 4 Active traZODone (Desyrel) 50 MG tablet 4 Active hydrOXYzine pamoate (Vistaril) 50 MG capsule 4 Active clotrimazole-be tamethasone (Lotrisone) cream APPLY TOPICALLY TO THE AFFECTED AREA TWICE DAILY FOR 5 DAYS 4 Active cyclobenzaprine (Flexeril) 10 MG tablet 4 Active sertraline (Zoloft) 100 MG tablet 4 Active Active Problems Problem Noted Date Diagnosed Date Active non-cavitated caries of root of tooth Missing teeth, acquired 11/25/2023 Severe dental caries 11/25/2023 Fractured dental nondenominational with loss of materi al 11/25/2023 Social History Tobacco Use Types Packs/Day Years Used Date Smoking Tobacco: Never Smokeless Tobacco: Never Tobacco Cessation:Counseling Given: Not Answered Alcohol Use Standard Drinks/Week Comments Never 0 (1 standard drink = 0.6 oz pur e alcohol) Comments Unknown Sex and Gender Information Value Date Recorded Sex Assigned at Female 01/05/2022 10:18 AM EDT Legal Sex Female 10:18 AM EDT Gender Identity Female 01/05/2022 10:18 AM EDT Sexual Orientation Straight 01/05/2022 10 :18 AM EDT Last Filed Vital Signs Vital Sign Reading Time Taken Comments Blood Pressure 122/84 01/04/2024 1:03 PM EDT Pulse 70 03/22/2019 12:01 AM EST Temperature - - Respiratory Rate - - Oxygen Saturation - - Inhaled Oxygen Concentration - - Weight - - Height - - Body Mass Index - - Plan of Treatment Health Maintenance Due Date Last Done Comments CT Colonography 1965 Colonoscopy 1965 Colorectal Cancer Screening 1965 Depression Screening 1965 FIT DNA/Cologuard 1965 FIT 1965 FOBT 1965 HIV Screening 1965 SDOH Screening 1965 Sigmoidoscopy 1965 Alcohol/Substance Use Screening 1977 Hepatitis C Screening 12/23/1983 DTaP/Tdap/Td Vaccines (1 - Tdap) 1984 Hepatitis B Vaccines (1 of 3 - 19+ 3-dose series) 1984 Pap Smear 1986 Cervical Cancer Screening 12/23/1995 HPV/Cotest 12/23/1995 Mammogram 2005 Pneumococcal Vaccine: 50+ Years (1 of 1 - PCV) 12/23/2015 Zoster Vaccines (1 of 2) 12/23/2015 COVID-19 Vaccine (1 - season) 2023 Influenza Vaccine (#1) 2023 01/16/2015 Dental Oral Exam 07/05/2024 01/04/2024, , 06/28/2018, Additional history exists Dental Prophylaxis 07/05/2024 01/04/2024, 0 04/25/2020, 03/22/2019, Additional history exists Tobacco Screening 01/03/2025 01/04/2024 Dental X-Ray: Bitewings 01/04/2025 01/04/20 24, 11/24/2023, 04/25/2020, Additional history exists Dental X-Ray: Full Mouth 01/04/2027 024, 07/30/2017, 01/05/2014 RSV Patients and Patients Aged 60 years or older (1 - 1-dose 75+ series) 2040 HIB Vaccines Aged Out No longer eligi ble based on patient's age to complete this topic HPV Vaccines Aged Out No longer eligi ble based on patient's age to complete this topic Hepatitis A Vaccines Aged Out No long er eligible based on patient's age to complete this topic IPV Vaccines Aged Out No longer eligi ble based on patient's age to complete this topic Meningococcal Vaccine Aged Out No joseph david eligible based on patient's age to complete this topic RSV under 20 months Aged Out No longe r eligible based on patient's age to complete this topic Rotavirus Vaccines Aged Out No longer eligible based on patient's age to complete this topic Procedures Procedure Name Priority Date/Time Associated Diagnosis Comments PROPHYLAXIS - ADULT Routine 01/04/2024 1 :00 PM EDT Dental plaque Dental calculus INTRAORAL - COMPLETE SERIES OF RADIOGRAPHIC IMAGES Routine 01/04/2024 1:00 PM EDT PERIODIC ORAL EVALUATION - ESTABLISHED PATIENT Routine 01/04/2024 1:00 PM EDT Dental plaque Dental calculus Encounter for dental examination Periodontal disease from Last 3 Months or Most Recently Relevant to Health Maintenance Insurance [employer]
--- OUTSIDE RECORDS SUMMARY | 2024-05-16 08:54 | XMS_ITS | Encounter Summary ---
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 Name Role Phone Unavailable Primary Care Provider Unavailabl e Encounter Details Date Type Department Care Team (Latest Contact Info) Description 04/25/2020 Abstract [facility] CONVERSIONS Dental, Provider, DDS Social History Tobacco Use Types Packs/Day Years Used Date Smoking Tobacco: Never Assessed Comments Unknown Sex and Gender Information Value Date Recorded Sex Assigned at Female 01/05/2022 10:18 AM EDT Legal Sex Female 10:18 AM EDT Gender Identity Female 01/05/2022 10:18 AM EDT Sexual Orientation Straight 01/05/2022 10 :18 AM EDT documented as of this encounter Plan of Treatment Not on file documented as of this encounter Visit Diagnoses Not on filedocumented in this encounter
== END 2024-05-16 09:24 | disposition home or self-care (01) ==
LOC: HO.HMCH 08:20
PROVIDERS: PCP Internal Medicine
DX: M25.512 Pain in left shoulder (principal); G89.29 Other chronic pain; Z68.38 Body mass index [BMI] 38.0-38.9, adult; E66.9 Obesity, unspecified; M54.6 Pain in thoracic spine; M41.85 Other forms of scoliosis, thoracolumbar region; M17.0 Bilateral primary osteoarthritis of knee; J45.909 Unspecified asthma, uncomplicated; F51.01 Primary insomnia; M47.816 Spondylosis without myelopathy or radiculopathy, lumbar region; E55.9 Vitamin D deficiency, unspecified; E78.00 Pure hypercholesterolemia, unspecified

== ENCOUNTER 2024-06-01 10:26 | Outpatient (REF) | payer OTHER, SELFPAY ==
--- NOTE | ~2024-06-01 | XR_ITS ---
EXAMINATION: XR SHOULDER, RIGHT CLINICAL INFORMATION: M25.511 - Pain in right shoulder COMPARISON: 11/16/2022. TECHNIQUE: Three views of the right shoulder. FINDINGS: Normal bone mineralization. No fracture, dislocation, or suspicious bone lesion. Normal alignment. The glenohumeral joint demonstrates moderate degenerative arthritis. The AC joint demonstrates minimal degenerative arthritis. There is a type III acromion. No undersurface spurring. The subacromial space is preserved. Remainder of the soft tissue and bony structures appear normal. XR/XR shoulder RT min 2V IMPRESSION: 1. Moderate degenerative arthritis of the glenohumeral joint. Electronically signed by: Zia Marie MD 06/01/2024 04:07 PM EDT
--- NOTE | ~2024-06-01 | XR_ITS ---
EXAMINATION: XR SHOULDER, LEFT CLINICAL INFORMATION: M25.512 - Pain in left shoulder COMPARISON: 11/16/2022. TECHNIQUE: Three views of the left shoulder. FINDINGS: Normal bone mineralization. No fracture, dislocation, or suspicious bone lesion. Normal alignment. The glenohumeral joint demonstrates moderate degenerative arthritis. The AC joint demonstrates minimal degenerative arthritis. There is a type III acromion. No undersurface spurring. The subacromial space is preserved. Mild calcification of the infraspinatus tendon. Remainder of the soft tissue and bony structures appear normal. XR/XR shoulder LT min 2V IMPRESSION: 1. Moderate osteoarthritis of the glenohumeral joint. 2. Mild calcific tendinopathy of the infraspinatus tendon Electronically signed by: Zia Marie MD 06/01/2024 04:05 PM EDT
== END 2024-06-01 10:27 | disposition home or self-care (01) ==
LOC: HO.XRAY 10:26
PROVIDERS: PCP Internal Medicine; Visit Provider Internal Medicine
DX: M25.511 Pain in right shoulder (principal); M25.512 Pain in left shoulder
CPT/HCPCS: 73030; 96127; 99212

== ENCOUNTER 2024-06-01 10:26 | Outpatient (AMB) | payer OTHER, SELFPAY ==
[2024-06-01 10:27] VITALS: BP 116/80; PULSE 82; O2SAT 98; BMI 38.7
--- NOTE | 2024-06-01 10:27 | A.OFFPC_ITS ---
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 Required: No Accompanied by: Self / Same As Patient Allergies Penicillins [PENICILLINS] Allergy (Intermediate, Verified 06/01/24 11:04) RASH/ITCHING Medication List - Last Reconciled 06/01/24 by Nathan Xavier MD acetaminophen ER 650 mg PO Q8H PRN 30 days albuterol sulfate 90 mcg/actuation (ProAir HFA) 2 puffs inhalation Q6H PRN 30 days atorvastatin 40 mg PO QPM 90 days buspirone 5 mg PO BID calcium acetate(phosphat bind) 667 mg PO TID capsaicin 0.1% (Arthritis Pain Relief (capsaicin)) 1 appl topical BID cholecalciferol (vitamin D3) 25 mcg PO DAILY 90 days hydroxyzine pamoate 50 mg PO BID PRN meloxicam 15 mg PO DAILY 60 days nebulizers (Compact Compressor Nebulizer) As directed sertraline 100 mg PO DAILY trazodone 50 mg PO DAILY Tobacco use date assessed: 06/01/24 Dental Screening Dental Screen Date: 06/01/24 Did you have a dental visit in the last 12 months?: Yes Did you have a dental problem in the last 6 months where you did not have access to dental care?: No Was dental information given to patient?: Patient has dentist HPI Shoulder pain HPI Details Patient comes in today complaining of increased pain over both her shoulders, which she states have been going on for a while now Feels that her shoulder pains have gotten worse lately, especially on the right side States that she is not really taking anything at this time for pain as she is not really sure what she can take X-rays of the left shoulder done back in December 2023 came out normal She has been referred to and has an appointment scheduled with orthopedics next month on 06/23/2024 No other acute complaints or symptoms are noted [facility] Medical History Chronic thoracic back pain Levoscoliosis of thoracolumbar spine Bilateral primary osteoarthritis of knee Osteoarthritis of shoulders, bilateral Calcific tendinitis of left shoulder region Chest wall abscess Obesity (BMI 30-39.9) Degenerative joint disease of thoracic spine Depression Primary insomnia Lumbar spondylosis Vitamin D deficiency Impaired fasting glucose Pure hypercholesterolemia Elevated blood pressure reading JENNIFER I (cervical intraepithelial neoplasia I) Insomnia Asthma Hyperlipemia Surgical History History of varicose veins Family History Father Cancer Hypertension Bladder cancer Mother Hypertension Diabetes Uterine cancer Maternal Grandmother No problems noted. Sister No problems noted. Social History Household Members Other:: Son Housing: Apartment Alcohol intake: never Patient Tobacco Use Status: Never used Tobacco e-Cigarette/Vaping Use: Never Used Second Hand Smoke Exposure: No service: No Current occupational status: disabled Cognitive needs: No Hearing needs: No Vision needs: No Female Reproductive History Menstrual Age of Menarche: 14 Questionnaire PHQ-9 Over the last 2 weeks, how often have you been bothered by any of the following problems? 1. Little interest or pleasure in doing things: not at all 2. Feeling down, depressed, or hopeless: not at all 3. Trouble falling or staying asleep, or sleeping too much: not at all 4. Feeling tired or having little energy: not at all 5. Poor appetite or overeating: not at all 6. Feeling bad about yourself - or that you are a failure or have let yourself or your family down: not at all 7. Trouble concentrating on things, such as reading the newspaper or watching television: not at all 8. Moving or speaking so slowly that other people could have noticed. Or the opposite - being so fidgety or restless that you have been moving around a lot more than usual: not at all 9. Thoughts that you would be better off or of hurting yourself in some way: not at all Total score: 0 Depression Screening Interpretation: Negative Depression Screening Done: Yes 20952 - PHQ-9 Billing: Yes Source: Developed by Drs. Yves Lam, María Alfred, Negrito Mcguire and colleagues, with an educational terri from [email or web address]. Thrive Questionnaire Date Thrive assessed: 06/01/24 I am a: Patient What is your living situation today?: I have a steady place to live Within the past 12 months, did the food you bought not last and you didn't have the money to get more?: Never true Within the past 12 months, did you worry whether your food would run out before you got money to buy more?: Never true Do you have trouble paying for medicines?: No Do you have trouble getting transportation to medical appointments?: No Do you have trouble paying your heating and electricity bill?: No Do you have trouble taking care of your child, family member or friend?: No Do you have trouble with day-to-day activities such as bathing, preparing meals, shopping, managing finances, etc.?: No Are you currently unemployed and looking for a job?: No Are you interested in more education?: No Please select the resources that you would like help with: None Currently or been in a relationship where the following occur: No concerns reported THRIVE Score: 0 AUDIT C Alcohol Use Questionnaire (AUDIT-C) 1. How often do you have a drink containing alcohol?: Never 3. How often do you have six or more drinks on one occasion?: Never Total Score: 0 Score Reviewed/Action Taken: Yes EZ-7 AMB Questionnaire EZ-7 Date EZ - 7 assessed: 06/01/24 Feeling nervous, anxious, or on edge: 1 = Several days Not being able to stop or control worryin = Several days Worrying too much about different things: 2 = More than half the days Trouble relaxin = Not at all Being so restless that it is hard to sit still: 1 = Several days Becoming easily annoyed or irritable: 0 = Not at all Feeling afraid as if something awful might happen: 0 = Not at all Total EZ-7 score (0-4 normal; 5-9 mild; 10-14 moderate; 15-21 severe): 5 Source: Developed by Drs. Yves Lam, María Alfred, Negrito Mcguire and colleagues, with an educational terri from [email or web address]. EZ-7 Assessment Billing EZ-7 Assessment Tool: EZ-7 Assessment 16546 Review of Systems Const Denies chills, Denies fatigue, Denies fever(s) and Denies headache(s) ENT Denies dysphagia, Denies dizziness, Denies otalgia, Denies headache(s), Denies neck pain, Denies odynophagia and Denies sore throat Card Denies chest pain, Denies irregular heart rhythm, Denies palpitations and Reports dyspnea on exertion (mild) Resp Denies chest congestion, Denies cough and Reports dyspnea on exertion (mild) GI Denies abdominal pain, Denies constipation, Denies dysphagia, Denies heartburn, Denies diarrhea, Denies nausea, Denies odynophagia and Denies vomiting Denies difficulty voiding, Denies nocturia, Denies dysuria and Denies urinary urgency Musc Reports back pain (over the mid to lower back), Reports myalgias (diffuse), Reports arthralgias (involving multiple joints; especially over both shoulders lately), Denies neck pain and Reports stiffness Skin/Breast Denies rash Neuro Denies dizziness and Denies headache(s) Endo Denies fatigue and Denies palpitations Physical exam (Primary Care) Vital Signs: Last Vital Signs Pulse 82 06/01/24 10:27 BP 116/80 06/01/24 10:27 Pulse Ox 98 06/01/24 10:27 Oxygen Delivery Method Room Air 06/01/24 10:27 BMI result Body Mass Index 38.7 Tobacco/Smoking Status: Tobacco use Status Tobacco use date assessed 06/01/24 06/01/24 10:28 Patient Tobacco Use Status Never used Tobacco 06/01/24 10:28 e-Cigarette/Vaping Use Never Used 06/01/24 10:28 PHQ-9: PHQ-9 Score PHQ-9: Total score 0 06/01/24 14:11 Depression Screening Interpretation: Negative Thrive Assessment: Date of Thrive Assessment Date Thrive assessed 06/01/24 06/01/24 10:28 Currently or been in a relationship where the following occur: No concerns reported Const General: no acute distress and alert HENMT Ears: TM's normal bilaterally and EAC's normal Throat: Yes posterior oropharynx normal and Yes tonsils normal (no TP congestion) Neck Neck: Yes supple and No lymphadenopathy Thyroid: Thyroid normal Resp Auscultation: clear to auscultation bilaterally, no rales and no wheezes Cardio Rate: regular rate Rhythm: regular rhythm Heart sounds: no murmurs GI Palpation (GI): Soft to palpation and nontender Auscultation: normal bowel sounds General: Yes no CVA tenderness Back/Spine/Pelvis Back: no CVA tenderness Thoracic/Lumbar Spine: paraspinal muscle tenderness bilaterally in the mid thoracic, in the lower thoracic, in the mid lumbar and in the lower lumbar, thoracic spinal tenderness and lumbar spinal tenderness Skin Rashes: no rashes Extrem General: Yes no clubbing, cyanosis or edema Right upper extremity: shoulder/upper arm Details: tenderness Location: of the A-C joint; no swelling Left upper extremity: shoulder/upper arm Details: tenderness Location: of the A- C joint and abnormal ROM (limited due to pain); no swelling Left lower extremity: knee Details: tenderness; no swelling Coding Level of Care Code Est Pt Level 3 (47447) Diagnoses Bilateral shoulder pain, unspecified chronicity M25.511; M25.512 Chronicity: unspecified Additional Codes EZ-7 Assessment Billing - EZ-7 Assessment Tool: EZ-7 Assessment 60927 ([id number]) PHQ-9 - 07853 - PHQ-9 Billing: Yes ([id number]) Assessment & Plan Assessment & Plan (1) Bilateral shoulder pain: Code(s): M25.511 - Pain in right shoulder; M25.512 - Pain in left shoulder Category: Medical Qualifiers: Chronicity: unspecified Qualified Code(s): M25.511 - Pain in right shoulder; M25.512 - Pain in left shoulder Plan: Suspect AC osteoarthritis and/or calcific tendinitis in both shoulders Will send patient for x-rays of both shoulders for further evaluation She already has appointment scheduled to see orthopedics next month on 06/23/2024 Will also refer her to physical therapy for further evaluation and management Will start him for now on Meloxicam 15 mg QD with food PRN for pain She can also continue applying topical Capsaicin 0.1% BID PRN Plan Follow up as scheduled next month Orders: Orders XR shoulder LT min 2V 06/01/24 M25.512 - Pain in left shoulder PT Evaluation and Treatment 06/01/24 M25.511 - Pain in right shoulder, M25.512 - Pain in left shoulder XR shoulder RT min 2V 06/01/24 M25.511 - Pain in right shoulder Medications: Changed From meloxicam 15 mg PO DAILY 60 days 60 tabs 3RF M19.011 - Primary osteoarthritis, right shoulder, M19.012 - Primary osteoarthritis, left shoulder To meloxicam Take with food as needed only for severe pain 15 mg PO DAILY 30 days 30 tabs 0RF M19.011 - Primary osteoarthritis, right shoulder, M19.012 - Primary osteoarthritis, left shoulder Refilled capsaicin 0.1% (Arthritis Pain Relief (capsaicin)) do not wash area for at least 30 min after application 1 appl topical BID 56.6 grams 0RF M19.011 - Primary osteoarthritis, right shoulder, M19.012 - Primary osteoarthritis, left shoulder
== END 2024-06-01 11:38 | disposition home or self-care (01) ==
LOC: HO.HMCH 10:26
PROVIDERS: PCP Internal Medicine; Visit Provider Internal Medicine
DX: M25.511 Pain in right shoulder (principal); M25.512 Pain in left shoulder

== ENCOUNTER → 2024-06-01 11:31 | Outpatient (BNV) | payer OTHER, SELFPAY | PROVIDERS: PCP Internal Medicine; Visit Provider Radiology Diagnostic Radiology | DX: M19.011 Primary osteoarthritis, right shoulder (principal); M19.012 Primary osteoarthritis, left shoulder | CPT/HCPCS: 73030 ==

== ENCOUNTER 2024-06-23 10:31 | Outpatient (AMB) | payer OTHER, SELFPAY ==
--- NOTE | 2024-06-23 10:40 | A.OFFVIS_ITS ---
Vital Signs 06/23/24 10:42 Height 5 ft Weight 198 lb BMI 38.7 Intake Visit Reasons: New Pt - left shoulder pain Intake Note: Marilu 58 yr old left hand dominant female presents today for a new patient visit for her left for her left shoulder pain. Patient is accompanied by her friend Etta (protective services case worker)for her left shoulder evaluation. States pain started about 1 yr ago and has worsen in the couple of months. No injury she can recall. Complaining of limited ROM, weakness, sharp pains radiates to her bicep. She sees her rhuematologist who injected her shoulder about 1 yr ago with 5 months of pain relief. Deneis numbness or tingling in fingers. Allergies Penicillins [PENICILLINS] Allergy (Intermediate, Verified 06/23/24 10:43) RASH/ITCHING [facility] Medical History Chronic thoracic back pain Levoscoliosis of thoracolumbar spine Bilateral primary osteoarthritis of knee Osteoarthritis of shoulders, bilateral Calcific tendinitis of left shoulder region Chest wall abscess Obesity (BMI 30-39.9) Degenerative joint disease of thoracic spine Depression Primary insomnia Lumbar spondylosis Vitamin D deficiency Impaired fasting glucose Pure hypercholesterolemia Elevated blood pressure reading JENNIFER I (cervical intraepithelial neoplasia I) Insomnia Asthma Hyperlipemia Surgical History History of varicose veins Family History Father Cancer Hypertension Bladder cancer Mother Hypertension Diabetes Uterine cancer Maternal Grandmother No problems noted. Sister No problems noted. 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
[2024-06-23 10:42] VITALS: BMI 38.7
--- NOTE | 2024-06-23 10:50 | MHC.OFFVIS ---
Vital Signs 06/23/24 10:42 Height 5 ft Weight 198 lb BMI 38.7 Intake Visit Reasons: New Pt - left shoulder pain Intake Note: Marilu 58 yr old left hand dominant Surinamese speaking female who presents today for a new patient visit for her left shoulder pain. Patient is accompanied by Etta who is her business systems developer. Patient states her pain started about 1 yr ago, no injury she can recall. States she had an injection with her tool and die machinist approx 1 yr ago with 5 month of good pain relief. Denies numbness or tingling in hand. Clinical Nursing Professor Name: Etta (patient friend) Allergies Penicillins [PENICILLINS] Allergy (Intermediate, Verified 06/23/24 10:43) RASH/ITCHING HPI HPI New Pt - left shoulder pain: Details: Ms. Maciel is a 58-year-old left-hand dominant female who presents to the office today for evaluation of left shoulder pain. She is accompanied by her friend Magy who she is comfortable with interpreting for her during the shoulder evaluation. She reports that the shoulder pain began roughly 1 year ago and has worsened over the past few months. She denies any injury or trauma to the area. She did receive a cortisone injection with rheumatology in the past which gave her 5 months of relief. She reports difficulty with range of motion overhead. Denies any numbness or tingling. [facility] Medical History Chronic thoracic back pain Levoscoliosis of thoracolumbar spine Bilateral primary osteoarthritis of knee Osteoarthritis of shoulders, bilateral Calcific tendinitis of left shoulder region Chest wall abscess Obesity (BMI 30-39.9) Degenerative joint disease of thoracic spine Depression Primary insomnia Lumbar spondylosis Vitamin D deficiency Impaired fasting glucose Pure hypercholesterolemia Elevated blood pressure reading JENNIFER I (cervical intraepithelial neoplasia I) Insomnia Asthma Hyperlipemia Surgical History History of varicose veins Family History Father Cancer Hypertension Bladder cancer Mother Hypertension Diabetes Uterine cancer Maternal Grandmother No problems noted. Sister No problems noted. 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: left hand Cognitive needs: No Hearing needs: No Vision needs: No Female Reproductive History Menstrual Age of Menarche: 14 Review of Systems Const All systems reviewed & are unremarkable except as noted in HPI and below Physical Exam Vital Signs: BMI result Body Mass Index 38.7 Const General: cooperative, healthy appearing and no acute distress Resp Effort & Inspection: normal respiratory effort and able to speak in complete sentences Cardio Rate: regular rate Peripheral pulses: Peripheral pulses 2+ throughout Skin Lesions: no lesions Rashes: no rashes Extrem Other: Right shoulder: Forward flexion to 90 degrees. Abduction to 45 degrees. Pain with cross-body reach. 3/5 strength with empty can. Negative drop arm. NVI. Office Procedures AMB Joint Injection/Aspiration Joint Injection/Aspiration Primary Site: left shoulder Prep: site was prepped using aseptic technique, ethochloride spray was applied and injection warnings given Injected: 80 mg of, DepoMedrol, with 8 mL of (2% plain lido ) and in the subcromial space Approach Used: posterolateral Procedure: The patient tolerated the procedure well, but had some pain with the injection and there was some relief with the local anesthesia Coding 60729 - Large joint Procedure code (CPT) selection complete Assessment & Plan Assessment & Plan (1) Calcific tendinitis of left shoulder: Code(s): M75.32 - Calcific tendinitis of left shoulder Category: Medical Plan Ms. Maciel is a 58-year-old left-hand dominant female who presents to the office today for evaluation of left shoulder pain. She is accompanied by her friend Magy who she is comfortable with interpreting for her during the shoulder evaluation. She reports that the shoulder pain began roughly 1 year ago and has worsened over the past few months. She denies any injury or trauma to the area. She did receive a cortisone injection with rheumatology in the past which gave her 5 months of relief. She reports difficulty with range of motion overhead. Denies any numbness or tingling. The patient was offered a cortisone injection in the left shoulder with 80 mg of DepoMedrol. The patient was explained the risks, benefits, and alternatives to receiving this injection. After receiving consent for the injection, the patient had the procedure done while in the office today. The patient tolerated the procedure well with no complications. Follow-up will be p.r.n., or sooner if needed X-rays of the left shoulder which were obtained on 06/01/2024 were reviewed by me, Ana Moss PA-C, revealed calcific tendinitis of the left shoulder. Coding Level of Care Code New Pt Level 3 (16100) Diagnoses Calcific tendinitis of left shoulder M75.32 CPT Codes Coding - 84144 Large joint: 74279 - Large joint ([id number])
--- OUTSIDE RECORDS SUMMARY | 2024-06-23 11:27 | XMS_ITS | Clinical Summary ---
Author Organization [employer] Address [address] [facility] [address] [place] [address] Care Team Providers Care Biomed Tech Name Role Phone Unavailable Primary Care Provider [...] 11/25/2023 Severe dental caries 11/25/2023 Fractured dental sabianist with loss of materi al 11/25/2023 Social [...]
--- OUTSIDE RECORDS SUMMARY | 2024-06-23 11:27 | XMS_ITS | Encounter Summary ---
Author Organization [employer] Address [address] [facility] [address] [place] [address] Care Team Providers Care Fourth Hand Name Role Phone Unavailable Primary Care Provider Unavailabl e Encounter Details Date Type Department Care Team (Latest Contact Info) Description 04/25/[address] [facility] CONVERSIONS Dental, Provider, DDS Social History [...]
== END 2024-06-23 11:23 | disposition home or self-care (01) ==
LOC: HO.HOS 10:31
PROVIDERS: PCP Internal Medicine; Visit Provider Physician Assistant
DX: M75.32 Calcific tendinitis of left shoulder (principal)
CPT/HCPCS: 20610; 99203

== ENCOUNTER 2024-06-23 15:22 | Outpatient (REF) | payer OTHER, SELFPAY ==
--- OUTSIDE RECORDS SUMMARY | 2024-06-23 15:24 | XMS_ITS | Encounter Summary ---
Author Organization [employer] Address [address] [facility] [address] [place] [address] Care Team Providers Care Medical Clinic Manager Name Role Phone Unavailable Primary Care Provider Unavailabl e Encounter Details Date Type Department Care Team (Latest Contact Info) Description 04/25/2020 Abstract [facility] CONVERSIONS Dental, Provider, DDS Social History Tobacco [...]
--- OUTSIDE RECORDS SUMMARY | 2024-06-23 15:24 | XMS_ITS | Clinical Summary ---
Author Organization [employer] Address [address] [facility] [address] [place] [address] Care Team Providers Care Unit Controller Name Role Phone Unavailable Primary Care Provider [...] 11/25/2023 Severe dental caries 11/25/2023 Fractured dental adventist with loss of materi al 11/25/2023 Social [...]
== END 2024-06-23 15:23 | disposition home or self-care (01) ==
LOC: HO.MAMMO 15:22
PROVIDERS: PCP Internal Medicine; Visit Provider Internal Medicine
DX: Z12.31 Encounter for screening mammogram for malignant neoplasm of breast (principal)
CPT/HCPCS: 20610; 77063; 77067; 99202; J1010; J2003

== ENCOUNTER → 2024-06-23 15:45 | Outpatient (BNV) | payer OTHER, SELFPAY | PROVIDERS: PCP Internal Medicine; Visit Provider Internal Medicine | DX: Z12.31 Encounter for screening mammogram for malignant neoplasm of breast (principal) | CPT/HCPCS: 77063; 77067 ==

== ENCOUNTER 2024-07-03 13:13 | Outpatient (AMB) | payer OTHER, SELFPAY ==
[2024-07-03 13:23] VITALS: BP 120/80; PULSE 78; O2SAT 97; BMI 38.1
--- NOTE | 2024-07-03 13:23 | A.OFFPC_ITS ---
Vital Signs 07/03/24 13:23 Height 5 ft Weight 195 lb 2 oz BMI 38.1 BP 120/80 Blood Pressure Location Lt brachial Position Sitting Pulse 78 Pulse Source Pulse Oximeter Pulse Oximetry (%) 97 Oxygen Delivery Method Room Air Intake Visit Reasons: Follow Up Labs Supervisor [employer] Required: No Accompanied by: Self / Same As Patient Allergies Penicillins [PENICILLINS] Allergy (Intermediate, Verified 07/03/24 13:49) RASH/ITCHING Medication List - Last Reconciled 07/03/24 by Nathan Xavier MD acetaminophen ER 650 mg PO Q8H PRN 30 days albuterol sulfate 90 mcg/actuation (ProAir HFA) 2 puffs inhalation Q6H PRN 30 days atorvastatin 40 mg PO QPM 90 days calcium acetate(phosphat bind) 667 mg PO TID capsaicin 0.1% (Arthritis Pain Relief (capsaicin)) 1 appl topical BID cholecalciferol (vitamin D3) 25 mcg PO DAILY 90 days hydroxyzine pamoate 50 mg PO BID PRN meloxicam 15 mg PO DAILY 30 days nebulizers (Compact Compressor Nebulizer) As directed sertraline 100 mg PO DAILY trazodone 50 mg PO DAILY Tobacco use date assessed: 07/03/24 Dental Screening Dental Screen Date: 07/03/24 Did you have a dental visit in the last 12 months?: Yes Did you have a dental problem in the last 6 months where you did not have access to dental care?: No Was dental information given to patient?: Patient has dentist HPI Follow Up Labs HPI Details Patient comes in today for her follow up visit States that she is moving to [place] for good next month on 07/20/2024 so today will be her last visit with us before her move States that she still has some pain in her shoulders but the cortisone injections that she received from orthopedics a couple of weeks ago helped a lot She denies any headaches or dizziness Denies any chest pains, no increased SOB No nausea/vomiting, no abdominal pain No change in bowel habits noted She had her follow up labs done last month - to discuss her results [facility] Medical History Chronic thoracic back pain Levoscoliosis of thoracolumbar spine Bilateral primary osteoarthritis of knee Osteoarthritis of shoulders, bilateral Calcific tendinitis of left shoulder region Chest wall abscess Obesity (BMI 30-39.9) Degenerative joint disease of thoracic spine Depression Primary insomnia Lumbar spondylosis Vitamin D deficiency Impaired fasting glucose Pure hypercholesterolemia Elevated blood pressure reading JENNIFER I (cervical intraepithelial neoplasia I) Insomnia Asthma Hyperlipemia Surgical History History of varicose veins Family History Father Cancer Hypertension Bladder cancer Mother Hypertension Diabetes Uterine cancer Maternal Grandmother No problems noted. Sister No problems noted. 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 1. Little interest or pleasure in doing things: not at all 2. Feeling down, depressed, or hopeless: several days 3. Trouble falling or staying asleep, or sleeping too much: several days 4. Feeling tired or having little energy: several days 5. Poor appetite or overeating: not at all 6. Feeling bad about yourself - or that you are a failure or have let yourself or your family down: not at all 7. Trouble concentrating on things, such as reading the newspaper or watching television: not at all 8. Moving or speaking so slowly that other people could have noticed. Or the opposite - being so fidgety or restless that you have been moving around a lot more than usual: not at all 9. Thoughts that you would be better off or of hurting yourself in some way: not at all Total score: 3 Depression Screening Interpretation: Negative Depression Screening Done: Yes 22080 - PHQ-9 Billing: Yes Source: Developed by Drs. Yves Lam, María Alfred, Negrito Mcguire and colleagues, with an educational terri from [employer]. Thrive Questionnaire Date Thrive assessed: 07/03/24 I am a: Patient What is your living situation today?: I have a steady place to live Within the past 12 months, did the food you bought not last and you didn't have the money to get more?: I choose not to answer this question Within the past 12 months, did you worry whether your food would run out before you got money to buy more?: I choose not to answer this question Do you have trouble paying for medicines?: No Do you have trouble getting transportation to medical appointments?: No Do you have trouble paying your heating and electricity bill?: No Do you have trouble taking care of your child, family member or friend?: No Do you have trouble with day-to-day activities such as bathing, preparing meals, shopping, managing finances, etc.?: No Are you currently unemployed and looking for a job?: Yes Are you interested in more education?: No Please select the resources that you would like help with: None Currently or been in a relationship where the following occur: No concerns reported THRIVE Score: 0 AUDIT C Alcohol Use Questionnaire (AUDIT-C) 1. How often do you have a drink containing alcohol?: Never 3. How often do you have six or more drinks on one occasion?: Never Total Score: 0 Score Reviewed/Action Taken: Yes EZ-7 AMB Questionnaire EZ-7 Date EZ - 7 assessed: 07/03/24 Feeling nervous, anxious, or on edge: 1 = Several days Not being able to stop or control worryin = Several days Worrying too much about different things: 0 = Not at all Trouble relaxin = Several days Being so restless that it is hard to sit still: 1 = Several days Becoming easily annoyed or irritable: 0 = Not at all Feeling afraid as if something awful might happen: 0 = Not at all Total EZ-7 score (0-4 normal; 5-9 mild; 10-14 moderate; 15-21 severe): 4 Source: Developed by Drs. Yves Lam, María Alfred, Negrito Mcguire and colleagues, with an educational terri from [employer]. Review of Systems Const Denies chills, Denies fatigue, Denies fever(s) and Denies headache(s) ENT Denies dysphagia, Denies dizziness, Denies otalgia, Denies headache(s), Denies neck pain, Denies odynophagia and Denies sore throat Card Denies chest pain, Denies irregular heart rhythm, Denies palpitations and Reports dyspnea on exertion (mild) Resp Denies chest congestion, Denies cough and Reports dyspnea on exertion (mild) GI Denies abdominal pain, Denies constipation, Denies dysphagia, Denies heartburn, Denies diarrhea, Denies nausea, Denies odynophagia and Denies vomiting Denies difficulty voiding, Denies nocturia, Denies dysuria and Denies urinary urgency Musc Reports back pain (over the mid to lower back), Reports myalgias (diffuse), Reports arthralgias (involving multiple joints; especially over both shoulders ), Denies neck pain and Reports stiffness Skin/Breast Denies rash Neuro Denies dizziness and Denies headache(s) Endo Denies fatigue and Denies palpitations Physical exam (Primary Care) Vital Signs: Last Vital Signs Pulse 78 07/03/24 13:23 BP 120/80 07/03/24 13:23 Pulse Ox 97 07/03/24 13:23 Oxygen Delivery Method Room Air 07/03/24 13:23 BMI result Body Mass Index 38.1 Tobacco/Smoking Status: Tobacco use Status Tobacco use date assessed 07/03/24 07/03/24 13:30 Patient Tobacco Use Status Never used Tobacco 07/03/24 13:30 e-Cigarette/Vaping Use Never Used 07/03/24 13:30 PHQ-9: PHQ-9 Score PHQ-9: Total score 3 07/03/24 13:30 Depression Screening Interpretation: Negative Thrive Assessment: Date of Thrive Assessment Date Thrive assessed 07/03/24 07/03/24 13:30 Currently or been in a relationship where the following occur: No concerns reported Const General: no acute distress and alert HENMT Ears: TM's normal bilaterally and EAC's normal Throat: Yes posterior oropharynx normal and Yes tonsils normal (no TP congestion) Neck Neck: Yes supple and No lymphadenopathy Thyroid: Thyroid normal Resp Auscultation: clear to auscultation bilaterally, no rales and no wheezes Cardio Rate: regular rate Rhythm: regular rhythm Heart sounds: no murmurs GI Palpation (GI): Soft to palpation and nontender Auscultation: normal bowel sounds General: Yes no CVA tenderness Back/Spine/Pelvis Back: no CVA tenderness Thoracic/Lumbar Spine: paraspinal muscle tenderness bilaterally in the mid thoracic, in the lower thoracic, in the mid lumbar and in the lower lumbar, thoracic spinal tenderness and lumbar spinal tenderness Skin Rashes: no rashes Extrem General: Yes no clubbing, cyanosis or edema Right upper extremity: shoulder/upper arm Details: tenderness Location: of the A-C joint; no swelling Left upper extremity: shoulder/upper arm Details: tenderness Location: of the A- C joint and abnormal ROM (limited due to pain); no swelling Left lower extremity: knee Details: tenderness; no swelling Results Reviewed Results Reviewed: Laboratory Tests 05/16/24 05/16/24 09:56 10:00 WBC 8.9 Hgb 12.7 Hct 38.3 Plt Count 334 Sodium 142 Potassium 4.2 Creatinine 0.72 Estimated GFR > 60 Fasting Glucose 114 H Hemoglobin A1c % 6.1 H Calcium 9.3 AST 25 ALT 18 Triglycerides 105 Cholesterol 180 LDL Cholesterol, Calc 103 H HDL Cholesterol 56 25-OH Vitamin D Total 30.7 TSH 2.01 Ur Specific [place] 1.020 Urine Protein Trace Urine Glucose (UA) Negative Urine Blood Trace H Urine Nitrite Negative Ur Leukocyte Esterase Moderate (2+) H Coding Level of Care Code Est Pt Level 4 (56487) Complex EM visit Add On G2211 Diagnoses Pure hypercholesterolemia E78.00 Elevated blood pressure reading R03.0 Impaired fasting glucose R73.01 Vitamin D deficiency E55.9 Lumbar spondylosis M47.816 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.814 Spinal osteoarthritis complication: without myelopathy or radiculopathy Bilateral primary osteoarthritis of knee M17.0 Bilateral shoulder pain, unspecified chronicity M25.511; M25.512 Chronicity: unspecified Insomnia, unspecified type G47.00 Insomnia type: unspecified Depression, unspecified depression type F32.9 Depression Type: unspecified Obesity (BMI 30-39.9) E66.9 Additional Codes PHQ-9 - 80565 - PHQ-9 Billing: Yes ([id number]) Assessment & Plan Assessment & Plan (1) Pure hypercholesterolemia: Code(s): E78.00 - Pure hypercholesterolemia, unspecified Category: Medical Plan: Results of her labs done last month reviewed and discussed with patient - she is advised that her cholesterol levels have improved slightly from previous Reinforced low cholesterol diet Continue Atorvastatin 40 mg QD As she is relocating to [place] next month, will not order any follow up labs today She is advised to request for a copy of her recent labs results as well as her medical summary and medication list at checkout today to bring to her doctor in [place] when she starts seeing them soon (2) Elevated blood pressure reading: Code(s): R03.0 - Elevated blood-pressure reading, without diagnosis of hypertension Category: Medical Plan: Reinforced low sodium diet Her blood pressure has been better controlled lately She is reminded to continue monitoring her blood pressure regularly (3) Impaired fasting glucose: Code(s): R73.01 - Impaired fasting glucose Category: Medical Plan: Her FBS is again elevated at 114 mg/dl and her HgbA1c has gone up to 6.1% (from 5.9% previously) on her labs done last month - she is advised that she is considered a borderline diabetic Reinforced low calorie diet/exercise as tolerated (4) Vitamin D deficiency: Code(s): E55.9 - Vitamin D deficiency, unspecified Category: Medical Plan: Continue Vitamin D3 1000 units QD (5) Lumbar spondylosis: Code(s): M47.816 - Spondylosis without myelopathy or radiculopathy, lumbar region Category: Medical Plan: Reinforced activity and weight-lifting restrictions X-rays done a couple of years ago showed (+) mild lumbar spondylosis; repeat x- rays done in November 2022 revealed (+) mild to moderate thoracolumbar spondylosis Patient takes OTC Tylenol and/or Ibuprofen 600 mg TID as needed with (+) relief of her low back pain; may also continue with warm compresses PRN for symptomatic relief (6) Degenerative joint disease of thoracic spine: Comment: Thoracic spine x-rays done a couple of days ago showed (+) mild levoscoliosis and mild to moderate multilevel degenerative disc disease Code(s): M47.814 - Spondylosis without myelopathy or radiculopathy, thoracic region Category: Medical Qualifiers: Spinal osteoarthritis complication: without myelopathy or radiculopathy Qualified Code(s): M47.814 - Spondylosis without myelopathy or radiculopathy, thoracic region Plan: Reinforced activity and weight lifting restrictions to minimize aggravating her back pain Repeat thoracic spine x-rays done last November 2022 revealed (+) multi-level moderate to marked thoracic spondylosis and mild thoracolumbar levoscoliosis (7) Bilateral primary osteoarthritis of knee: Code(s): M17.0 - Bilateral primary osteoarthritis of knee Category: Medical Plan: Left knee x-rays done last November 2022 revealed (+) OA changes Have advised her she can request for a referral to orthopedics when needed from her PCP in [place] in the future (8) Bilateral shoulder pain: Code(s): M25.511 - Pain in right shoulder; M25.512 - Pain in left shoulder Category: Medical Qualifiers: Chronicity: unspecified Qualified Code(s): M25.511 - Pain in right shoulder; M25.512 - Pain in left shoulder Plan: X-rays of both shoulders done in November 2022 also revealed (+) OA changes She was referred to rheumatology for her diffuse arthralgias and joint pains and she ended up receiving a cortisone injection into her shoulder back then, which she feels helped somewhat Due to increasing shoulder pain, she requested to have x-rays done again on her shoulders last month - x-rays revealed moderate osteoarthritis of the glenohumeral joint in both shoulders and mild calcific tendinopathy in the left shoulder She recently received cortisone injections into her shoulder from orthopedics last week, which she states helped somewhat Continue Meloxicam 15 mg QD with food PRN for pain and topical Capsaicin 0.1% BID PRN (9) Insomnia: Code(s): G47.00 - Insomnia, unspecified Category: Medical Qualifiers: Insomnia type: unspecified Qualified Code(s): G47.00 - Insomnia, unspecified Plan: Sleep hygiene reinforced Continue Trazodone 50 mg daily and OTC Melatonin 10 mg daily at bedtime (10) Depression: Code(s): F32.9 - Major depressive disorder, single episode, unspecified Category: Medical Qualifiers: Depression Type: unspecified Qualified Code(s): F32.9 - Major depressive disorder, single episode, unspecified Plan: Continue Sertraline 100 mg QD Follow-up with Psychiatry as scheduled (11) Obesity (BMI 30-39.9): Code(s): E66.9 - Obesity, unspecified Category: Medical Plan: Reinforced diet/exercise as tolerated/lose weight Plan As patient is relocating to [place] next month, will not have office schedule her for any follow up appointment today
--- OUTSIDE RECORDS SUMMARY | 2024-07-03 15:41 | XMS_ITS | Encounter Summary ---
Author Organization [employer] Address [address] [facility] [address] [place] [address] Care Team Providers Care Executive Manager Name Role Phone Unavailable Primary Care Provider Unavailabl e Encounter Details Date Type Department Care Team (Latest Contact Info) Description 04/25/2020 Abstract [facility] CONVERSIONS Dental, Provider, DDS Social History [...]
--- OUTSIDE RECORDS SUMMARY | 2024-07-03 15:41 | XMS_ITS | Clinical Summary ---
Author Organization [employer] Address [address] [facility] [address] [place] [address] Care Team Providers Care Cash Application Representative Name Role Phone Unavailable Primary Care Provider [...] 11/25/2023 Severe dental caries 11/25/2023 Fractured dental mormonism with loss of materi al 11/25/2023 Social [...]
== END 2024-07-03 13:56 | disposition home or self-care (01) ==
LOC: HO.HMCH 13:14
PROVIDERS: PCP Internal Medicine; Visit Provider Internal Medicine
DX: E78.00 Pure hypercholesterolemia, unspecified (principal); R03.0 Elevated blood-pressure reading, without diagnosis of hypertension; E66.9 Obesity, unspecified; Z68.38 Body mass index [BMI] 38.0-38.9, adult; R73.01 Impaired fasting glucose; E55.9 Vitamin D deficiency, unspecified; M47.816 Spondylosis without myelopathy or radiculopathy, lumbar region; M47.814 Spondylosis without myelopathy or radiculopathy, thoracic region; M17.0 Bilateral primary osteoarthritis of knee; M25.511 Pain in right shoulder; M25.512 Pain in left shoulder; G47.00 Insomnia, unspecified

== ENCOUNTER → 2024-07-03 13:13 | Outpatient (BNVA) | payer OTHER, SELFPAY | PROVIDERS: PCP Internal Medicine; Visit Provider Internal Medicine | DX: E78.00 Pure hypercholesterolemia, unspecified (principal); R03.0 Elevated blood-pressure reading, without diagnosis of hypertension; R73.01 Impaired fasting glucose; E55.9 Vitamin D deficiency, unspecified; M47.816 Spondylosis without myelopathy or radiculopathy, lumbar region; M47.814 Spondylosis without myelopathy or radiculopathy, thoracic region; M17.0 Bilateral primary osteoarthritis of knee; M25.511 Pain in right shoulder; M25.512 Pain in left shoulder; G47.00 Insomnia, unspecified; F32.9 Major depressive disorder, single episode, unspecified; E66.9 Obesity, unspecified; Z68.38 Body mass index [BMI] 38.0-38.9, adult; Z79.899 Other long term (current) drug therapy | CPT/HCPCS: 96127; 99212 ==

== ENCOUNTER 2024-07-07 10:49 | Outpatient (AMB) | payer OTHER, SELFPAY ==
[2024-07-07 11:00] VITALS: BMI 38.1
--- NOTE | 2024-07-07 11:00 | A.OFFVIS_ITS ---
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 Sister No problems noted. 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: left hand Cognitive needs: No Hearing needs: No Vision needs: No Female Reproductive History Menstrual Age of Menarche: 14 Physical Exam Vital Signs: BMI result Body Mass Index 38.1 Skin Other: Bilateral skin underneath the breast with skin candidiasis Assessment & Plan Assessment & Plan (1) Skin candidiasis: Comment: Under needs both breasts Code(s): B37.2 - Candidiasis of skin and nail Category: Medical Plan: The patient was instructed to keep the area dry, use hair blower after showering, use baby powder without Talc and Desitin cream in addition to applying lotrisone cream BID x5 days Medications: New clotrimazole-betamethasone 1-0.05 % 1 appl topical BID 5 days 45 grams 0RF Coding Level of Care Code Est Pt Level 3 (34708) Diagnoses Skin candidiasis B37.2
== END 2024-07-07 11:12 | disposition home or self-care (01) ==
LOC: HO.HWS 10:49
PROVIDERS: PCP Internal Medicine; Visit Provider Obstetrics & Gynecology
DX: B37.2 Candidiasis of skin and nail (principal)
CPT/HCPCS: 99213

== ENCOUNTER → 2024-07-07 10:49 | Outpatient (BNVA) | payer OTHER, SELFPAY | PROVIDERS: PCP Internal Medicine; Visit Provider Obstetrics & Gynecology | DX: B37.2 Candidiasis of skin and nail (principal) | CPT/HCPCS: 99212 ==